=== PATIENT | female | born 1955 | race African-American/Black ===

== ENCOUNTER 2017-05-12 22:12 | Emergency (ER) | payer BC ==
[2017-05-12 22:48] LABS: APPEARANCE,URINE SLIGHTLY-CLOUDY; BILIRUBIN,URINE NEGATIVE (NEGATIVE); GLUCOSE, URINE NEGATIVE (NEGATIVE); KETONES,URINE NEGATIVE (NEGATIVE); LEUKOCYTE ESTERASE,URINE NEGATIVE (NEGATIVE); NITRITE,URINE NEGATIVE (NEGATIVE); PROTEIN,URINE NEGATIVE (NEGATIVE); URINE SPECIFIC GRAVITY 1.025; UROBILINOGEN,URINE NEGATIVE mg/dL (<2.0)
[2017-05-12] MEDS ORDERED: PANTOPRAZOLE SODIUM 40 MG VIAL IV ONE (23:28)
[2017-05-12 23:44] LABS: ABSOLUTE EOSINOPHILS # (AUTO) 0.3 10^3/uL (0.0-0.6); ABSOLUTE LYMPHOCYTES (AUTO) 2.1 10^3/uL (0.5-4.7); ABSOLUTE MONOCYTES (AUTO) 0.5 10^3/uL (0.1-1.4); ABSOLUTE NEUT (AUTO) 1.5 10^3/uL (1.7-8.2); BASOPHILS % (AUTO) 0.8 % (0-2); EOSINOPHILS % (AUTO) 6.3 % (0-6); HEMATOCRIT 36.9 % (36.0-47.0); HEMOGLOBIN 12.6 g/dL (12.0-15.5); HGB HCT DIFFERENCE 0.9; LYMPHOCYTES % (AUTO) 46.6 % (13-45); MEAN CORPUSCULAR HEMOGLOBIN 29.3 pg (27.0-33.4); MEAN CORPUSCULAR HGB CONC 34.2 g/dL (32.0-36.0); MEAN CORPUSCULAR VOLUME 86 fl (80-97); RED BLOOD COUNT 4.29 10^6/uL (3.72-5.28); RED CELL DISTRIBUTION WIDTH 13.8 % (11.5-14.0); SEGMENTED NEUTROPHILS % (AUTO) 34.3 % (42-78); WHITE BLOOD COUNT 4.5 10^3/uL (4.0-10.5)
[2017-05-13 00:03] LABS: ALANINE AMINOTRANSFERASE 34 U/L (9-52); ALKALINE PHOSPHATASE 78 U/L (38-126); ANION GAP 10 (5-19); ASPARTATE AMINO TRANSFERASE 24 U/L (14-36); BILIRUBIN,DIRECT 0.4 mg/dL (0.0-0.4); BILIRUBIN,TOTAL 1.1 mg/dL (0.2-1.3); BLOOD UREA NITROGEN 28 mg/dL (7-20); CARBON DIOXIDE 24 mmol/L (22-30); CHLORIDE 107 mmol/L (98-107); CREATININE RESULT 0.94 mg/dL (0.52-1.25); GLUCOSE 168 mg/dL (75-110); LIPASE 79.4 U/L (23-300); POTASSIUM 4.3 mmol/L (3.6-5.0); SODIUM 140.8 mmol/L (137-145); TOTAL PROTEIN 6.9 g/dL (6.3-8.2)
[2017-05-13 00:15] LABS: PROTHROMBIN TIME 13.2 SEC (11.4-15.4)
[2017-05-13 00:16] LABS: PARTIAL THROMBOPLASTIN TIME 27.5 SEC (23.5-35.8)
[2017-05-13] MEDS ORDERED: NORMAL SALINE 1000 ML 1,000 ML IV ONE ×2 (00:18)
--- NOTE | 2017-05-13 00:28 | ER Document Report ---
ED General - General Chief Complaint: Rectal Pain Stated Complaint: BLOOD IN STOOL Time Seen by Provider: 05/12/17 23:11 TRAVEL OUTSIDE OF THE [place] IN LAST 30 DAYS: No - HPI Patient complains to provider of: Epigastric abdominal pain right red blood per rectum dark stools Notes: Patient coming in for the above-stated symptoms. States started earlier tonight. Patient states yesterday started having epigastric abdominal pain patient states took Prevacid and some Mylanta today started having bright red blood and dark stools. Patient states a history of H. pylori infection diagnosed last year on a EGD patient also states colonoscopy states diagnosed with a small amount diverticulosis and hemorrhoids. Patient also states she is currently on naproxen for arthritic pain and sciatica. - Related Data Allergies/Adverse Reactions: codeine [Codeine] Allergy (Verified 05/12/17 22:14) Past Medical History - Social History Smoking Status: Never Smoker Family History: Reviewed & Not Pertinent Patient has suicidal ideation: No Patient has homicidal ideation: No - Past Medical History Cardiac Medical History: Reports: Hx Hypertension Endocrine Medical History: Denies: Hx Diabetes Mellitus Type 1, Hx Diabetes Mellitus Type 2 Renal/ Medical History: Denies: Hx Peritoneal Dialysis GI Medical History: Reports: Hx Gastroesophageal Reflux Disease Past Surgical History: Reports: Hx Cholecystectomy, Hx Hysterectomy, Hx Oral Surgery - Immunizations Hx Diphtheria, Pertussis, Tetanus Vaccination: Yes Review of Systems - Review of Systems Constitutional: No symptoms reported EENT: No symptoms reported Cardiovascular: No symptoms reported Respiratory: No symptoms reported Gastrointestinal: Abdominal pain, Black stools, Rectal bleeding Genitourinary: No symptoms reported Female Genitourinary: No symptoms reported Musculoskeletal: No symptoms reported Skin: No symptoms reported Hematologic/Lymphatic: No symptoms reported Neurological/Psychological: No symptoms reported -: Yes All other systems reviewed and negative Physical Exam - Vital signs Vitals: Temp Pulse Resp BP Pulse Ox 98.8 F 88 18 143/80 H 98 05/12/17 22:28 05/12/17 22:28 05/12/17 22:28 05/12/17 22:28 05/12/17 22:28 Interpretation: Normal - General General appearance: Appears well, Alert - HEENT Head: Normocephalic, Atraumatic Eyes: Normal Pupils: PERRL - Respiratory Respiratory status: No respiratory distress Chest status: Nontender Breath sounds: Normal Chest palpation: Normal - Cardiovascular Rhythm: Regular Heart sounds: Normal auscultation Murmur: No - Abdominal Inspection: Normal Distension: No distension Bowel sounds: Normal Tenderness: Nontender Organomegaly: No organomegaly - Rectal Stool: Heme positive, Black, Bloody Hemorrhoids: External - Back Back: Normal, Nontender - Extremities General upper extremity: Normal inspection, Nontender, Normal color, Normal ROM , Normal temperature General lower extremity: Normal inspection, Nontender, Normal color, Normal ROM , Normal temperature, Normal weight bearing. No: Ben's sign - Neurological Neuro grossly intact: Yes Cognition: Normal Orientation: AAOx4 Shakir Coma Scale Eye Opening: Spontaneous Shakir Coma Scale Verbal: Oriented Shakir Coma Scale Motor: Obeys Commands Shakir Coma Scale Total: 15 Speech: Normal Motor strength normal: LUE, RUE, LLE, RLE Sensory: Normal - Psychological Associated symptoms: Normal affect, Normal mood - Skin Skin Temperature: Warm Skin Moisture: Dry Skin Color: Normal Course - Re-evaluation Re-evalutation: 05/13/17 00:27 Hemoglobin this time is stable. Vital signs look to be stable to. Patient will have a CT scan performed to evaluate for acute diverticulitis however if this is negative due to lack of GI coverage here more likely patient will require transfer. 05/13/17 02:41 CT scan shows 2 abdominal masses. Concerning for malignancy I did review the CAT scan with the patient. No further bleeding with the patient's history of H pylori and NSAID use now with masses could be a combination upper and lower GI bleed. Discussed with Dr. Jordan of [facility] for transfer patient was be placed on a list as that [facility] at this time is pre-diversion status. I did contact [facility] as well and was notified by the transfer worker doubt that all the information was given about the patient that the hospitalist principal product manager was except once a IMCU bed came up and however this is more likely not occur until later on in the morning. Patient only agreed to transfer to [facility] or [facility]. I did offer other hospitals however patient declined this time. Patient otherwise is stable do believe she will be able to wait until a bed opens up more likely at [facility] patient will be continued be monitored will repeat H&H will continue Protonix. - Vital Signs Vital signs: Temp Pulse Resp BP Pulse Ox 98.8 F 88 15 120/78 99 05/12/17 22:28 05/12/17 22:28 05/13/17 02:01 05/13/17 02:01 05/13/17 02:01 - Laboratory Result Diagrams: 05/12/17 23:30 05/12/17 23:30 Laboratory results interpreted by me: 05/12/17 05/12/17 05/12/17 22:25 23:30 23:30 Seg Neutrophils % 34.3 L Lymphocytes % 46.6 H Eosinophils % 6.3 H Absolute Neutrophils 1.5 L BUN 28 H Glucose 168 H Urine Ascorbic Acid 40 H Discharge - Discharge Clinical Impression: GI bleed Qualifiers: GI bleed type/associated pathology: unspecified gastrointestinal hemorrhage type Qualified Code(s): K92.2 - Gastrointestinal hemorrhage, unspecified Abdominal mass Qualifiers: Abdominal location: unspecified location Qualified Code(s): R19.00 - Intra- abdominal and pelvic swelling, mass and lump, unspecified site Condition: Good Referrals: BERTO MCCLOUD MD [Primary Care Provider] - Follow up as needed
--- NOTE | 2017-05-13 01:44 | RADIOLOGY REPORT (SQ) ---
EXAM DESCRIPTION: CT ABD/PELVIS WITH IV ONLY CLINICAL HISTORY: 61 years Female, abd pain gi bleeding COMPARISON: CR, L-spine, 11/17/2015. TECHNIQUE: 100 mL Isovue-370 IV contrast. This exam was performed according to our departmental dose-optimization program which includes use of Automated Exposure Control, adjustment of the mA and/or kV according to patient size and/or use of iterative reconstruction technique. FINDINGS: 8.6 x nine x 6.0 cm macrolobulated heterogeneous solid mass of the mid and lower central abdomen, moderate upper abdominal, retroperitoneal, mesenteric, and paraceliac lymphadenopathy and globular soft tissue prominence of the sigmoid measuring up to 4.7 cm in diameter. Malignancy is of first consideration. Indeterminate 1.7 cm right renal lesion. No free fluid, no free air, no bowel obstruction. Small hiatal hernia. Cholecystectomy clips. Mild prominence of intrahepatic ducts. 7 cm supraumbilical midline ventral herniation of fat only. Colonic diverticulosis. Appendix not discerned. No evidence of appendicitis. Inferior chest, liver, spleen, adrenals, left kidney, vasculature, moderate lower thoracic diffuse idiopathic skeletal hyperostosis, and bony skeleton appear otherwise unremarkable. IMPRESSION: 1. A 9-cm macrolobulated heterogeneous solid mass of the mid and lower central abdomen, moderate upper abdominal, retroperitoneal, mesenteric, and paraceliac lymphadenopathy and globular soft tissue prominence of the sigmoid measuring up to 4.7 cm in diameter. Malignancy is of first consideration. Optical Instrument Inspector consultation advised. 2. Indeterminate 1.7 cm right renal lesion may indicate a hemorrhagic cyst; cannot exclude neoplasm. Dynamic contrast MRI or CT of the abdomen recommended.
[2017-05-13 04:49] LABS: HEMATOCRIT 32.8 % (36.0-47.0); HEMOGLOBIN 11.1 g/dL (12.0-15.5); HGB HCT DIFFERENCE 0.5; MEAN CORPUSCULAR HEMOGLOBIN 29.3 pg (27.0-33.4); MEAN CORPUSCULAR HGB CONC 33.8 g/dL (32.0-36.0); MEAN CORPUSCULAR VOLUME 87 fl (80-97); RED BLOOD COUNT 3.78 10^6/uL (3.72-5.28); RED CELL DISTRIBUTION WIDTH 14.2 % (11.5-14.0); WHITE BLOOD COUNT 3.7 10^3/uL (4.0-10.5)
[2017-05-13] MEDS ORDERED: PANTOPRAZOLE SODIUM 40 MG VIAL IV SCH (10:00)
[2017-05-13 14:06] VITALS: BP 126/84
== END 2017-05-13 16:00 | disposition short-term general hospital (02) ==
LOC: ER 22:12
DX: K92.2 Gastrointestinal hemorrhage, unspecified (principal); R19.09 Other intra-abdominal and pelvic swelling, mass and lump; R10.11 Right upper quadrant pain; M19.90 Unspecified osteoarthritis, unspecified site; M54.30 Sciatica, unspecified side; I10 Essential (primary) hypertension; Z79.1 Long term (current) use of non-steroidal anti-inflammatories (NSAID); Z87.19 Personal history of other diseases of the digestive system; Z88.5 Allergy status to narcotic agent; Z90.49 Acquired absence of other specified parts of digestive tract; Z90.710 Acquired absence of both cervix and uterus
CPT/HCPCS: 96376; 99284; 96361; 96374; 86900; 86901; 36415; 86850; 83690; 85025; 85027; 85610; 85730; 82272; 80053; 81001; 74177; S0164 ×2; J7030

== ENCOUNTER 2018-01-02 17:00 | Emergency (ER) | payer BC ==
[2018-01-02] MEDS ORDERED: FENTANYL CITRATE INJ/PF 100 MCG/2 ML AMPUL IV ONE (17:16)
[2018-01-02] MEDS ORDERED: METOCLOPRAMIDE HCL ORAL SOLN 10 MG/10 ML UDCUP PO ONE (17:16)
[2018-01-02] MEDS ORDERED: NORMAL SALINE 1000 ML 1,000 ML IV ONE (17:17)
--- NOTE | 2018-01-02 17:19 | ER Document Report ---
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 Had a chemotherapy last week, last 2-3 days having epigastric to mid abdominal pain associated with nausea no vomiting. And also had multiple loose stools. Described as brown in color. She took Imodium which has subsided to some extent. Denies any fever chills or other constitutional symptoms TRAVEL OUTSIDE OF THE [place] IN LAST 30 DAYS: No - Related Data Allergies/Adverse Reactions: codeine [Codeine] Allergy (Verified 05/12/17 22:14) Past Medical History - Past Medical History Cardiac Medical History: Reports: Hx Hypertension Endocrine Medical History: Denies: Hx Diabetes Mellitus Type 1, Hx Diabetes Mellitus Type 2 Renal/ Medical History: Denies: Hx Peritoneal Dialysis GI Medical History: Reports: Hx Gastroesophageal Reflux Disease Past Surgical History: Reports: Hx Cholecystectomy, Hx Hysterectomy, Hx Oral Surgery - Immunizations Hx Diphtheria, Pertussis, Tetanus Vaccination: Yes Physical Exam - Vital signs Vitals: Temp Pulse Resp BP Pulse Ox 99.2 F 108 H 16 128/81 H 98 01/02/18 17:07 01/02/18 17:07 01/02/18 17:07 01/02/18 17:07 01/02/18 17:07 Course - Vital Signs Vital signs: Temp Pulse Resp BP Pulse Ox 99.2 F 108 H 16 128/81 H 98 01/02/18 17:07 01/02/18 17:07 01/02/18 17:07 01/02/18 17:07 01/02/18 17:07 Doctor's Discharge - Discharge Referrals: BERTO MCCLOUD MD [Primary Care Provider] - Follow up as needed
[2018-01-02 17:54] LABS: APPEARANCE,URINE CLEAR; BILIRUBIN,URINE NEGATIVE (NEGATIVE); COLOR,URINE YELLOW; GLUCOSE, URINE NEGATIVE (NEGATIVE); KETONES,URINE NEGATIVE (NEGATIVE); LEUKOCYTE ESTERASE,URINE NEGATIVE (NEGATIVE); NITRITE,URINE NEGATIVE (NEGATIVE); PROTEIN,URINE NEGATIVE (NEGATIVE); URINE SPECIFIC GRAVITY 1.011
--- NOTE | 2018-01-02 18:38 | RADIOLOGY REPORT (SQ) ---
EXAM DESCRIPTION: ACUTE ABDOMEN SERIES COMPLETED DATE/TIME: 01/02/2018 6:01 pm REASON FOR STUDY: Abdominal pain COMPARISON: None. NUMBER OF VIEWS: Three views. TECHNIQUE: Frontal chest, supine abdomen and upright/ abdomen radiographic images acquired. LIMITATIONS: None. FINDINGS: CHEST: Cannot exclude limited retrocardiac infiltrate on the left. FREE AIR: None. No abnormal gas collections. BOWEL GAS PATTERN: Nonobstructive pattern. No dilated loops or air fluid levels. CALCIFICATIONS: No suspicious calcifications. HARDWARE: None in the abdomen. SOFT TISSUES: No gross mass or suggestion of organomegaly. BONES: No acute fracture. No worrisome bone lesions. OTHER: No other significant finding. IMPRESSION: Cannot exclude limited left lower lobe pneumonia. TECHNICAL DOCUMENTATION: JOB ID: [id number] [employer]- All Rights Reserved Reading location - IP/workstation name: [email or web address]
--- NOTE | 2018-01-02 18:59 | ER Document Report ---
ED General - General Chief Complaint: Abdominal Pain Stated Complaint: STOMACH PAIN Time Seen by Provider: 01/02/18 17:16 Notes: 62-year-old female patient to the emergency department for evaluation of diarrhea and abdominal pain. Patient has lymphoma. Had a mass lymph tissue excised in her abdomen approximately 5 months ago. Started chemotherapy. Currently on her second round of chemotherapy developed diarrhea after both rounds of chemotherapy. She denies any blood in the stool at this time. No fever, chills, sweats. Today she is concerned because there is diarrhea with pain. Has had a history of diverticulosis with rectal bleeding. She called her oncologist at [facility] and she was advised to come in for evaluation. Patient denies any severe nausea or vomiting. No other major symptoms at this time. Patient does have a blood clot in the left lower extremity and is currently on blood thinners. Denies any shortness of breath at this time. Patient has a portacatheter in the right subclavian area. Other indwelling lines. Recent PET scans show TRAVEL OUTSIDE OF THE [place] IN LAST 30 DAYS: No - Related Data Allergies/Adverse Reactions: aspirin Adverse Reaction (Verified 01/02/18 17:23) codeine [Codeine] Adverse Reaction (Verified 01/02/18 17:23) Past Medical History - General Information source: Patient - Social History Smoking Status: Unknown if Ever Smoked Cigarette use (# per day): No Frequency of alcohol use: None Drug Abuse: None Lives with: Family Family History: Reviewed & Not Pertinent Patient has suicidal ideation: No Patient has homicidal ideation: No - Past Medical History Cardiac Medical History: Reports: Hx Hypertension Endocrine Medical History: Denies: Hx Diabetes Mellitus Type 1, Hx Diabetes Mellitus Type 2 Renal/ Medical History: Denies: Hx Peritoneal Dialysis Malignancy Medical History: Reports: Other - Lymphoma GI Medical History: Reports: Hx Gastroesophageal Reflux Disease Past Surgical History: Reports: Hx Cholecystectomy, Hx Hysterectomy, Hx Oral Surgery - Immunizations Hx Diphtheria, Pertussis, Tetanus Vaccination: Yes Review of Systems - Review of Systems Constitutional: denies: Fever, Malaise, Weakness EENT: denies: Blurred vision, Double vision, Mouth pain Cardiovascular: denies: Chest pain, Palpitations, Heart racing Respiratory: denies: Cough, Hurts to breathe, Short of breath, Wheezing Gastrointestinal: Abdominal pain, Diarrhea, Nausea. denies: Vomiting Genitourinary: denies: Burning, Dysuria, Discharge Skin: denies: Change in color, Dryness, Lesions, Lumps, Rash Hematologic/Lymphatic: See HPI, Swollen glands Neurological/Psychological: denies: Confusion, Weakness, Numbness Physical Exam - Vital signs Vitals: Temp Pulse Resp BP Pulse Ox 99.2 F 108 H 16 128/81 H 98 01/02/18 17:07 01/02/18 17:07 01/02/18 17:07 01/02/18 17:07 01/02/18 17:07 Interpretation: Normal - General General appearance: Appears well, Alert - HEENT Head: Normocephalic, Atraumatic Eyes: Normal Pupils: PERRL - Respiratory Respiratory status: No respiratory distress Chest status: Nontender Breath sounds: Normal Chest palpation: Normal - Cardiovascular Rhythm: Regular Heart sounds: Normal auscultation Murmur: No Notes: Patient has a Port-A-Cath present in the right anterior chest wall. - Abdominal Inspection: Normal Distension: No distension Bowel sounds: Normal Tenderness: Tender - Mild tenderness to palpation left lower quadrant. No guarding or rebound. Organomegaly: No organomegaly - Back Back: Normal, Nontender - Extremities General upper extremity: Normal inspection, Nontender, Normal color, Normal ROM , Normal temperature General lower extremity: Normal inspection, Nontender, Normal color, Normal ROM , Normal temperature, Normal weight bearing. No: Ben's sign - Neurological Neuro grossly intact: Yes Cognition: Normal Orientation: AAOx4 Shakir Coma Scale Eye Opening: Spontaneous Shakir Coma Scale Verbal: Oriented Shakir Coma Scale Motor: Obeys Commands [place] Coma Scale Total: 15 Speech: Normal Motor strength normal: LUE, RUE, LLE, RLE Sensory: Normal - Psychological Associated symptoms: Normal affect, Normal mood - Skin Skin Temperature: Warm Skin Moisture: Dry Skin Color: Normal Course - Re-evaluation Re-evalutation: 01/02/18 20:39 This is a patient currently undergoing chemotherapy. Had chemotherapy in the last week. Currently having diarrhea. No bloody diarrhea. Left lower quadrant tenderness. CT scan has been ordered. Patient resting comfortably at this time. No other major symptoms. 01/02/18 21:13 Did consult with patient's oncologist, Dr. Vitale. If patient is feeling better she is okay with letting her go home. Patient does have some mild hypokalemia. Will give her an oral dose of some potassium at this time. At this time patient does not require any further pain medication. Feel comfortable sending her home if she would like to go home. - Vital Signs Vital signs: Temp Pulse Resp BP Pulse Ox 99.8 F 95 18 124/59 L 97 01/02/18 19:35 01/02/18 19:35 01/02/18 19:35 01/02/18 19:35 01/02/18 19:35 - Laboratory Result Diagrams: 01/02/18 17:47 01/02/18 17:47 Laboratory results interpreted by me: 01/02/18 01/02/18 01/02/18 17:25 17:47 17:47 WBC 0.8 L* RBC 3.65 L Hgb 10.3 L Hct 30.4 L RDW 18.3 H Plt Count 129 L Seg Neutrophils % 2.5 L Lymphocytes % 72.6 H Monocytes % 18.2 H Basophils % 2.4 H Absolute Neutrophils 0.0 L Potassium 3.1 L Chloride 96 L Carbon Dioxide 33 H Glucose 140 H Urine Urobilinogen 2.0 H Discharge - Discharge Clinical Impression: Chemotherapy induced diarrhea, Hypokalemia Condition: Good Disposition: HOME, SELF-CARE Instructions: Abdominal Pain ([facility]), Diarrhea, Nonspecific ([facility]) Referrals: BERTO MCCLOUD MD [Primary Care Provider] - Follow up as needed
[2018-01-02 19:26] LABS: ABSOLUTE LYMPHOCYTES (AUTO) 0.6 10^3/uL (0.5-4.7); ABSOLUTE MONOCYTES (AUTO) 0.2 10^3/uL (0.1-1.4); ALANINE AMINOTRANSFERASE 32 U/L (9-52); ALBUMIN 3.9 g/dL (3.5-5.0); ALKALINE PHOSPHATASE 85 U/L (38-126); ANION GAP 10 (5-19); ASPARTATE AMINO TRANSFERASE 24 U/L (14-36); BASOPHILS % (AUTO) 2.4 % (0-2); BILIRUBIN,DIRECT 0.3 mg/dL (0.0-0.4); BILIRUBIN,TOTAL 1.3 mg/dL (0.2-1.3); BLOOD UREA NITROGEN 11 mg/dL (7-20); CALCIUM 8.7 mg/dL (8.4-10.2); CARBON DIOXIDE 33 mmol/L (22-30); CHLORIDE 96 mmol/L (98-107); EOSINOPHILS % (AUTO) 4.3 % (0-6); GLUCOSE 140 mg/dL (75-110); HEMATOCRIT 30.4 % (36.0-47.0); HEMOGLOBIN 10.3 g/dL (12.0-15.5); LIPASE 30.3 U/L (23-300); LYMPHOCYTES % (AUTO) 72.6 % (13-45); MEAN CORPUSCULAR HEMOGLOBIN 28.2 pg (27.0-33.4); MEAN CORPUSCULAR HGB CONC 33.8 g/dL (32.0-36.0); MEAN CORPUSCULAR VOLUME 83 fl (80-97); MONOCYTES % (AUTO) 18.2 % (3-13); PLATELET COUNT 129 10^3/uL (150-450); POTASSIUM 3.1 mmol/L (3.6-5.0); RED BLOOD COUNT 3.65 10^6/uL (3.72-5.28); RED CELL DISTRIBUTION WIDTH 18.3 % (11.5-14.0); SEGMENTED NEUTROPHILS % (AUTO) 2.5 % (42-78); SODIUM 139.4 mmol/L (137-145); TOTAL CELLS COUNTED % (AUTO) 100 %; TOTAL PROTEIN 6.6 g/dL (6.3-8.2)
[2018-01-02 19:47] LABS: ANISOCYTOSIS 2+; OVALOCYTES 2+; PLATELET COMMENT DECREASED; POIKILOCYTOSIS 2+; POLYCHROMASIA SLIGHT; TEAR DROP CELLS SLIGHT; WHITE BLOOD COUNT 0.8 10^3/uL (4.0-10.5)
--- NOTE | 2018-01-02 20:38 | RADIOLOGY REPORT (SQ) ---
EXAM DESCRIPTION: CT ABD/PELVIS WITH IV ONLY COMPLETED DATE/TIME: 01/02/2018 8:13 pm REASON FOR STUDY: llq pain and diarrhea COMPARISON: 05/13/2017 TECHNIQUE: CT scan of the abdomen and pelvis performed using helical scanning technique with dynamic intravenous contrast injection. No oral contrast. Images reviewed with lung, soft tissue, and bone windows. Reconstructed coronal and sagittal MPR images reviewed. Delayed images for evaluation of the urinary system also acquired. All images stored on PACS. All CT scanners at this facility use dose modulation, iterative reconstruction, and/or weight based d osing when appropriate to reduce radiation dose to as low as reasonably achievable (ALARA). [facility]: Dose Right [facility]: CareDose [facility]: Dose Right [facility]: Teradose 4D [facility]: [employer] CONTRAST TYPE AND DOSE: contrast/concentration: Isovue 370.00 mg/ml; Total Contrast Delivered: 100.0 ml; Total Saline Delivered: 45.0 ml RENAL FUNCTION: BUN 11 creatinine 0.8 RADIATION DOSE: CT Rad equipment meets quality standard of care and radiation dose reduction techniq ues were employed. CTDIvol: 20.9 - 21.1 mGy. DLP: 2213 mGy-cm.. LIMITATIONS: None. FINDINGS: LOWER CHEST: No significant findings. No nodules or infiltrates. LIVER: Normal size. No masses. No dilated ducts. SPLEEN: Normal size. No focal lesions. PANCREAS: No masses. No significant calcifications. No adjacent inflammation or peripancreatic fluid collections. Pancreatic duct not dilated. GALLBLADDER: Surgically absent. ADRENAL GLANDS: No significant masses or asymmetry. RIGHT KIDNEY AND URETER: No solid masses. A stable small cyst arises from the lower pole. No signi ficant calcifications. No hydronephrosis or hydroureter. LEFT KIDNEY AND URETER: No solid masses. No significant calcifications. No hydronephrosis or hydr oureter. AORTA AND VESSELS: No aneurysm. No dissection. Renal arteries, SMA, celiac without stenosis. RETROPERITONEUM: No retroperitoneal adenopathy, hemorrhage or masses. BOWEL AND PERITONEAL CAVITY: Mild diverticulosis coli. No acute inflammatory changes. APPENDIX: Surgically absent. PELVIS: No mass. No free fluid. Normal bladder. ABDOMINAL WALL: Scarring is present in the anterior abdominal wall. BONES: No significant or acute findings. OTHER: No other significant finding. IMPRESSION: Mild diverticulosis coli. Small renal cyst. No acute finding in the abdomen pelvis. TECHNICAL DOCUMENTATION: JOB ID: [id number] Quality ID # [id number]: Final reports with documentation of one or more dose reduction techniques (e.g., Au tomated exposure control, adjustment of the mA and/or kV according to patient size, use of iterative reconstruction technique) 2010 [employer]- All Rights Reserved Reading location - IP/workstation name: [email or web address]
[2018-01-02] MEDS ORDERED: FAMOTIDINE 20 MG TABLET PO ONE (21:15)
[2018-01-02] MEDS ORDERED: POTASSIUM CHLORIDE 20 MEQ/15 ML UDCUP PO ONE (21:15)
[2018-01-02] MEDS ORDERED: ONDANSETRON ODT 4 MG TAB (6 TAB/ER DISP) PO PRN (21:25)
[2018-01-02] MEDS ORDERED: HYDROCODONE/ACETAMINOPHEN 5-325 MG (6 TAB/ER DISP) PO PRN (21:25)
[2018-01-02 21:53] VITALS: BP 113/74
[2018-01-03 11:38] LABS: PATH REVIEW PATHOLOGIST REVIEWED
== END 2018-01-02 21:50 | disposition home or self-care (01) ==
LOC: ER 17:00
DX: K52.1 Toxic gastroenteritis and colitis (principal); T45.1X5A Adverse effect of antineoplastic and immunosuppressive drugs, initial encounter; C85.90 Non-Hodgkin lymphoma, unspecified, unspecified site; E87.6 Hypokalemia; R11.0 Nausea; R10.9 Unspecified abdominal pain; R10.814 Left lower quadrant abdominal tenderness; I10 Essential (primary) hypertension; E11.9 Type 2 diabetes mellitus without complications; I82.402 Acute embolism and thrombosis of unspecified deep veins of left lower extremity; Z79.01 Long term (current) use of anticoagulants; Z98.890 Other specified postprocedural states; Z90.49 Acquired absence of other specified parts of digestive tract; Z90.710 Acquired absence of both cervix and uterus
CPT/HCPCS: 99284; 36415; 83690; 85025; 80053; 81001; 74022; 74177; J3010; J7030

== ENCOUNTER 2018-01-24 13:24 | Emergency (ER) | payer BC ==
[2018-01-24] MEDS ORDERED: NORMAL SALINE 1000 ML 1,000 ML IV ONE (13:49)
--- NOTE | 2018-01-24 13:49 | ER Document Report ---
ED Medical Screen (RME) - General Chief Complaint: Fever Stated Complaint: FEVER CHEMO PATIENT Time Seen by Provider: 01/24/18 13:44 TRAVEL OUTSIDE OF THE [place] IN LAST 30 DAYS: No - HPI Notes: 01/24/18 13:48 Patient received chemotherapy 01/12/2018 for non-Hodgkin's lymphoma. Fever today. Complains of some lower abdominal pain no cough noted chills no diarrhea no trouble urinating - Related Data Allergies/Adverse Reactions: aspirin Adverse Reaction (Verified 01/02/18 17:23) codeine [Codeine] Adverse Reaction (Verified 01/02/18 17:23) Past Medical History - Social History Chew tobacco use (# tins/day): No Frequency of alcohol use: None Drug Abuse: None - Past Medical History Cardiac Medical History: Reports: Hx Hypertension Endocrine Medical History: Denies: Hx Diabetes Mellitus Type 1, Hx Diabetes Mellitus Type 2 Renal/ Medical History: Denies: Hx Peritoneal Dialysis GI Medical History: Reports: Hx Gastroesophageal Reflux Disease Past Surgical History: Reports: Hx Cholecystectomy, Hx Hysterectomy, Hx Oral Surgery - Immunizations Hx Diphtheria, Pertussis, Tetanus Vaccination: Yes Review of Systems - Review of Systems Constitutional: Fever Physical Exam - Vital signs Vitals: Temp Pulse Resp BP Pulse Ox 102.1 F H 101 H 18 136/81 H 99 01/24/18 13:31 01/24/18 13:31 01/24/18 13:31 01/24/18 13:31 01/24/18 13:31 - General General appearance: Appears well In distress: None - Respiratory Respiratory status: No respiratory distress Chest status: Nontender Breath sounds: Normal Chest palpation: Normal Course - Vital Signs Vital signs: Temp Pulse Resp BP Pulse Ox 102.1 F H 101 H 18 136/81 H 99 01/24/18 13:31 01/24/18 13:31 01/24/18 13:31 01/24/18 13:31 01/24/18 13:31 Doctor's Discharge - Discharge Referrals: BERTO MCCLOUD MD [Primary Care Provider] - Follow up as needed
[2018-01-24] MEDS ORDERED: ACETAMINOPHEN 325 MG TABLET PO ONE (14:31)
--- NOTE | 2018-01-24 14:37 | ER Document Report ---
ED General - General Chief Complaint: Fever Stated Complaint: FEVER CHEMO PATIENT Time Seen by Provider: 01/24/18 13:44 Mode of Arrival: Ambulatory Information source: Patient, Relative, [facility] Records, Outside Facility Records Notes: 62-year-old female with hypertension, Hodgkin's lymphoma and non-Hodgkin's lymphoma reports with complaint of fever and abdominal pain. Patient states fever started yesterday. She states her abdominal pain also started yesterday. Abdominal pain is located in the epigastric and upper chest area. She describes it as an intermittent aching pain that is associated with nausea but no vomiting. Patient denies any cough, chest pain, shortness of breath, dysuria , hematuria, sick contacts. She has been undergoing chemotherapy with Dr. Morgan at [facility]. Her last treatment was January 12. She does have a scheduled PET scan on February 09. She also reports a decrease in her appetite. Her last bowel movements was today and she denies any black or bloody stools. TRAVEL OUTSIDE OF THE [place] IN LAST 30 DAYS: No - HPI Onset: Yesterday Onset/Duration: Gradual, Persistent Quality of pain: Achy Severity: Mild Associated symptoms: Fever, Nausea. denies: Body/muscle aches, Chest pain, Nonproductive cough, Diarrhea, Headache, Vomiting, Shortness of breath Exacerbated by: Denies Relieved by: Denies Similar symptoms previously: No Recently seen / treated by doctor: Yes - 01/12/18 - Related Data Allergies/Adverse Reactions: aspirin Adverse Reaction (Verified 01/02/18 17:23) codeine [Codeine] Adverse Reaction (Verified 01/02/18 17:23) Past Medical History - General Information source: Patient, Relative, [facility] Records - Social History Smoking Status: Never Smoker Chew tobacco use (# tins/day): No Frequency of alcohol use: None Drug Abuse: None Lives with: Family Family History: Reviewed & Not Pertinent Patient has suicidal ideation: No Patient has homicidal ideation: No - Past Medical History Cardiac Medical History: Reports: Hx Hypertension Endocrine Medical History: Denies: Hx Diabetes Mellitus Type 1, Hx Diabetes Mellitus Type 2 Renal/ Medical History: Denies: Hx Peritoneal Dialysis Malignancy Medical History: Reports: Other - Hodgkin's lymphoma GI Medical History: Reports: Hx Gastroesophageal Reflux Disease Past Surgical History: Reports: Hx Cholecystectomy, Hx Hysterectomy, Hx Oral Surgery - Immunizations Hx Diphtheria, Pertussis, Tetanus Vaccination: Yes Review of Systems - Review of Systems Notes: REVIEW OF SYSTEMS: CONSTITUTIONAL : Denies chills, or sweats. Denies recent illness. Denies weight loss, EENT: Denies visual changes, eye pain. Denies nasal or sinus congestion or discharge. Denies sore throat, oral lesions, difficulty swallowing. CARDIOVASCULAR: Denies palpitations. Denies lower extremity edema. RESPIRATORY: Denies cough, cold, or chest congestion. Denies shortness of breath, wheezing. GASTROINTESTINAL: Denies abdominal distention. Denies vomiting, or diarrhea. Denies blood in vomitus, stools, or per rectum. Denies black, tarry stools. Denies constipation. GENITOURINARY: Denies difficulty urinating, painful urination, frequency, blood in urine, or vaginal discharge. MUSCULOSKELETAL: Denies back or neck pain or stiffness. Denies joint pain or swelling. SKIN: Denies rash, lesions or sores. HEMATOLOGIC : Denies easy bruising or bleeding. LYMPHATIC: Denies swollen glands. NEUROLOGICAL: Denies confusion or altered mental status. Denies passing out or loss of consciousness. Denies dizziness or lightheadedness. Denies headache. Denies weakness or paralysis. Denies problems difficulty with ambulation, slurred speech. Denies sensory loss, numbness, or tingling. Denies seizures. PSYCHIATRIC: Denies anxiety or stress. Denies depression, suicidal ideation, or homicidal ideation. Denies visual or auditory hallucinations. Physical Exam - Vital signs Vitals: Temp Pulse Resp BP Pulse Ox 102.1 F H 101 H 18 136/81 H 99 01/24/18 13:31 01/24/18 13:31 01/24/18 13:31 01/24/18 13:31 01/24/18 13:31 Interpretation: Tachycardic, Febrile - Notes Notes: PHYSICAL EXAMINATION: GENERAL: Well-appearing, well-nourished and in no acute distress. HEAD: Atraumatic, normocephalic. EYES: Pupils equal round and reactive to light, extraocular movements intact, conjunctiva are normal. ENT: Nares patent, oropharynx clear without exudates. Moist mucous membranes. NECK: Normal range of motion, supple without lymphadenopathy LUNGS: Breath sounds clear to auscultation bilaterally and equal. No wheezes rales or rhonchi. HEART: Regular rate and rhythm without murmurs ABDOMEN: Soft, nontender, nondistended abdomen. No guarding, no rebound. No masses appreciated. Female : deferred Musculoskeletal: Normal range of motion, no pitting or edema. No cyanosis. NEUROLOGICAL: Cranial nerves grossly intact. Normal speech, normal gait. Normal sensory, motor exams PSYCH: Normal mood, normal affect. SKIN: Warm, Dry, normal turgor, no rashes or lesions noted. Course - Re-evaluation Re-evalutation: 01/24/18 15:[address] Heidi herman. 01/24/18 16:00 Second attempt to reach patient's oncologist Dr. Morgan 01/24/18 16:37 Third attempt to reach patient's oncologist 01/24/18 16:50 [facility] transfer line now contacted. 01/24/18 19:01 I did speak to Dr. Morgan who recommends admission for neutropenic fever. I did speak to the oncology fellow who recommends broad-spectrum antibiotics and repeat CAT scan. Transports occurred quicker than we could complete the CAT scan. I did recontact [facility] to let them know that patient has an indeterminate troponin. She is chest pain-free. EKG does show T-wave inversions but I have no previous EKG to compare. Patient did receive IV fluids , ceftriaxone, Zosyn, aspirin, morphine and Zofran during her ED course. Transfer center recommending us to hold transport which is here waiting due to the patient's indeterminate troponin. Nursing attempted several times to give report but were declined. After multiple phone calls we were given the okay to transfer the patient. 01/24/18 23:23 Patient was reevaluated multiple times. Patient was found to have an elevated but indeterminate troponin. Patient continuously denies chest pain throughout her ED course. 62-year-old female with hypertension, Hodgkin's lymphoma and non-Hodgkin's lymphoma reports with complaint of fever and abdominal pain. Patient states fever started yesterday. She states her abdominal pain also started yesterday. Abdominal pain is located in the epigastric and upper chest area. She describes it as an intermittent aching pain that is associated with nausea but no vomiting. Patient denies any cough, chest pain, shortness of breath, dysuria , hematuria, sick contacts. She has been undergoing chemotherapy with Dr. Morgan at [facility]. Her last treatment was January 12. She does have a scheduled PET scan on February 09. She also reports a decrease in her appetite. Her last bowel movements was today and she denies any black or bloody stools. Upon arrival patient is febrile, tachycardic. She has a benign abdominal exam. Cardiac enzymes were obtained due to the patient's complaint of epigastric abdominal pain and these were elevated but indeterminate. First troponin was 0.074, repeat troponin 0 0.081. Patient continuously denies chest pain. EKG was obtained which does show T-wave inversions in leads V3 through V6. No previous EKG in our system to compare. CBC shows leukopenia, neutropenia. Patient did receive IV fluids, Tylenol, Cipro and Zosyn, morphine, aspirin, Zofran during her ED course. 01/24/18 23:26 01/24/18 23:26 - Vital Signs Vital signs: Temp Pulse Resp BP Pulse Ox 98.6 F 101 H 20 113/71 97 01/24/18 20:15 01/24/18 13:31 01/24/18 20:18 01/24/18 20:18 01/24/18 20:18 - Laboratory Result Diagrams: 01/24/18 14:23 01/24/18 14:23 Laboratory results interpreted by me: 01/24/18 01/24/18 01/24/18 14:23 14:23 14:23 WBC 0.6 L* RBC 3.03 L Hgb 8.8 L Hct 25.9 L RDW 18.8 H Plt Count 104 L Seg Neutrophils % 1.6 L Lymphocytes % 66.7 H Monocytes % 25.2 H Absolute Neutrophils 0.0 L Absolute Lymphocytes 0.4 L PT 16.7 H Glucose 113 H Calcium 8.1 L Urine Urobilinogen 01/24/18 14:38 WBC RBC Hgb Hct RDW Plt Count Seg Neutrophils % Lymphocytes % Monocytes % Absolute Neutrophils Absolute Lymphocytes PT Glucose Calcium Urine Urobilinogen 4.0 H - Diagnostic Test Radiology reviewed: Image reviewed, Reports reviewed - EKG Interpretation by Me EKG shows normal: Sinus rhythm Rate: Normal Rhythm: NSR Voltage: Consistant with LVH When compared to previous EKG there are: Previous EKG unavailable Critical Care Note - Critical Care Note Total time excluding time spent on procedures (mins): 40 - minutes of critical care time spent in direct contact evaluating and reevaluating the patient, treating symptoms, reviewing labs and studies and speaking with family and consultants excluding any procedures Discharge - Discharge Clinical Impression: Neutropenic fever, Elevated troponin, Acute electrocardiogram changes, History of Hodgkin's lymphoma, History of non-Hodgkin's lymphoma, Elevated blood pressure reading Leukopenia Qualifiers: Leukopenia type: unspecified Qualified Code(s): D72.819 - Decreased white blood cell count, unspecified Abdominal pain Qualifiers: Abdominal location: epigastric Qualified Code(s): R10.13 - Epigastric pain Condition: Fair Disposition: [place] Forms: Elevated Blood Pressure Referrals: BERTO MCCLOUD MD [Primary Care Provider] - Follow up as needed
[2018-01-24 14:41] LABS: ABSOLUTE LYMPHOCYTES (AUTO) 0.4 10^3/uL (0.5-4.7); ABSOLUTE MONOCYTES (AUTO) 0.1 10^3/uL (0.1-1.4); EOSINOPHILS % (AUTO) 4.5 % (0-6); HEMATOCRIT 25.9 % (36.0-47.0); HEMOGLOBIN 8.8 g/dL (12.0-15.5); LYMPHOCYTES % (AUTO) 66.7 % (13-45); MEAN CORPUSCULAR HEMOGLOBIN 28.9 pg (27.0-33.4); MEAN CORPUSCULAR HGB CONC 33.8 g/dL (32.0-36.0); MEAN CORPUSCULAR VOLUME 85 fl (80-97); MONOCYTES % (AUTO) 25.2 % (3-13); PLATELET COUNT 104 10^3/uL (150-450); RED BLOOD COUNT 3.03 10^6/uL (3.72-5.28); RED CELL DISTRIBUTION WIDTH 18.8 % (11.5-14.0); SEGMENTED NEUTROPHILS % (AUTO) 1.6 % (42-78); TOTAL CELLS COUNTED % (AUTO) 100 %
[2018-01-24 14:42] LABS: VENOUS BLOOD HCO3 29.5 mmol/L (20-32); VENOUS BLOOD PCO2 48.3 mmHg (35-63); VENOUS BLOOD PH 7.4 (7.30-7.42)
[2018-01-24 14:45] LABS: INTERNATIONAL RATION (INR) 1.29; PROTHROMBIN TIME 16.7 SEC (11.4-15.4)
[2018-01-24 14:54] LABS: BLOOD UREA NITROGEN 10 mg/dL (7-20); CALCIUM 8.1 mg/dL (8.4-10.2); CHLORIDE 102 mmol/L (98-107); GLUCOSE 113 mg/dL (75-110); POTASSIUM 4.1 mmol/L (3.6-5.0)
[2018-01-24 14:55] LABS: ALANINE AMINOTRANSFERASE 25 U/L (9-52); ALBUMIN 3.5 g/dL (3.5-5.0); ALKALINE PHOSPHATASE 68 U/L (38-126); ANION GAP 10 (5-19); ASPARTATE AMINO TRANSFERASE 21 U/L (14-36); BILIRUBIN,DIRECT 0.2 mg/dL (0.0-0.4); BILIRUBIN,TOTAL 1.1 mg/dL (0.2-1.3); CARBON DIOXIDE 27 mmol/L (22-30); SODIUM 139.3 mmol/L (137-145); TOTAL PROTEIN 6.5 g/dL (6.3-8.2)
[2018-01-24 15:02] LABS: WHITE BLOOD COUNT 0.6 10^3/uL (4.0-10.5)
[2018-01-24 15:03] LABS: ANISOCYTOSIS 2+; OVALOCYTES 2+; PLATELET COMMENT DECREASED; POIKILOCYTOSIS 2+; POLYCHROMASIA 1+
--- NOTE | 2018-01-24 15:03 | RADIOLOGY REPORT (SQ) ---
EXAM DESCRIPTION: CHEST 2 VIEWS COMPLETED DATE/TIME: 01/24/2018 2:45 pm REASON FOR STUDY: fever chemo COMPARISON: 07/30/2008 EXAM PARAMETERS: NUMBER OF VIEWS: two views TECHNIQUE: Digital Frontal and Lateral radiographic views of the chest acquired. RADIATION DOSE: NA LIMITATIONS: none FINDINGS: LUNGS AND PLEURA: No opacities, masses or pneumothorax. No pleural effusion. MEDIASTINUM AND HILAR STRUCTURES: No masses or contour abnormalities. HEART AND VASCULAR STRUCTURES: Heart normal size. No evidence for failure. BONES: No acute findings. HARDWARE: Right-sided port with the tip projected over the superior vena cava. OTHER: No other significant finding. IMPRESSION: No active cardiopulmonary disease. No pulmonary pathology to explain the history of fev er. TECHNICAL DOCUMENTATION: JOB ID: [id number] [email or web address]- All Rights Reserved Reading location - IP/workstation name: [email or web address]
[2018-01-24] MEDS ORDERED: ONDANSETRON HCL INJ/PF 4 MG/2 ML SDV IV ONE (15:14)
[2018-01-24 15:26] LABS: APPEARANCE,URINE CLEAR; BILIRUBIN,URINE NEGATIVE (NEGATIVE); COLOR,URINE YELLOW; GLUCOSE, URINE NEGATIVE (NEGATIVE); KETONES,URINE NEGATIVE (NEGATIVE); LEUKOCYTE ESTERASE,URINE NEGATIVE (NEGATIVE); NITRITE,URINE NEGATIVE (NEGATIVE); PROTEIN,URINE NEGATIVE (NEGATIVE); URINE SPECIFIC GRAVITY 1.013
[2018-01-24] MEDS ORDERED: MORPHINE SULFATE 10 MG/ML INJ IV ONE ×2 (16:15→18:55)
[2018-01-24] MEDS ORDERED: PIPERACILLIN/TAZOBACTAM 3.375 GM VIAL IV ONE (17:00)
[2018-01-24] MEDS ORDERED: CEFTRIAXONE 1 GM/D5W RTU 1 GM/50 ML RTUPB IV ONE (17:02)
[2018-01-24] MEDS ORDERED: CEFTRIAXONE INJ 1000 MG VIAL ONE (18:11)
[2018-01-24] MEDS ORDERED: ASPIRIN 81 MG TABLET, CHEWABLE PO ONE ×2 (18:40→18:55)
[2018-01-24 20:24] VITALS: BP 113/71
--- NOTE | 2018-01-24 22:12 | EKG REPORT ---
SEVERITY:- ABNORMAL ECG - SINUS RHYTHM LVH WITH SECONDARY REPOLARIZATION ABNORMALITY : Confirmed by: Gail Roman 24-Jan-2018 22:11:26
--- NOTE | 2018-01-24 22:12 | EKG REPORT ---
SEVERITY:- ABNORMAL ECG - SINUS RHYTHM PROBABLE LVH WITH SECONDARY REPOL ABNRM : Confirmed by: Gail Roman 24-Jan-2018 22:11:39
== END 2018-01-24 20:35 | disposition short-term general hospital (02) ==
LOC: ER 13:24
DX: D70.9 Neutropenia, unspecified (principal); R50.81 Fever presenting with conditions classified elsewhere; R79.89 Other specified abnormal findings of blood chemistry; R94.31 Abnormal electrocardiogram [ECG] [EKG]; C81.90 Hodgkin lymphoma, unspecified, unspecified site; C85.90 Non-Hodgkin lymphoma, unspecified, unspecified site; I10 Essential (primary) hypertension; R10.13 Epigastric pain; R63.0 Anorexia; R11.0 Nausea
CPT/HCPCS: 93005; 99291; 96361; 96375; 96365; 96367; 36415; 87040; 87086; 82962; 85025; 85610; 80053; 81001; 84484; 82803; 83605; 71046; 93010; J2270; J2405; J7030; J0696; J2543

== ENCOUNTER → 2020-01-07 | Outpatient (CLI) | payer MEDICARE ==
[2020-01-07 14:26] VITALS: BP 163/86
--- NOTE | 2020-01-07 14:26 | ER RDC ASSESSMENT REPORT ---
Intake - In the Last 14 days Have you traveled outside [place]?: No Have you been in close contact with someone CONFIRMED: Yes Worked in Healthcare?: No - Symptoms Subjective Fever([place] feverish): No Chills: No Muscule Aches: No Runny Nose: No Sore Throat: No Cough (New or worsening chronic cough): No Shortness of breath: No Nausea or Vomiting: No Headache: No Abdominal Pain: No Diarrhea(3 or more loose stools in last 24 hours): No - Do you have any of the following Chronic lung disease: Asthma or emphysema or COPD: No Cystic Fibrosis: No Diabetes: Yes Diabetes Comment: prediabetic High Blood Pressure: Yes Cardiovascular Disease: No Chronic Kidney Disease: No Chronic Liver Disease: No Chronic blood disorder like Sickle Cell Disease: Yes Weak immune system due to disease or medication: Yes Neurologic condition that limits movement: No Developmental delay - Moderate to Severe: No Recent (within past 2 weeks) or current : No Morbid Obesity (>100 pounds over ideal weight): Yes - Objective Vital Signs: 5'6", 290 lb Temperature: 97.9 F Pulse Rate: 92 Respiratory Rate: 14 Blood Pressure: 163/86 O2 Sat by Pulse Oximetry: 97 Objective: Given above, testing performed: covid Disposition: Home; Selfcare General - General Chief Complaint: Other Time Seen by Provider: 01/07/20 14:15 Mode of Arrival: Ambulatory Information source: Patient - [facility] Notes: Patient presents to clinic for COVID-19 testing after coming in close contact with another COVID 19 positive individual. Patient is asymptomatic. They deny any cough, shortness of breath, fever, chills, muscle aches, rhinorrhea, sore throat, nausea or vomiting, headache, abdominal pain or diarrhea. Patient has no acute medical concerns. - Related Data Allergies/Adverse Reactions: aspirin Adverse Reaction (Verified 01/02/18 17:23) codeine [Codeine] Adverse Reaction (Verified 01/02/18 17:23) Home Medications: Metformin Past Medical History - General Information source: Patient - Social History Smoking Status: Never Smoker Family History: Reviewed & Not Pertinent - Past Medical History Cardiac Medical History: Reports: Hx Hypertension Pulmonary Medical History: Reports: None EENT Medical History: Reports: None Neurological Medical History: Reports: None Endocrine Medical History: Reports: Other. Denies: Hx Diabetes Mellitus Type 1, Hx Diabetes Mellitus Type 2 Other: Prediabetic Renal/ Medical History: Reports: None. Denies: Hx Peritoneal Dialysis Malignancy Medical History: Reports: Hx Lymphoma GI Medical History: Reports: Hx Gastroesophageal Reflux Disease Musculoskeletal Medical History: Reports None Skin Medical History: Reports None Psychiatric Medical History: Reports: None Traumatic Medical History: Reports: None Infectious Medical History: Reports: None Past Surgical History: Reports: Hx Cholecystectomy, Hx Hysterectomy, Hx Oral Surgery, Hx Vascular Surgery - DVT Physical Exam - Vital signs Interpretation: Hypertensive - General General appearance: Appears well, Alert In distress: None Notes: PHYSICAL EXAMINATION: GENERAL: Well-appearing and in no acute distress. HEAD: Atraumatic, normocephalic. EYES: sclera anicteric, conjunctiva are normal. ENT: nares patent. Moist mucous membranes. NECK: Normal range of motion, supple without lymphadenopathy. LUNGS: No increased work of breathing. Lung sounds CTAB and equal. No wheezes rales or rhonchi. HEART: Regular rate and rhythm without murmurs. ABDOMEN: Soft, nontender, normal bowel sounds, no guarding. EXTREMITIES: Normal range of motion, no pitting edema. No cyanosis. NEUROLOGICAL: A&O x 3. Normal speech. PSYCH: Normal mood, normal affect. SKIN: Warm, Dry, normal turgor, no rashes or lesions noted Diagnostic Results Laboratory Results: COVID pending Patient Education/Counseling Counseling/Education: Patient presents for COVID 19 testing after close exposure to another person who has tested positive for COVID 19. Patient is asymptomatic at this time. Patient does not have emergency worrying symptoms such as difficulty breathing, shortness of breath, chest pain, pressure, confusion or cyanosis. Patient appears suitable for discharge as vital signs are stable and patient is nontoxic in appearance. Good return precautions have been discussed with patient, patient verbalized understanding and is agreeable with discharge plan of care at this time. Guidance for worsening S/SX: As a person under investigation for Covid 19, the [facility], division of public health advises you to adhere to t he following guidance until your test results are reported to you. If your test result is positive, you will receive additional information from your provider and your local health department at that time. Remain at home until you are cleared by the health provider or public health authorities. Keep a log of visitors to your home, notify any visitors to your home of your isolation status. If you plan to move to a new address or leave the county, notify the local health department in your County. Call your doctor or seek care if you have an urgent medical need. Before seeking medical care, call ahead to get instructions from the provider before arriving at the medical office clinic or hospital. Notify them that you are being tested for the virus that causes Covid 19 so that arrangements can be made, as necessary, to prevent transmission to others in the healthcare setting. Next, notify the local health department in your county. If a medical emergency arises and you need to call 911, inform the first responders that you are being tested for the virus that causes Covid 19. Next, notify the local health department in your county. RDC Discharge - Discharge Clinical Impression: Encounter for screening laboratory testing for COVID-19 virus in asymptomatic patient Condition: Good Disposition: Home; Selfcare
== END ==
LOC: RDC 13:10
PROVIDERS: ATTEND Registered Nurse
DX: Z20.828 Contact with and (suspected) exposure to other viral communicable diseases (principal); I10 Essential (primary) hypertension; R73.03 Prediabetes; Z79.84 Long term (current) use of oral hypoglycemic drugs; K21.9 Gastro-esophageal reflux disease without esophagitis; E66.01 Morbid (severe) obesity due to excess calories; Z85.72 Personal history of non-Hodgkin lymphomas; Z88.6 Allergy status to analgesic agent
CPT/HCPCS: U0003; C9803; 87635

== ENCOUNTER 2020-02-23 00:13 | Inpatient (IN) | payer MEDICARE ==
[2020-02-23] MEDS ORDERED: ONDANSETRON 4 MG TAB.RAPDIS PO ONE (01:20)
--- NOTE | 2020-02-23 01:22 | ER Document Report ---
ED Medical Screen (RME) - General Chief Complaint: Abdominal Pain >50 Stated Complaint: ABDOMINAL,NAUSEA,VOMITING,DIARRHEA Time Seen by Provider: 02/23/20 01:14 Primary Care Provider: BERTO MCCLOUD MD [Primary Care Provider] - Follow up as needed Notes: Patient is a 64-year-old female with a history of lymphoma who presents emergency department complaint of abdominal pain. Patient states that she started to have a little bit of nausea and diarrhea on Tuesday. Patient states that she also had a little bit of abdominal pain then, but it went away. Patient states that around 1800, the pain got progressively worse. Exam: Patient vomiting in triage. I have greeted and performed a rapid initial assessment of this patient. A comprehensive ED assessment and evaluation of the patient, analysis of test results and completion of medical decision making process will be conducted by an additional ED providers. TRAVEL OUTSIDE OF THE [place] IN LAST 30 DAYS: No - Related Data Allergies/Adverse Reactions: aspirin Adverse Reaction (Verified 01/02/18 17:23) codeine [Codeine] Adverse Reaction (Verified 01/02/18 17:23) Past Medical History - Past Medical History Cardiac Medical History: Reports: Hx Hypertension Endocrine Medical History: Denies: Hx Diabetes Mellitus Type 1, Hx Diabetes Mellitus Type 2 Renal/ Medical History: Denies: Hx Peritoneal Dialysis Malignancy Medical History: Reports: Hx Lymphoma GI Medical History: Reports: Hx Gastroesophageal Reflux Disease Past Surgical History: Reports: Hx Cholecystectomy, Hx Hysterectomy, Hx Oral Surgery, Hx Vascular Surgery - DVT - Immunizations Hx Diphtheria, Pertussis, Tetanus Vaccination: Yes Doctor's Discharge - Discharge Referrals: BERTO MCCLOUD MD [Primary Care Provider] - Follow up as needed
[2020-02-23] MEDS ORDERED: MORPHINE SULFATE 10 MG/ML INJ IV ONE ×2 (01:25→05:33)
[2020-02-23 02:04] LABS: ABSOLUTE BASOPHILS # (AUTO) 0.1 10^3/uL (0.0-0.2); ABSOLUTE EOSINOPHILS # (AUTO) 0.1 10^3/uL (0.0-0.6); ABSOLUTE LYMPHOCYTES (AUTO) 3.1 10^3/uL (0.5-4.7); ABSOLUTE MONOCYTES (AUTO) 0.6 10^3/uL (0.1-1.4); ABSOLUTE NEUT (AUTO) 3.9 10^3/uL (1.7-8.2); BASOPHILS % (AUTO) 0.9 % (0-2); EOSINOPHILS % (AUTO) 1.7 % (0-6); HEMATOCRIT 40.5 % (36.0-47.0); HEMOGLOBIN 13.8 g/dL (12.0-15.5); LYMPHOCYTES % (AUTO) 39.5 % (13-45); MEAN CORPUSCULAR HEMOGLOBIN 30.1 pg (27.0-33.4); MEAN CORPUSCULAR HGB CONC 34.2 g/dL (32.0-36.0); MEAN CORPUSCULAR VOLUME 88 fl (80-97); MONOCYTES % (AUTO) 7.4 % (3-13); PLATELET COUNT 211 10^3/uL (150-450); RED CELL DISTRIBUTION WIDTH 15.2 % (11.5-14.0); SEGMENTED NEUTROPHILS % (AUTO) 50.5 % (42-78); TOTAL CELLS COUNTED % (AUTO) 100 %; WHITE BLOOD COUNT 7.8 10^3/uL (4.0-10.5)
[2020-02-23 02:19] LABS: ALBUMIN 4.4 g/dL (3.5-5.0); ALKALINE PHOSPHATASE 105 U/L (38-126); ANION GAP 10 (5-19); ASPARTATE AMINO TRANSFERASE 22 U/L (14-36); BILIRUBIN,DIRECT 0.3 mg/dL (0.0-0.4); BILIRUBIN,TOTAL 1.1 mg/dL (0.2-1.3); BLOOD UREA NITROGEN 17 mg/dL (7-20); CALCIUM 9.4 mg/dL (8.4-10.2); CARBON DIOXIDE 25 mmol/L (22-30); CHLORIDE 102 mmol/L (98-107); GLUCOSE 153 mg/dL (75-110); POTASSIUM 4.5 mmol/L (3.6-5.0); TOTAL PROTEIN 7.7 g/dL (6.3-8.2)
[2020-02-23 05:04] LABS: APPEARANCE,URINE CLEAR; BILIRUBIN,URINE NEGATIVE (NEGATIVE); COLOR,URINE YELLOW; GLUCOSE, URINE NEGATIVE (NEGATIVE); KETONES,URINE NEGATIVE (NEGATIVE); LEUKOCYTE ESTERASE,URINE NEGATIVE (NEGATIVE); NITRITE,URINE NEGATIVE (NEGATIVE); PROTEIN,URINE NEGATIVE (NEGATIVE); URINE SPECIFIC GRAVITY 1.016; UROBILINOGEN,URINE NEGATIVE mg/dL (<2.0)
--- NOTE | 2020-02-23 06:48 | RADIOLOGY REPORT (SQ) ---
CT ABDOMEN AND PELVIS WITH INTRAVENOUS CONTRAST: 02/23/2020 5:44 AM CDT HISTORY: 64-year old with abdominal pain. COMPARISON: None available TECHNIQUE: Axial contiguous images were obtained from the lung bases to the proximal femurs with intravenous intravenous contrast administered. Sagittal and coronal reconstructions were also obtained and reviewed. This exam was performed according to our departmental dose-optimization program, which includes automated exposure control, adjustment of the mA and/or KV according to the patient's size and/or use of iterative reconstruction technique. FINDINGS: No focal consolidative airspace opacities are seen. No discrete pleural effusions are seen. The cardiac silhouette is enlarged. The visualized hepatic parenchyma is unremarkable. No focal enhancing lesion is seen. Gallbladder is surgically absent. There is mild prominence of the intra and extrahepatic ducts, likely due to postcholecystectomy changes. The spleen is normal in size. The pancreas is unremarkable. The bilateral adrenal glands appear unremarkable. Both kidneys demonstrate no evidence of hydronephrosis. The urinary bladder is mildly distended, and appears grossly unremarkable. The uterus is likely surgically absent. The stomach is moderately distended. There are few mildly dilated loops of small bowel at the left upper abdomen. There is stranding seen at the intra-abdominal wall. Some of the small bowel loops have fecalization suggesting a slow transit. No pericolonic inflammatory stranding is seen. There are multiple diverticula seen within the sigmoid and descending colon, without evidence to suggest diverticulitis. There is a ventral anterior abdominal hernia containing portions of the transverse colon and small bowel. This also communicates with umbilical region. There is no evidence of pneumoperitoneum or free fluid. The aorta and IVC appear normal in size. There is a retroaortic left renal vein. No significantly enlarged lymph nodes are seen in the abdomen or pelvis. Review of the bone show no evidence of any suspicious lytic or blastic lesions. IMPRESSION: There are few mildly dilated loops of small bowel the midline abdomen with fecalization suggesting a slow transit. This likely represents a developing obstruction and may be partial or early. This may partially be due to adhesions within this area. Hepatic steatosis
[2020-02-23] MEDS ORDERED: NORMAL SALINE 1000 ML 1,000 ML IV ONE (08:09)
[2020-02-23] MEDS ORDERED: ONDANSETRON HCL INJ/PF 4 MG/2 ML SDV IV PRN (08:47)
[2020-02-23] MEDS ORDERED: KETOROLAC TROMETHAMINE INJ/PF 30 MG/1 ML SDV IV PRN (08:52)
[2020-02-23] MEDS ORDERED: PHARMACY COMMUNICATION ORDER MC NR (09:00)
--- NOTE | 2020-02-23 09:13 | PDOC H&P ---
History of Present Illness Admission Date/PCP: BERTO MCCLOUD Patient complains of: Nausea, Vomiting, abdominal pain. History of Present Illness: MARCELA CHOE is a 64 year old morbidly obese female with complaints of nausea, vomiting, abdominal pain. Her symptoms have been present for 2 days. They have been worsening. Her pain became so severe, that she presented to the emergency department for evaluation. She rates her pain as 8 out of 10. It does not radiate. It is located in her periumbilical midline. She reports that the hernia has been repaired two previous times. This was done at [facility]. Her lab work appears normal, however her CT scan shows evidence of obstruction at the level of a recurrent periumbilical incisional hernia. She denies any chest pain, shortness of breath, fevers, chills, melena, hematochezia, dizziness, blurry vision, cough, sore throat. She does report chronic diarrhea and constipation. Past Medical History Cardiac Medical History: Reports: Hypertension Endocrine Medical History: Reports: Diabetes Mellitus Type 2 Denies: Diabetes Mellitus Type 1 Malignancy Medical History: Reports: Lymphoma GI Medical History: Reports: Gastroesophageal Reflux Disease Past Surgical History Past Surgical History: Reports: Cholecystectomy, Hysterectomy, Vascular Surgery - DVT Social History Smoking Status: Never Smoker Frequency of Alcohol Use: None Hx Recreational Drug Use: No Hx Prescription Drug Abuse: No Family History Family History: Reviewed & Not Pertinent Parental Family History Reviewed: Yes Children Family History Reviewed: Yes Sibling(s) Family History Reviewed.: Yes Medication/Allergy Home Medications: Lansoprazole [Prevacid] 15 mg PO DAILY 05/13/17 Lisinopril [Zestril] 30 mg PO DAILY 05/13/17 Naproxen 500 mg PO BID 05/13/17 Triamterene/Hydrochlorothiazid [Triamterene-Hctz 50-25 mg Cap] 1 each PO DAILY 05/13/17 Allergies/Adverse Reactions: aspirin Adverse Reaction (Verified 01/02/18 17:23) codeine [Codeine] Adverse Reaction (Verified 01/02/18 17:23) Review of Systems Constitutional: ABSENT: anorexia, chills, fatigue, fever(s) Eyes: ABSENT: visual disturbances Ears: ABSENT: hearing changes Nose, Mouth, and Throat: ABSENT: sore throat Cardiovascular: ABSENT: chest pain, dyspnea on exertion Respiratory: ABSENT: cough Gastrointestinal: PRESENT: abdominal pain, bloating, heartburn, nausea, vomiting. ABSENT: hematemesis, hematochezia, melena Genitourinary: ABSENT: dysuria Musculoskeletal: ABSENT: back pain Integumentary: ABSENT: pruritus, rash Neurological: ABSENT: confusion, convulsions, dizziness Psychiatric: ABSENT: anxiety, depression Endocrine: ABSENT: cold intolerance, heat intolerance Hematologic/Lymphatic: ABSENT: easy bleeding, easy bruising Physical Exam Vital Signs: Temp Pulse Resp BP Pulse Ox 98.4 F 93 18 142/77 H 97 02/23/20 05:35 02/23/20 05:35 02/23/20 05:35 02/23/20 05:35 02/23/20 05:35 Intake & Output 02/22/20 02/23/20 02/24/20 06:59 06:59 06:59 Weight 127 kg General appearance: PRESENT: no acute distress, morbidly obese Head exam: PRESENT: atraumatic, normocephalic Eye exam: PRESENT: EOMI, PERRLA. ABSENT: scleral icterus Mouth exam: PRESENT: moist Neck exam: ABSENT: meningismus, tenderness, thyromegaly, tracheal deviation Respiratory exam: PRESENT: unlabored. ABSENT: tachypnea, wheezes Cardiovascular exam: ABSENT: tachycardia GI/Abdominal exam: PRESENT: soft, tenderness - over midline incisional hernia, other - obese Rectal exam: PRESENT: deferred Extremities exam: ABSENT: clubbing Musculoskeletal exam: ABSENT: deformity Neurological exam: PRESENT: alert, awake, oriented to person, oriented to place, oriented to time, oriented to situation, CN II-XII grossly intact Psychiatric exam: ABSENT: agitated, anxious, depressed Focused psych exam: ABSENT: delusional Skin exam: ABSENT: cyanosis, erythema, jaundice Results Laboratory Results: 02/23/20 01:50 02/23/20 01:50 02/23/20 02/23/20 02/23/20 01:50 01:50 04:42 WBC 7.8 RBC 4.60 Hgb 13.8 Hct 40.5 MCV 88 MCH 30.1 MCHC 34.2 RDW 15.2 H Plt Count 211 Seg Neutrophils % 50.5 Sodium 137.2 Potassium 4.5 Chloride 102 Carbon Dioxide 25 Anion Gap 10 BUN 17 Creatinine 1.00 Est GFR ( Amer) > 60 Glucose 153 H Lactic Acid Calcium 9.4 Total Bilirubin 1.1 AST 22 Alkaline Phosphatase 105 Total Protein 7.7 Albumin 4.4 Lipase 49.3 Urine Color YELLOW Urine Appearance CLEAR Urine pH 5.0 Ur Specific [place] 1.016 Urine Protein NEGATIVE Urine Glucose (UA) NEGATIVE Urine Ketones NEGATIVE Urine Blood SMALL H Urine Nitrite NEGATIVE Ur Leukocyte Esterase NEGATIVE Urine WBC (Auto) 2 Urine RBC (Auto) 0 02/23/20 08:30 WBC RBC Hgb Hct MCV MCH MCHC RDW Plt Count Seg Neutrophils % Sodium Potassium Chloride Carbon Dioxide Anion Gap BUN Creatinine Est GFR ( Amer) Glucose Lactic Acid 1.9 Calcium Total Bilirubin AST Alkaline Phosphatase Total Protein Albumin Lipase Urine Color Urine Appearance Urine pH Ur Specific [place] Urine Protein Urine Glucose (UA) Urine Ketones Urine Blood Urine Nitrite Ur Leukocyte Esterase Urine WBC (Auto) Urine RBC (Auto) Impressions: Abdomen/Pelvis CT 02/23/20 05:25 IMPRESSION: There are few mildly dilated loops of small bowel the midline abdomen with fecalization suggesting a slow transit. This likely represents a developing obstruction and may be partial or early. This may partially be due to adhesions within this area. Hepatic steatosis Assessment & Plan - Diagnosis (1) Small bowel obstruction Is this a current diagnosis for this admission?: Yes (2) Recurrent ventral hernia with obstruction Is this a current diagnosis for this admission?: Yes - Time Anticipated Discharge Disposition: Home, Self Care Anticipated Discharge Timeframe: unknown - Plan Summary Plan Summary: 64-year-old morbidly obese female with a multiply recurrent ventral incisional hernia. The patient has had 2 previous repairs at [facility]. Today she presents with signs, symptoms, and radiologic studies consistent with a bowel obstruction. Plan is the hernia. She has both small and large bowel contained within the hernia. I have discussed intervention with her. She will require surgical intervention to relieve this obstruction, as her hernia is incarcerated. I have discussed transfer to [facility] with her (all of her medical care is obtained there, including her other surgeries). She has declined transfer. She wishes to have surgery here in [place]. Plan for exploratory laparotomy with lysis of adhesions and relief of her bowel obstruction. I plan for closure of the abdomen, but with her morbid obesity and multiply recurrent hernia, her recurrence rate is very close to 100%. I have discussed this with the patient at length, and she is aware. After surgery, she should attempt significant weight loss in an attempt to minimize her hernia recurrence. Risk/Benefits discussed, informed consent obtained, and all questions answered.
--- NOTE | 2020-02-23 09:15 | ER Document Report ---
Entered by RACHAEL MICHAEL SCRIBE 02/23/20 0726 Acting as scribe for:RADHIKA ORTEGA MD ED GI/ - General Chief Complaint: Abdominal Pain >50 Stated Complaint: ABDOMINAL,NAUSEA,VOMITING,DIARRHEA Time Seen by Provider: 02/23/20 01:14 Primary Care Provider: BERTO MCCLOUD MD [Primary Care Provider] - Follow up as needed Information source: Patient Notes: This 64 year old female patient presents to the emergency department today with complaints of abdominal pain for the past x1 week. Patient reports history of Lymphoma and recently had surgery in June. Patient states a periumbilical hernia was found and has not had surgery. Patient states her abdominal pain is where this hernia is and also reports N/V/D. Patient states she finished an antibiotic x1 week ago, is on metformin, and started a vegan diet. Denies fever, chills, or covid exposure. Patient states she was recently tested for covid and came back as negative. TRAVEL OUTSIDE OF THE [place] IN LAST 30 DAYS: No - Related Data Allergies/Adverse Reactions: aspirin Adverse Reaction (Verified 01/02/18 17:23) codeine [Codeine] Adverse Reaction (Verified 01/02/18 17:23) Past Medical History - General Information source: Patient - Social History Smoking Status: Never Smoker Cigarette use (# per day): No Family History: Reviewed & Not Pertinent - Past Medical History Cardiac Medical History: Reports: Hx Hypertension Endocrine Medical History: Reports: Hx Diabetes Mellitus Type 2 Malignancy Medical History: Reports: Hx Lymphoma GI Medical History: Reports: Hx Gastroesophageal Reflux Disease, Other - periumbilical hernia Past Surgical History: Reports: Hx Cholecystectomy, Hx Hysterectomy, Hx Oral Surgery, Hx Vascular Surgery - DVT, Other - Lymphoma resection - Immunizations Hx Diphtheria, Pertussis, Tetanus Vaccination: Yes Review of Systems - Review of Systems Constitutional: See HPI. denies: Chills, Fever EENT: No symptoms reported Cardiovascular: No symptoms reported Respiratory: No symptoms reported Gastrointestinal: See HPI, Abdominal pain, Diarrhea, Nausea, Vomiting Genitourinary: No symptoms reported Female Genitourinary: No symptoms reported Musculoskeletal: No symptoms reported Skin: No symptoms reported Hematologic/Lymphatic: No symptoms reported Neurological/Psychological: No symptoms reported -: Yes All other systems reviewed and negative Physical Exam - Vital signs Vitals: Temp Pulse Resp BP Pulse Ox 98.6 F 87 20 158/76 H 99 02/23/20 01:56 02/23/20 01:56 02/23/20 01:56 02/23/20 01:56 02/23/20 01:56 - General General appearance: Alert, Other - Appears non-toxic - HEENT Head: Normocephalic, Atraumatic Eyes: Normal Pupils: PERRL - Respiratory Respiratory status: No respiratory distress Chest status: Nontender Breath sounds: Normal Chest palpation: Normal - Cardiovascular Rhythm: Regular Heart sounds: Normal auscultation, S1 appreciated, S2 appreciated Murmur: No - Abdominal Inspection: Morbidly Obese Distension: No distension Bowel sounds: Normal Tenderness: Nontender Notes: Healed surgical scar in the RUQ above the umbilicus and medial to center line. Skin is firm and the scar is about the size of a walnut. - Extremities General upper extremity: Normal inspection. No: Edema General lower extremity: Normal inspection. No: Edema - Neurological Neuro grossly intact: Yes Cognition: Normal Orientation: AAOx4 Shakir Coma Scale Eye Opening: Spontaneous Temperance Coma Scale Verbal: Oriented Shakir Coma Scale Motor: Obeys Commands Shakir Coma Scale Total: 15 Speech: Normal - Psychological Associated symptoms: Normal affect, Normal mood - Skin Skin Temperature: Warm Skin Moisture: Dry Skin Color: Normal Course - Re-evaluation Re-evalutation: 02/23/20 09:11 Patient continues to have periumbilical pain in the area of her hernia. - Vital Signs Vital signs: Temp Pulse Resp BP Pulse Ox 98.4 F 93 18 142/77 H 97 02/23/20 05:35 02/23/20 05:35 02/23/20 05:35 02/23/20 05:35 02/23/20 05:35 02/23/20 09:11 Case was discussed with Dr. Devine who has examined patient at bedside and plans to take patient to the operating room today. 02/23/20 09:11 Vital signs are stable. - Laboratory Result Diagrams: 02/23/20 01:50 02/23/20 01:50 Laboratory results interpreted by me: 02/23/20 02/23/20 02/23/20 01:50 01:50 04:42 RDW 15.2 H Est GFR (MDRD) Non-Af 55 L Glucose 153 H Urine Blood SMALL H 02/23/20 09:11 02/23/20 01:50 02/23/20 01:50 MCV 88 fl (80-97) 02/23/20 01:50 MCH 30.1 pg (27.0-33.4) 02/23/20 01:50 MCHC 34.2 g/dL (32.0-36.0) 02/23/20 01:50 RDW 15.2 % (11.5-14.0) H 02/23/20 01:50 Seg Neutrophils % 50.5 % (42-78) 02/23/20 01:50 Chloride 102 mmol/L (98-107) 02/23/20 01:50 Carbon Dioxide 25 mmol/L (22-30) 02/23/20 01:50 Anion Gap 10 (5-19) 02/23/20 01:50 Est GFR ( Amer) > 60 (>60) 02/23/20 01:50 Glucose 153 mg/dL (75-110) H 02/23/20 01:50 Lactic Acid 1.9 mmol/L (0.7-2.1) 02/23/20 08:30 Calcium 9.4 mg/dL (8.4-10.2) 02/23/20 01:50 Total Bilirubin 1.1 mg/dL (0.2-1.3) 02/23/20 01:50 AST 22 U/L (14-36) 02/23/20 01:50 Alkaline Phosphatase 105 U/L (38-126) 02/23/20 01:50 Total Protein 7.7 g/dL (6.3-8.2) 02/23/20 01:50 Albumin 4.4 g/dL (3.5-5.0) 02/23/20 01:50 Lipase 49.3 U/L (23-300) 02/23/20 01:50 Urine Color YELLOW 02/23/20 04:42 Urine Appearance CLEAR 02/23/20 04:42 Urine pH 5.0 (5.0-9.0) 02/23/20 04:42 Ur Specific [place] 1.016 02/23/20 04:42 Urine Protein NEGATIVE mg/dL (NEGATIVE) 02/23/20 04:42 Urine Glucose (UA) NEGATIVE mg/dL (NEGATIVE) 02/23/20 04:42 Urine Ketones NEGATIVE mg/dL (NEGATIVE) 02/23/20 04:42 Urine Blood SMALL (NEGATIVE) H 02/23/20 04:42 Urine Nitrite NEGATIVE (NEGATIVE) 02/23/20 04:42 Ur Leukocyte Esterase NEGATIVE (NEGATIVE) 02/23/20 04:42 Urine WBC (Auto) 2 /HPF 02/23/20 04:42 Urine RBC (Auto) 0 /HPF 02/23/20 04:42 - Diagnostic Test Radiology reviewed: Image reviewed, Reports reviewed Radiology results interpreted by me: 02/23/20 09:12 Abdomen/Pelvis CT 02/23/20 05:25 IMPRESSION: There are few mildly dilated loops of small bowel the midline abdomen with fecalization suggesting a slow transit. This likely represents a developing obstruction and may be partial or early. This may partially be due to adhesions within this area. Hepatic steatosis CT scan of abdomen pelvis discloses dilated loops of small bowel in fistulization of the small bowel suggesting slow transit. Also developing obstruction related to her periumbilical hernia. Discharge - Discharge Clinical Impression: Encounter for screening laboratory testing for COVID-19 virus in asymptomatic patient, Recurrent ventral hernia with obstruction Condition: Fair Disposition: ADMITTED INPATIENT Admitting Provider: [facility] Unit Admitted: Surgical Floor Referrals: BERTO MCCLOUD MD [Primary Care Provider] - Follow up as needed I personally performed the services described in the documentation, reviewed and edited the documentation which was dictated to the scribe in my presence, and it accurately records my words and actions.
[2020-02-23] MEDS: MORPHINE SULFATE 10 MG/ML INJ IV PRN (10:04)
[2020-02-23] MEDS: FAMOTIDINE INJ/PF 20 MG/2 ML SDV IV SCH ×2 (10:04→22:30)
[2020-02-23] MEDS ORDERED: DEXAMETHASONE SOD PHOSPHATE INJ 4 MG/1 ML VIAL ONE (11:03)
[2020-02-23] MEDS ORDERED: SUCCINYLCHOLINE CHLORIDE INJ 200 MG/10 ML VIAL ONE (11:03)
[2020-02-23] MEDS ORDERED: ONDANSETRON HCL INJ/PF 4 MG/2 ML SDV ONE (11:03)
[2020-02-23] MEDS ORDERED: NEOSTIGMINE METHYLSULFATE 10 MG/10 ML VIAL ONE (11:03)
[2020-02-23] MEDS ORDERED: GLYCOPYRROLATE 1 MG/5 ML VIAL ONE (11:03)
[2020-02-23] MEDS ORDERED: PHENYLEPHRINE HCL INJ/PF 10 MG/1 ML SDV ONE (11:03)
[2020-02-23] MEDS ORDERED: ROCURONIUM BROMIDE INJ 50 MG/5 ML VIAL IV ONE (11:03)
--- NOTE | 2020-02-23 11:26 | RADIOLOGY REPORT (SQ) ---
EXAM DESCRIPTION: KUB/ABDOMEN (SINGLE VIEW) IMAGES COMPLETED DATE/TIME: 02/23/2020 9:44 am REASON FOR STUDY: Check Placement of NG Tube COMPARISON: None. NUMBER OF VIEWS: Two views TECHNIQUE: Supine radiographic images of the abdomen acquired. LIMITATIONS: None. FINDINGS: BOWEL GAS PATTERN: A paucity of bowel gas limits evaluation. CALCIFICATIONS: No suspicious calcifications. SOFT TISSUES: No gross mass or suggestion of organomegaly. HARDWARE: An enteric tube is present with the tip and side port projecting over the left upper quadra nt. BONES: No acute fracture. No worrisome bone lesions. OTHER: Subtle patchy opacity is noted at the left lung base. IMPRESSION: Enteric tube with the tip and side port projecting over the left upper quadrant. Subtle patchy opacity is present at the left lung base which may represent atelectasis or infection. TECHNICAL DOCUMENTATION: JOB ID: [id number] 2010 [employer]- All Rights Reserved Reading location - IP/workstation name: [email or web address]
[2020-02-23] MEDS ORDERED: HYDROMORPHONE HCL INJ/PF 2 MG/ML AMPULE ONE (15:02)
[2020-02-23] MEDS ORDERED: PROPOFOL INJ 200 MG/20 ML VIAL IV ONE (15:02)
[2020-02-23] MEDS ORDERED: FENTANYL CITRATE INJ/PF 250 MCG/5 ML AMPULE ONE (15:02)
[2020-02-23] MEDS ORDERED: MIDAZOLAM 2 MG/2 ML INJ ONE (15:02)
[2020-02-23] MEDS ORDERED: BUPIVACAINE HCL 0.25 % INJ/PF (2.5 MG/1 ML) 30 ML VIAL ONE (15:03)
[2020-02-23] MEDS ORDERED: DEXTROSE 40% GEL 15 GM TUBE PO PRN ×2 (15:23)
[2020-02-23] MEDS ORDERED: GLUCAGON,HUMAN RECOMB 1 MG INJ IM PRN (15:23)
[2020-02-23] MEDS ORDERED: DEXTROSE 50%-WATER 25 GM/50 ML DISP.SYRIN IV PRN ×2 (15:23)
[2020-02-23] MEDS ORDERED: CEFOXITIN INJ 2 GM VIAL IV ONE (15:24)
[2020-02-23] MEDS ORDERED: CEFOXITIN 1 GM/D5W RTU 2 GM/100 ML RTUPB IV ONE (15:31)
[2020-02-23] MEDS ORDERED: CEFOXITIN SODIUM 2 GM in DEXTROSE 5%-WATER 100 ML IV PRN (15:34)
--- NOTE | 2020-02-23 17:05 | EKG REPORT ---
SEVERITY:- ABNORMAL ECG - SINUS RHYTHM LVH WITH SECONDARY REPOLARIZATION ABNORMALITY : Confirmed by: Gail Roman 23-Feb-2020 17:05:11
--- NOTE | 2020-02-23 19:03 | Operative Report ---
Nonrecallable Operative Report DATE OF SURGERY: 02/23/20 PREOPERATIVE DIAGNOSIS: 1. Recurrent ventral hernia. 2. Small bowel obstruction POSTOPERATIVE DIAGNOSIS: Same as above OPERATION: 1. Exploratory laparotomy. 2. Extensive lysis of adhesions. 3. Repair of recurrent ventral hernia. 4. Implantation of Vicryl mesh to aid in hernia repair. SURGEON: GERALD MONTEZ ANESTHESIA: GA TISSUE REMOVED OR ALTERED: Hernia sac COMPLICATIONS: None apparent ESTIMATED BLOOD LOSS: 30 cc PROCEDURE: Drains/implants: 15 Frisian round CHAPIS drain in the subcutaneous tissues. Procedure in detail: After informed consent was obtained, the patient was taken to the operating room and laid in the supine position. The area of the abdomen was prepped and draped in a normal sterile fashion. A 15 blade scalpel was used to open a previous midline incision, within the bounds of the previous scar. Dissection was carried through the subcutaneous tissues carefully, using sharp and blunt dissection. The hernia sac was encountered, and carefully entered. This was done sharply. The colon and small bowel were found within multiple English cheese hernia defects. The defects were carefully opened, to until 1 large defect remained. Next, attention to lysis adhesions was undertaken. There were multiple adhesions of colon to small bowel, small bowel to small bowel, and small bowel to anterior abdominal wall. These were taken down sharply. Lysis of adhesions took approximately 1 hour's time. Once the lysis of adhesions was completed, the hernia sac was dissected free of the subcutaneous fat. It was removed from the patient and discarded. A Vicryl mesh was then brought onto the field. This was laid into the abdominal cavity to buttress the fascial closure. The Vicryl mesh was sutured to the anterior abdominal wall circumferentially using interrupted #2 Vicryl sutures. Once the Vicryl mesh was secured into place, the midline fascia was reapproximated using #2 Vicryl in [id number] fashion. A 15 Frisian round Eduardo drain was placed into the subcutaneous tissues (where the hernia sac had resided). It was brought out through a separate stab incision. The drain was sutured to the skin using 2-0 nylon suture. Next, the subcutaneous tissues were closed using 3-0 Vicryl suture in simple interrupted fashion. The overlying skin was closed with skin lashell. A dressing was placed, and the procedure was concluded. All sponge, instrument, and needle counts were correct x2. Issue: Stable.
[2020-02-23] MEDS: INSULIN LISPRO 100 UNIT/ML 3 ML VIAL SUBCUT SCH ×2 (20:41→22:36)
[2020-02-23] MEDS: ACETAMINOPHEN 1,000 MG/100 ML RTUPB IV SCH (22:30)
[2020-02-23] MEDS: KETOROLAC TROMETHAMINE INJ/PF 30 MG/1 ML SDV IV SCH (22:30)
[2020-02-24] MEDS: NORMAL SALINE 1000 ML 1,000 ML IV PRN ×2 (02:59→14:40)
[2020-02-24] MEDS: MORPHINE SULFATE 10 MG/ML INJ IV PRN ×4 (03:02→23:38)
[2020-02-24 04:26] LABS: ABSOLUTE MONOCYTES (AUTO) 0.8 10^3/uL (0.1-1.4); ABSOLUTE NEUT (AUTO) 5.4 10^3/uL (1.7-8.2); BASOPHILS % (AUTO) 0.2 % (0-2); EOSINOPHILS % (AUTO) 0.1 % (0-6); HEMATOCRIT 38.3 % (36.0-47.0); HEMOGLOBIN 12.8 g/dL (12.0-15.5); LYMPHOCYTES % (AUTO) 24.5 % (13-45); MEAN CORPUSCULAR HEMOGLOBIN 29.9 pg (27.0-33.4); MEAN CORPUSCULAR HGB CONC 33.5 g/dL (32.0-36.0); MEAN CORPUSCULAR VOLUME 89 fl (80-97); MONOCYTES % (AUTO) 9.8 % (3-13); PLATELET COUNT 199 10^3/uL (150-450); RED CELL DISTRIBUTION WIDTH 15.2 % (11.5-14.0); SEGMENTED NEUTROPHILS % (AUTO) 65.4 % (42-78); TOTAL CELLS COUNTED % (AUTO) 100 %; WHITE BLOOD COUNT 8.2 10^3/uL (4.0-10.5)
[2020-02-24 04:43] LABS: ANION GAP 10 (5-19); BLOOD UREA NITROGEN 18 mg/dL (7-20); CALCIUM 7.8 mg/dL (8.4-10.2); CARBON DIOXIDE 21 mmol/L (22-30); CHLORIDE 104 mmol/L (98-107); GLUCOSE 151 mg/dL (75-110); POTASSIUM 4.9 mmol/L (3.6-5.0)
[2020-02-24] MEDS: ACETAMINOPHEN 1,000 MG/100 ML RTUPB IV SCH ×3 (05:10→21:51)
[2020-02-24] MEDS: KETOROLAC TROMETHAMINE INJ/PF 30 MG/1 ML SDV IV SCH ×3 (05:14→21:51)
[2020-02-24] MEDS: INSULIN LISPRO 100 UNIT/ML 3 ML VIAL SUBCUT SCH ×4 (07:33→22:00)
[2020-02-24] MEDS: FAMOTIDINE INJ/PF 20 MG/2 ML SDV IV SCH ×2 (09:35→21:51)
[2020-02-24] MEDS: ENOXAPARIN SODIUM INJ 40 MG/0.4 ML DISP.SYRIN SUBCUT SCH (09:35)
--- NOTE | 2020-02-24 12:33 | PDOC PROGRESS REPORT ---
Subjective Progress Note for:: 02/24/20 Reason For Visit: BOWEL OBSTRUCTION, INCISIONAL HERNIA Physical Exam Vital Signs: Temp Pulse Resp BP Pulse Ox 100.0 F 103 H 17 128/68 H 97 02/24/20 12:00 02/24/20 12:00 02/24/20 12:00 02/24/20 12:00 02/24/20 12:00 Intake & Output 02/23/20 02/24/20 02/25/20 06:59 06:59 06:59 Intake Total 2075 Output Total 840 Balance 1235 Weight 119.4 kg Results Laboratory Results: 02/24/20 04:15 02/24/20 04:15 02/24/20 02/24/20 04:15 04:15 WBC 8.2 RBC 4.30 Hgb 12.8 Hct 38.3 MCV 89 MCH 29.9 MCHC 33.5 RDW 15.2 H Plt Count 199 Seg Neutrophils % 65.4 Sodium 135.0 L Potassium 4.9 Chloride 104 Carbon Dioxide 21 L Anion Gap 10 BUN 18 Creatinine 1.06 Est GFR ( Amer) > 60 Glucose 151 H Calcium 7.8 L Impressions: Abdomen/Pelvis CT 02/23/20 05:25 IMPRESSION: There are few mildly dilated loops of small bowel the midline abdomen with fecalization suggesting a slow transit. This likely represents a developing obstruction and may be partial or early. This may partially be due to adhesions within this area. Hepatic steatosis KUB X-Ray 02/23/20 08:53 IMPRESSION: Enteric tube with the tip and side port projecting over the left upper quadrant. Subtle patchy opacity is present at the left lung base which may represent atelectasis or infection. Assessment & Plan - Diagnosis (1) Small bowel obstruction Is this a current diagnosis for this admission?: Yes (2) Recurrent ventral hernia with obstruction Is this a current diagnosis for this admission?: Yes - Time Anticipated Discharge Disposition: Home, Self Care Anticipated Discharge Timeframe: unknown - Plan Summary Plan Summary: 64-year-old morbidly obese female with a multiply recurrent ventral incisional hernia. The patient presented with a bowel obstruction. She is s/p ex-lap with DESHAWN and repair of her ventral hernia. She denies any flatus at present. I have encouraged her to get out of bed and ambulate. Aggressive pulmonary toilet. OK for ice chips and popsicles. D/c beard once able to ambulate.
[2020-02-25] MEDS: NORMAL SALINE 1000 ML 1,000 ML IV PRN ×2 (02:54→13:39)
[2020-02-25] MEDS: ACETAMINOPHEN 1,000 MG/100 ML RTUPB IV SCH ×3 (05:29→21:53)
[2020-02-25] MEDS: KETOROLAC TROMETHAMINE INJ/PF 30 MG/1 ML SDV IV SCH ×3 (05:36→21:58)
[2020-02-25 06:03] LABS: ABSOLUTE EOSINOPHILS # (AUTO) 0.1 10^3/uL (0.0-0.6); ABSOLUTE LYMPHOCYTES (AUTO) 2.3 10^3/uL (0.5-4.7); ABSOLUTE MONOCYTES (AUTO) 0.9 10^3/uL (0.1-1.4); ABSOLUTE NEUT (AUTO) 5.4 10^3/uL (1.7-8.2); BASOPHILS % (AUTO) 0.2 % (0-2); EOSINOPHILS % (AUTO) 1.2 % (0-6); HEMATOCRIT 37.3 % (36.0-47.0); HEMOGLOBIN 12.6 g/dL (12.0-15.5); LYMPHOCYTES % (AUTO) 26.3 % (13-45); MEAN CORPUSCULAR HEMOGLOBIN 30.4 pg (27.0-33.4); MEAN CORPUSCULAR HGB CONC 33.8 g/dL (32.0-36.0); MEAN CORPUSCULAR VOLUME 90 fl (80-97); MONOCYTES % (AUTO) 10.3 % (3-13); PLATELET COUNT 169 10^3/uL (150-450); RED BLOOD COUNT 4.14 10^6/uL (3.72-5.28); RED CELL DISTRIBUTION WIDTH 15.1 % (11.5-14.0); TOTAL CELLS COUNTED % (AUTO) 100 %; WHITE BLOOD COUNT 8.6 10^3/uL (4.0-10.5)
[2020-02-25 06:21] LABS: ANION GAP 10 (5-19); BLOOD UREA NITROGEN 21 mg/dL (7-20); CALCIUM 7.7 mg/dL (8.4-10.2); CARBON DIOXIDE 25 mmol/L (22-30); CHLORIDE 104 mmol/L (98-107); GLUCOSE 122 mg/dL (75-110); POTASSIUM 4.5 mmol/L (3.6-5.0)
[2020-02-25] MEDS: INSULIN LISPRO 100 UNIT/ML 3 ML VIAL SUBCUT SCH ×4 (08:49→21:47)
[2020-02-25] MEDS: ENOXAPARIN SODIUM INJ 40 MG/0.4 ML DISP.SYRIN SUBCUT SCH (10:20)
[2020-02-25] MEDS: FAMOTIDINE INJ/PF 20 MG/2 ML SDV IV SCH ×2 (10:20→21:58)
[2020-02-25] MEDS: MORPHINE SULFATE 10 MG/ML INJ IV PRN ×2 (12:44→18:58)
--- NOTE | 2020-02-25 14:31 | PDOC PROGRESS REPORT ---
Subjective Progress Note for:: 02/25/20 Reason For Visit: BOWEL OBSTRUCTION, INCISIONAL HERNIA Patient sitting in chair; Lang catheter out, awaiting void; nasogastric with minimal drainage Physical Exam Vital Signs: Temp Pulse Resp BP Pulse Ox 98.6 F 102 H 17 116/70 95 02/25/20 12:00 02/25/20 12:00 02/25/20 12:00 02/25/20 12:00 02/25/20 12:00 Intake & Output 02/24/20 02/25/20 02/26/20 06:59 06:59 06:59 Intake Total 2075 2300 1000 Output Total 840 885 Balance 1235 1415 1000 Weight 119.4 kg 119.4 kg General appearance: PRESENT: no acute distress GI/Abdominal exam: PRESENT: other - Abdominal dressing removed; serosanguineous drainage in pelvic drain; wound closed with lashell. Appropriately tender. Results Laboratory Results: 02/25/20 04:49 02/25/20 04:49 02/25/20 02/25/20 04:49 04:49 WBC 8.6 RBC 4.14 Hgb 12.6 Hct 37.3 MCV 90 MCH 30.4 MCHC 33.8 RDW 15.1 H Plt Count 169 Seg Neutrophils % 62.0 Sodium 139.3 Potassium 4.5 Chloride 104 Carbon Dioxide 25 Anion Gap 10 BUN 21 H Creatinine 1.20 Est GFR ( Amer) 54 L Glucose 122 H Calcium 7.7 L Impressions: Abdomen/Pelvis CT 02/23/20 05:25 IMPRESSION: There are few mildly dilated loops of small bowel the midline abdomen with fecalization suggesting a slow transit. This likely represents a developing obstruction and may be partial or early. This may partially be due to adhesions within this area. Hepatic steatosis KUB X-Ray 02/23/20 08:53 IMPRESSION: Enteric tube with the tip and side port projecting over the left upper quadrant. Subtle patchy opacity is present at the left lung base which may represent atelectasis or infection. Assessment & Plan - Diagnosis (1) Recurrent ventral hernia with obstruction Is this a current diagnosis for this admission?: Yes Plan: Impression: Doing reasonably well postop day 2 following exploratory laparotomy, lysis of adhesions, Vicryl mesh repair with drain Plan: 1. We will clamp NG tube, increase ambulation; increase pulmonary toilet 2. Leave abdominal wall dressing open to air; leave drain in. - Time Time Spent: 30 to 50 Minutes Critical Time spent with patient: Less than 15 minutes Medications reviewed and adjusted accordingly: Yes Anticipated Discharge Disposition: Home, Self Care Anticipated Discharge Timeframe: within 72 hours
--- NOTE | 2020-02-25 17:42 | CDI QUERY ---
<HOLLY LEMUS - Last Filed: 02/25/20 17:39> CDI Query CDI Review: Documentation in the Medical Record indicates: Per Surgical H&P: Plan for exploratory laparotomy with lysis of adhesions and relief of her bowel obstruction. I plan for closure of the abdomen, but with her morbid obesity and multiply recurrent hernia, her recurrence rate is very close to 100%. I have discussed this with the patient at length, and she is aware. After surgery, she should attempt significant weight loss in an attempt to minimize her hernia recurrence Height: 5 ft 6 in Weight: 119.4 kg (262.68 lbs) Calculated BMI: 42.4 kg/m2 Based on your medical judgement, can you further clarify in the Progress Notes the diagnosis associated with these findings. Please include in your notes the patients BMI. This supports the Obesity diagnoses: Morbid Obesity / BMI 42.4 kg/m2 Overweight / BMI 42.4 kg/m2 Obesity / BMI 42.4 kg/m2 Other condition (please specify) None of the above / Not applicable Please note: Obesity is defined as: Class 1: BMI of 30 to < 35 Class 2: BMI of 35 to < 40 Class 3: BMI of > 40 (this is also defined as Morbid Obesity) Overweight: BMI 25 to < 30 Normal weight: BMI 18.5 to < 25 Thank you for your consideration. GISSEL Moran RN Clinical Finished Metal Repairer Physician Advisor <GERALD MONTEZ - Last Filed: 03/01/20 10:06> CDI Query CDI Review: BMI is listed on the chart as 45.
--- NOTE | 2020-02-25 17:53 | CDI QUERY ---
<HOLLY LEMUS - Last Filed: 02/25/20 17:52> CDI Query CDI Review: We are seeking further clarification of documentation to reflect the severity of illness of your patient. Diagnoses: 1. Recurrent ventral hernia. 2. Small bowel obstruction Based on your medical judgement, can you further clarify in the Progress Notes if the obstruction is: Complete Incomplete Partial Unable to determine Other Thank you for your consideration. GISSEL Moran RN Clinical Supervisor [employer] Physician Advisor <GERALD MONTEZ - Last Filed: 03/01/20 10:04> CDI Query CDI Review: Complete bowels obstruction Agree with Query: Yes - complete bowel obstruction
[2020-02-26] MEDS: MORPHINE SULFATE 10 MG/ML INJ IV PRN ×2 (01:58→18:40)
[2020-02-26] MEDS: KETOROLAC TROMETHAMINE INJ/PF 30 MG/1 ML SDV IV SCH ×3 (05:07→21:06)
[2020-02-26] MEDS: ACETAMINOPHEN 1,000 MG/100 ML RTUPB IV SCH ×2 (05:08→14:06)
[2020-02-26] MEDS: INSULIN LISPRO 100 UNIT/ML 3 ML VIAL SUBCUT SCH ×4 (07:44→22:09)
[2020-02-26 08:31] LABS: ABSOLUTE EOSINOPHILS # (AUTO) 0.2 10^3/uL (0.0-0.6); ABSOLUTE LYMPHOCYTES (AUTO) 2.5 10^3/uL (0.5-4.7); ABSOLUTE MONOCYTES (AUTO) 0.8 10^3/uL (0.1-1.4); ABSOLUTE NEUT (AUTO) 4.6 10^3/uL (1.7-8.2); BASOPHILS % (AUTO) 0.2 % (0-2); EOSINOPHILS % (AUTO) 2.9 % (0-6); HEMATOCRIT 36.8 % (36.0-47.0); HEMOGLOBIN 12.5 g/dL (12.0-15.5); LYMPHOCYTES % (AUTO) 31.1 % (13-45); MEAN CORPUSCULAR HEMOGLOBIN 30.5 pg (27.0-33.4); MEAN CORPUSCULAR HGB CONC 33.9 g/dL (32.0-36.0); MEAN CORPUSCULAR VOLUME 90 fl (80-97); MONOCYTES % (AUTO) 10.1 % (3-13); PLATELET COUNT 173 10^3/uL (150-450); RED BLOOD COUNT 4.09 10^6/uL (3.72-5.28); RED CELL DISTRIBUTION WIDTH 15.4 % (11.5-14.0); SEGMENTED NEUTROPHILS % (AUTO) 55.7 % (42-78); TOTAL CELLS COUNTED % (AUTO) 100 %; WHITE BLOOD COUNT 8.2 10^3/uL (4.0-10.5)
[2020-02-26 08:50] LABS: ANION GAP 9 (5-19); BLOOD UREA NITROGEN 24 mg/dL (7-20); CALCIUM 7.9 mg/dL (8.4-10.2); CARBON DIOXIDE 21 mmol/L (22-30); CHLORIDE 109 mmol/L (98-107); GLUCOSE 119 mg/dL (75-110); POTASSIUM 4.2 mmol/L (3.6-5.0)
[2020-02-26] MEDS: FAMOTIDINE INJ/PF 20 MG/2 ML SDV IV SCH ×2 (09:26→21:06)
[2020-02-26] MEDS: ENOXAPARIN SODIUM INJ 40 MG/0.4 ML DISP.SYRIN SUBCUT SCH (09:27)
--- NOTE | 2020-02-26 09:51 | PDOC PROGRESS REPORT ---
Subjective Progress Note for:: 02/26/20 Subjective:: Feels okay. No nausea. Does not feel bloated. However has not passed gas nor had a bowel movement. Her NG clamp has been clamped since yesterday with no ill effect. Reason For Visit: BOWEL OBSTRUCTION, INCISIONAL HERNIA Physical Exam Vital Signs: Temp Pulse Resp BP Pulse Ox 98.2 F 119 H 18 102/61 91 L 02/25/20 23:45 02/25/20 23:45 02/25/20 23:45 02/25/20 23:45 02/26/20 05:57 Intake & Output 02/25/20 02/26/20 02/27/20 06:59 06:59 06:59 Intake Total 2300 1300 Output Total 885 Balance 1415 1300 Weight 119.4 kg 124.4 kg General appearance: PRESENT: no acute distress, cooperative, other - Appears very comfortable. Respiratory exam: PRESENT: clear to auscultation silvia Cardiovascular exam: PRESENT: tachycardia - 105 GI/Abdominal exam: PRESENT: other - Soft, nondistended, diminished bowel sounds, mild diffuse abdominal tenderness without peritoneal signs. No erythema. Drain output is serosanguineous. Neurological exam: PRESENT: alert, awake Psychiatric exam: PRESENT: appropriate affect Results Laboratory Results: 02/26/20 08:09 02/26/20 08:09 02/26/20 02/26/20 08:09 08:09 WBC 8.2 RBC 4.09 Hgb 12.5 Hct 36.8 MCV 90 MCH 30.5 MCHC 33.9 RDW 15.4 H Plt Count 173 Seg Neutrophils % 55.7 Sodium 138.6 Potassium 4.2 Chloride 109 H Carbon Dioxide 21 L Anion Gap 9 BUN 24 H Creatinine 1.14 Est GFR ( Amer) 58 L Glucose 119 H Calcium 7.9 L Impressions: Abdomen/Pelvis CT 02/23/20 05:25 IMPRESSION: There are few mildly dilated loops of small bowel the midline abdomen with fecalization suggesting a slow transit. This likely represents a developing obstruction and may be partial or early. This may partially be due to adhesions within this area. Hepatic steatosis KUB X-Ray 02/23/20 08:53 IMPRESSION: Enteric tube with the tip and side port projecting over the left upper quadrant. Subtle patchy opacity is present at the left lung base which may represent atelectasis or infection. Assessment & Plan - Diagnosis (1) Recurrent ventral hernia with obstruction Is this a current diagnosis for this admission?: Yes Plan: Status post lysis of adhesions and a ventral hernia repair with Vicryl mesh. Patient looks a little bit dry. She is tachycardic with mildly elevated creatinine. Her NG output once it was placed to suction this morning was minimal despite flushing. Therefore NG tube was pulled today. However will await flatus or bowel movement prior to starting a diet. Will give her fluid bolus and increase her maintenance IV fluids today. Will recheck labs tomorrow. - Time Critical Time spent with patient: Less than 15 minutes Anticipated Discharge Disposition: Home, Self Care Anticipated Discharge Timeframe: within 72 hours
[2020-02-26] MEDS ORDERED: NORMAL SALINE 1000 ML 1,000 ML IV PRN (10:47)
[2020-02-26] MEDS: NORMAL SALINE 1000 ML 1,000 ML IV PRN ×2 (14:59→21:06)
[2020-02-26] MEDS ORDERED: PHENOL/SODIUM PHENOLATE 100 SPRAY/177 ML BOTTLE PO PRN (20:47)
[2020-02-26] MEDS ORDERED: ACETAMINOPHEN 325 MG TABLET PO ONE (21:00)
--- NOTE | 2020-02-26 21:50 | PDOC PROGRESS REPORT ---
Subjective Progress Note for:: 02/26/20 Subjective:: Had a low-grade fever earlier this evening but feels much better now. Resting comfortably. Denies any dysuria. Denies any calf pain. Denies any shortness of breath. Abdominal pain is stable. No emesis. Reason For Visit: BOWEL OBSTRUCTION, INCISIONAL HERNIA Physical Exam Vital Signs: Temp Pulse Resp BP Pulse Ox 97.9 F 103 H 20 122/77 95 02/26/20 15:25 02/26/20 15:25 02/26/20 15:25 02/26/20 15:25 02/26/20 15:25 Intake & Output 02/25/20 02/26/20 02/27/20 06:59 06:59 06:59 Intake Total 2300 1300 2855 Output Total 885 365 Balance 1415 1300 2490 Weight 119.4 kg 124.4 kg General appearance: PRESENT: no acute distress, cooperative Respiratory exam: PRESENT: clear to auscultation silvia - Diminished breath sounds at the bases. Cardiovascular exam: PRESENT: RRR GI/Abdominal exam: PRESENT: other - Soft, nondistended, appropriate mild diffuse abdominal tenderness without peritoneal signs. Wound is clean dry and intact with lashell. Drain output is serosanguineous. Extremities exam: PRESENT: other - No leg swelling or tenderness Results Laboratory Results: 02/26/20 08:09 02/26/20 08:09 02/26/20 02/26/20 08:09 08:09 WBC 8.2 RBC 4.09 Hgb 12.5 Hct 36.8 MCV 90 MCH 30.5 MCHC 33.9 RDW 15.4 H Plt Count 173 Seg Neutrophils % 55.7 Sodium 138.6 Potassium 4.2 Chloride 109 H Carbon Dioxide 21 L Anion Gap 9 BUN 24 H Creatinine 1.14 Est GFR ( Amer) 58 L Glucose 119 H Calcium 7.9 L Impressions: Abdomen/Pelvis CT 02/23/20 05:25 IMPRESSION: There are few mildly dilated loops of small bowel the midline abdomen with fecalization suggesting a slow transit. This likely represents a developing obstruction and may be partial or early. This may partially be due to adhesions within this area. Hepatic steatosis KUB X-Ray 02/23/20 08:53 IMPRESSION: Enteric tube with the tip and side port projecting over the left upper quadrant. Subtle patchy opacity is present at the left lung base which may represent atelectasis or infection. Assessment & Plan - Diagnosis (1) Recurrent ventral hernia with obstruction Is this a current diagnosis for this admission?: Yes Plan: Looks okay. Encourage pulmonary toilet. - Time Critical Time spent with patient: Less than 15 minutes Anticipated Discharge Disposition: Home, Self Care Anticipated Discharge Timeframe: 1 week
[2020-02-26] MEDS ORDERED: MELATONIN 5 MG TABLET PO PRN (22:00)
[2020-02-27] MEDS: MORPHINE SULFATE 10 MG/ML INJ IV PRN ×2 (03:28→23:57)
[2020-02-27] MEDS: NORMAL SALINE 1000 ML 1,000 ML IV PRN ×3 (03:28→22:37)
[2020-02-27] MEDS: KETOROLAC TROMETHAMINE INJ/PF 30 MG/1 ML SDV IV SCH ×3 (05:03→22:33)
[2020-02-27 07:19] LABS: ANION GAP 9 (5-19); BLOOD UREA NITROGEN 23 mg/dL (7-20); CARBON DIOXIDE 19 mmol/L (22-30); CHLORIDE 113 mmol/L (98-107); GLUCOSE 112 mg/dL (75-110); POTASSIUM 4.2 mmol/L (3.6-5.0)
--- NOTE | 2020-02-27 09:14 | PDOC PROGRESS REPORT ---
Subjective Progress Note for:: 02/27/20 Subjective:: feels ok no flatus yet Reason For Visit: BOWEL OBSTRUCTION, INCISIONAL HERNIA Physical Exam Vital Signs: Temp Pulse Resp BP Pulse Ox 100.4 F 95 18 126/56 H 95 02/27/20 03:35 02/27/20 03:35 02/27/20 03:35 02/27/20 03:35 02/27/20 03:35 Intake & Output 02/26/20 02/27/20 02/28/20 06:59 06:59 06:59 Intake Total 1300 4075 Output Total 745 Balance 1300 3330 Weight 124.4 kg 126.4 kg General appearance: PRESENT: no acute distress, morbidly obese Head exam: PRESENT: normocephalic Eye exam: PRESENT: EOMI Ear exam: PRESENT: normal external ear exam Mouth exam: PRESENT: neck supple Teeth exam: PRESENT: poor dentation Neck exam: PRESENT: full ROM Respiratory exam: PRESENT: clear to auscultation silvia Cardiovascular exam: PRESENT: RRR Pulses: PRESENT: normal radial pulses, normal femoral pulses Breast: PRESENT: Normal GI/Abdominal exam: PRESENT: soft, other - midline wound clean dry kris serous drainage. Rectal exam: PRESENT: deferred Extremities exam: PRESENT: full ROM Musculoskeletal exam: PRESENT: full ROM Neurological exam: PRESENT: alert, awake, oriented to person, oriented to place Psychiatric exam: PRESENT: appropriate affect Skin exam: PRESENT: dry Results Laboratory Results: 02/26/20 08:09 02/27/20 06:04 02/27/20 06:04 Sodium 141.2 Potassium 4.2 Chloride 113 H Carbon Dioxide 19 L Anion Gap 9 BUN 23 H Creatinine 0.95 Est GFR ( Amer) > 60 Glucose 112 H Calcium 8.0 L Impressions: Abdomen/Pelvis CT 02/23/20 05:25 IMPRESSION: There are few mildly dilated loops of small bowel the midline abdomen with fecalization suggesting a slow transit. This likely represents a developing obstruction and may be partial or early. This may partially be due to adhesions within this area. Hepatic steatosis KUB X-Ray 02/23/20 08:53 IMPRESSION: Enteric tube with the tip and side port projecting over the left upper quadrant. Subtle patchy opacity is present at the left lung base which may represent atelectasis or infection. Assessment & Plan - Time Anticipated Discharge Disposition: Home, Self Care Anticipated Discharge Timeframe: unk - Plan Summary Plan Summary: s/p exlap and lyis of adhesions for sbo doing ok still no flatus, although ng removed yesterday and pt jamison sips of clears will cont current course await return of bowel function.
[2020-02-27] MEDS: INSULIN LISPRO 100 UNIT/ML 3 ML VIAL SUBCUT SCH ×4 (09:47→22:08)
[2020-02-27] MEDS: FAMOTIDINE INJ/PF 20 MG/2 ML SDV IV SCH ×2 (09:54→22:33)
[2020-02-27] MEDS: ENOXAPARIN SODIUM INJ 40 MG/0.4 ML DISP.SYRIN SUBCUT SCH (09:57)
[2020-02-28] MEDS: KETOROLAC TROMETHAMINE INJ/PF 30 MG/1 ML SDV IV SCH ×2 (05:09→14:21)
[2020-02-28] MEDS: NORMAL SALINE 1000 ML 1,000 ML IV PRN (05:12)
[2020-02-28] MEDS: INSULIN LISPRO 100 UNIT/ML 3 ML VIAL SUBCUT SCH ×4 (08:12→23:18)
[2020-02-28] MEDS: FAMOTIDINE INJ/PF 20 MG/2 ML SDV IV SCH ×2 (10:34→21:39)
[2020-02-28] MEDS: ENOXAPARIN SODIUM INJ 40 MG/0.4 ML DISP.SYRIN SUBCUT SCH (10:34)
--- NOTE | 2020-02-28 11:02 | PDOC PROGRESS REPORT ---
Subjective Progress Note for:: 02/28/20 Subjective:: Feels well. Passing gas. Hungry. Reason For Visit: BOWEL OBSTRUCTION, INCISIONAL HERNIA Physical Exam Vital Signs: Temp Pulse Resp BP Pulse Ox 98.0 F 69 18 125/76 100 02/28/20 07:55 02/28/20 07:55 02/28/20 07:55 02/28/20 07:55 02/28/20 07:55 Intake & Output 02/27/20 02/28/20 02/29/20 06:59 06:59 06:59 Intake Total 4075 2987 Output Total 745 257 Balance 3330 2730 Weight 126.4 kg 126.8 kg General appearance: PRESENT: no acute distress, cooperative Respiratory exam: PRESENT: clear to auscultation silvia Cardiovascular exam: PRESENT: RRR GI/Abdominal exam: PRESENT: other - Soft, nondistended, minimal tenderness. Wound clean dry and intact. No erythema. Drain output is serosanguineous. Active bowel sounds. Results Laboratory Results: 02/26/20 08:09 02/27/20 06:04 Impressions: Abdomen/Pelvis CT 02/23/20 05:25 IMPRESSION: There are few mildly dilated loops of small bowel the midline abdomen with fecalization suggesting a slow transit. This likely represents a developing obstruction and may be partial or early. This may partially be due to adhesions within this area. Hepatic steatosis KUB X-Ray 02/23/20 08:53 IMPRESSION: Enteric tube with the tip and side port projecting over the left upper quadrant. Subtle patchy opacity is present at the left lung base which may represent atelectasis or infection. Assessment & Plan - Diagnosis (1) Recurrent ventral hernia with obstruction Is this a current diagnosis for this admission?: Yes Plan: Status post ventral hernia repair with Vicryl mesh and lysis of adhesion. Patient looks very good. Will start a liquid diet today. - Time Anticipated Discharge Disposition: Home, Self Care Anticipated Discharge Timeframe: within 36 hours
[2020-02-28] MEDS: OXYCODONE-ACETAMINOPHEN 5-325 MG TABLET PO PRN (21:39)
[2020-02-29] MEDS: OXYCODONE-ACETAMINOPHEN 5-325 MG TABLET PO PRN ×3 (04:22→20:45)
[2020-02-29] MEDS: INSULIN LISPRO 100 UNIT/ML 3 ML VIAL SUBCUT SCH ×4 (07:39→21:50)
[2020-02-29] MEDS: ENOXAPARIN SODIUM INJ 40 MG/0.4 ML DISP.SYRIN SUBCUT SCH (09:52)
[2020-02-29] MEDS: FAMOTIDINE INJ/PF 20 MG/2 ML SDV IV SCH (09:53)
[2020-02-29] MEDS ORDERED: NAPROXEN SODIUM 220 MG PO PRN (16:15)
[2020-02-29] MEDS ORDERED: CYCLOBENZAPRINE HCL 10 MG TABLET PO PRN (16:15)
[2020-02-29] MEDS ORDERED: NAPROXEN 250 MG TABLET PO PRN (16:26)
[2020-02-29] MEDS: METFORMIN HCL 850 MG TABLET PO SCH (17:17)
--- NOTE | 2020-02-29 20:19 | PDOC PROGRESS REPORT ---
Subjective Progress Note for:: 02/29/20 Reason For Visit: BOWEL OBSTRUCTION, INCISIONAL HERNIA Physical Exam Vital Signs: Temp Pulse Resp BP Pulse Ox 98.3 F 72 18 158/86 H 99 02/29/20 15:59 02/29/20 15:59 02/29/20 15:59 02/29/20 15:59 02/29/20 15:59 Intake & Output 02/28/20 02/29/20 03/01/20 06:59 06:59 06:59 Intake Total 2987 1320 Output Total 257 220 Balance 2730 1100 Weight 126.8 kg 128.3 kg 128.3 kg Results Laboratory Results: 02/26/20 08:09 02/27/20 06:04 Impressions: Abdomen/Pelvis CT 02/23/20 05:25 IMPRESSION: There are few mildly dilated loops of small bowel the midline abdomen with fecalization suggesting a slow transit. This likely represents a developing obstruction and may be partial or early. This may partially be due to adhesions within this area. Hepatic steatosis KUB X-Ray 02/23/20 08:53 IMPRESSION: Enteric tube with the tip and side port projecting over the left upper quadrant. Subtle patchy opacity is present at the left lung base which may represent atelectasis or infection. Assessment & Plan - Diagnosis (1) Small bowel obstruction Is this a current diagnosis for this admission?: Yes (2) Recurrent ventral hernia with obstruction Is this a current diagnosis for this admission?: Yes - Time Anticipated Discharge Disposition: Home, Self Care Anticipated Discharge Timeframe: within 24 hours - Plan Summary Plan Summary: 64-year-old female status post exploratory laparotomy and lysis of adhesions for a bowel obstruction (related to a [place] cheese ventral hernia). The patient is doing well today. She is tolerating a liquid diet. She is passing flatus. I will advance her to regular food. I have encouraged her to ambulate in the hallways, which she has been doing. Her pulmonary toilet is good. She finds adequate relief with oral pain medications. Likely home tomorrow.
--- NOTE | 2020-03-01 06:42 | PDOC DISCHARGE SUMMARY ---
General - Admit/Disc Date/PCP Admission Date/Primary Care Provider: 02/23/20 09:22 BERTO MCCLOUD Discharge Date: 03/01/20 - Discharge Diagnosis Final Diagnosis: Small bowel obstruction, recurrent ventral hernia. - Assessment Summary: 64-year-old obese female admitted to the hospital with a small bowel obstruction related to her incarcerated, recurrent ventral hernia. The patient underwent immediate surgery. Afterward, she was taken to the floor in stable condition. She progressed well on the floor. She began having bowel function. Her diet was advanced, and she tolerated it well. By 03/01/2020, she was ambulating, tolerating a diet, her pain was controlled with oral pain medications, and it was felt that she had reached maximal hospital benefit. At this time she is medically fit for discharge. - Additional Information Resuscitation Status: Full Code Discharge Diet: As Tolerated Discharge Activity: Balance Activity w/Rest, No Lifting Over 10 Pounds, No Lifting/Push/Pulling Referrals: BERTO MCCLOUD MD [Primary Care Provider] - Follow up as needed Prescriptions: Hydrocodone/Acetaminophen [[place] 10-325 mg Tablet] 1 tab PO Q6HP PRN #20 tablet PRN Reason: For Pain Home Medications: Cyclobenzaprine HCl [Flexeril 10 mg Tablet] 5 mg PO TIDP PRN 02/24/20 Doxazosin Mesylate [Cardura 1 mg Tablet] 1 mg PO DAILY 02/24/20 Irbesartan/Hydrochlorothiazide [Irbesartan-Hctz 300-12.5 mg Tb] 1 each PO DAILY 02/24/20 Metformin HCl [Glucophage 850 mg Tablet] 850 mg PO BID 02/24/20 Naproxen Sodium [Aleve] 220 mg PO DAILYP PRN 02/24/20 Pantoprazole Sodium [Protonix] 40 mg PO DAILY 02/24/20 Hydrocodone/Acetaminophen [[place] 10-325 mg Tablet] 1 tab PO Q6HP PRN #20 tablet 03/01/20 Additional Information: Discharge home. Diet as tolerated. Activity: Nonstrenuous, no lifting greater than 10 pounds. Okay to shower. No tub baths or swimming pools x2 weeks. Follow-up with [facility] in 7-10 days. [place] 10/325 mg p.o. every 6 hours PRN for pain. Resume all home medications as previously prescribed. History of Present Illiness History of Present Illness: MARCELA CHOE is a 64 year old morbidly obese female with complaints of nausea, vomiting, abdominal pain. Her symptoms have been present for 2 days. They have been worsening. Her pain became so severe, that she presented to the emergency department for evaluation. She rates her pain as 8 out of 10. It does not radiate. It is located in her periumbilical midline. She reports that the hernia has been repaired two previous times. This was done at [facility]. Her lab work appears normal, however her CT scan shows evidence of obstruction at the level of a recurrent periumbilical incisional hernia. She denies any chest pain, shortness of breath, fevers, chills, melena, hematochezia, dizziness, blurry vision, cough, sore throat. She does report chronic diarrhea and constipation. Physical Exam Vital Signs: Temp Pulse Resp BP Pulse Ox 98.9 F 75 16 152/70 H 97 02/29/20 23:47 02/29/20 23:47 02/29/20 23:47 02/29/20 23:47 02/29/20 23:47 Intake & Output 02/28/20 02/29/20 03/01/20 06:59 06:59 06:59 Intake Total 2987 1320 360 Output Total 257 220 420 Balance 2730 1100 -60 Weight 126.8 kg 128.3 kg 126.5 kg Results Laboratory Results: WBC 8.2 10^3/uL (4.0-10.5) 02/26/20 08:09 RBC 4.09 10^6/uL (3.72-5.28) 02/26/20 08:09 Hgb 12.5 g/dL (12.0-15.5) 02/26/20 08:09 Hct 36.8 % (36.0-47.0) 02/26/20 08:09 MCV 90 fl (80-97) 02/26/20 08:09 MCH 30.5 pg (27.0-33.4) 02/26/20 08:09 MCHC 33.9 g/dL (32.0-36.0) 02/26/20 08:09 RDW 15.4 % (11.5-14.0) H 02/26/20 08:09 Plt Count 173 10^3/uL (150-450) 02/26/20 08:09 Lymph % (Auto) 31.1 % (13-45) 02/26/20 08:09 [place] % (Auto) 10.1 % (3-13) 02/26/20 08:09 Eos % (Auto) 2.9 % (0-6) 02/26/20 08:09 Baso % (Auto) 0.2 % (0-2) 02/26/20 08:09 Absolute Neuts (auto) 4.6 10^3/uL (1.7-8.2) 02/26/20 08:09 Absolute Lymphs (auto) 2.5 10^3/uL (0.5-4.7) 02/26/20 08:09 Absolute Monos (auto) 0.8 10^3/uL (0.1-1.4) 02/26/20 08:09 Absolute Eos (auto) 0.2 10^3/uL (0.0-0.6) 02/26/20 08:09 Absolute Basos (auto) 0.0 10^3/uL (0.0-0.2) 02/26/20 08:09 Seg Neutrophils % 55.7 % (42-78) 02/26/20 08:09 Sodium 141.2 mmol/L (137-145) 02/27/20 06:04 Potassium 4.2 mmol/L (3.6-5.0) 02/27/20 06:04 Chloride 113 mmol/L (98-107) H 02/27/20 06:04 Carbon Dioxide 19 mmol/L (22-30) L 02/27/20 06:04 Anion Gap 9 (5-19) 02/27/20 06:04 BUN 23 mg/dL (7-20) H 02/27/20 06:04 Creatinine 0.95 mg/dL (0.52-1.25) 02/27/20 06:04 Est GFR ( Amer) > 60 (>60) 02/27/20 06:04 Est GFR (MDRD) Non-Af 59 (>60) L 02/27/20 06:04 Glucose 112 mg/dL (75-110) H 02/27/20 06:04 POC Glucose 104 mg/dL (70-110) 02/29/20 20:35 Lactic Acid 1.9 mmol/L (0.7-2.1) 02/23/20 08:30 Calcium 8.0 mg/dL (8.4-10.2) L 02/27/20 06:04 Total Bilirubin 1.1 mg/dL (0.2-1.3) 02/23/20 01:50 Direct Bilirubin 0.3 mg/dL (0.0-0.4) 02/23/20 01:50 Neonat Total Bilirubin Not Reportable 02/23/20 01:50 Neonat Direct Bilirubin Not Reportable 02/23/20 01:50 Neonat Indirect Bili Not Reportable 02/23/20 01:50 AST 22 U/L (14-36) 02/23/20 01:50 ALT 16 U/L (<35) 02/23/20 01:50 Alkaline Phosphatase 105 U/L (38-126) 02/23/20 01:50 Total Protein 7.7 g/dL (6.3-8.2) 02/23/20 01:50 Albumin 4.4 g/dL (3.5-5.0) 02/23/20 01:50 Lipase 49.3 U/L (23-300) 02/23/20 01:50 Urine Color YELLOW 02/23/20 04:42 Urine Appearance CLEAR 02/23/20 04:42 Urine pH 5.0 (5.0-9.0) 02/23/20 04:42 Ur Specific [place] 1.016 02/23/20 04:42 Urine Protein NEGATIVE mg/dL (NEGATIVE) 02/23/20 04:42 Urine Glucose (UA) NEGATIVE mg/dL (NEGATIVE) 02/23/20 04:42 Urine Ketones NEGATIVE mg/dL (NEGATIVE) 02/23/20 04:42 Urine Blood SMALL (NEGATIVE) H 02/23/20 04:42 Urine Nitrite NEGATIVE (NEGATIVE) 02/23/20 04:42 Urine Bilirubin NEGATIVE (NEGATIVE) 02/23/20 04:42 Urine Urobilinogen NEGATIVE mg/dL (<2.0) 02/23/20 04:42 Ur Leukocyte Esterase NEGATIVE (NEGATIVE) 02/23/20 04:42 Urine WBC (Auto) 2 /HPF 02/23/20 04:42 Urine RBC (Auto) 0 /HPF 02/23/20 04:42 Urine Bacteria (Auto) TRACE /HPF 02/23/20 04:42 Squamous Epi Cells Auto 3 /HPF 02/23/20 04:42 Urine Mucus (Auto) RARE /LPF 02/23/20 04:42 Urine Ascorbic Acid NEGATIVE (NEGATIVE) 02/23/20 04:42 SARS-CoV-2 (PCR) NEGATIVE (NEGATIVE) 02/23/20 09:15 Impressions: Abdomen/Pelvis CT 02/23/20 05:25 IMPRESSION: There are few mildly dilated loops of small bowel the midline abdomen with fecalization suggesting a slow transit. This likely represents a developing obstruction and may be partial or early. This may partially be due to adhesions within this area. Hepatic steatosis KUB X-Ray 02/23/20 08:53 IMPRESSION: Enteric tube with the tip and side port projecting over the left upper quadrant. Subtle patchy opacity is present at the left lung base which may represent atelectasis or infection.
[2020-03-01] MEDS: INSULIN LISPRO 100 UNIT/ML 3 ML VIAL SUBCUT SCH (07:27)
[2020-03-01 08:19] VITALS: BP 139/65
[2020-03-01] MEDS: ENOXAPARIN SODIUM INJ 40 MG/0.4 ML DISP.SYRIN SUBCUT SCH (09:23)
[2020-03-01] MEDS: METFORMIN HCL 850 MG TABLET PO SCH (09:23)
[2020-03-01] MEDS ORDERED: DOXAZOSIN MESYLATE 1 MG TABLET PO SCH (10:00)
[2020-03-01] MEDS ORDERED: HYDROCHLOROTHIAZIDE 12.5 MG TABLET PO SCH (10:00)
[2020-03-01] MEDS ORDERED: (PENDING PHARMACY ID) (Irbesartan/Hydrochlorothiazide [Irbesartan-Hctz 300-12.5 Mg Tb] 1 E PO SCH (10:00)
[2020-03-01] MEDS ORDERED: PANTOPRAZOLE SODIUM 40 MG TABLET.DR PO SCH (10:00)
[2020-03-01] MEDS ORDERED: LOSARTAN POTASSIUM 50 MG TABLET PO SCH (10:00)
== END 2020-03-01 10:14 | disposition home or self-care (01) | DRG 337 ==
LOC: ER 00:13 → EH 09:22 → 4N 18:47
PROVIDERS: ATTEND Surgery
PROC: 0DN80ZZ Release Small Intestine, Open Approach (ICD-10-PCS; 2020-02-23)
PROC: 0WUF0JZ Supplement Abdominal Wall with Synthetic Substitute, Open Approach (ICD-10-PCS; principal; 2020-02-23 12:30)
DX: K43.0 Incisional hernia with obstruction, without gangrene (principal); K66.0 Peritoneal adhesions (postprocedural) (postinfection); I10 Essential (primary) hypertension; E11.9 Type 2 diabetes mellitus without complications; K21.9 Gastro-esophageal reflux disease without esophagitis; E66.01 Morbid (severe) obesity due to excess calories; Z85.72 Personal history of non-Hodgkin lymphomas; Z90.49 Acquired absence of other specified parts of digestive tract; Z90.710 Acquired absence of both cervix and uterus; Z86.718 Personal history of other venous thrombosis and embolism; Z88.6 Allergy status to analgesic agent; Z88.5 Allergy status to narcotic agent; Z79.84 Long term (current) use of oral hypoglycemic drugs; Z20.828 Contact with and (suspected) exposure to other viral communicable diseases
CPT/HCPCS: 36415; 74018; 74177; 790; 80048; 80053; 81001; 82962; 83605; 83690; 85025; 87635; 93005; 93010; 94799; 96361; 96374; 96376; 99140; 99285; C1758; C1781; C9803; J0131; J0330; J0694; J1100; J1170; J1650; J1885; J2250; J2270; J2370; J2405; J2704; J2710; J3010; J3490; J7030; S0028; S0119

== ENCOUNTER 2020-03-06 09:55 | Observation (INO) | payer MEDICARE ==
--- NOTE | 2020-03-06 10:34 | ER Document Report ---
ED Medical Screen (RME) - General Chief Complaint: Near Syncope Stated Complaint: SYNCOPE,DIZZINESS,HIGH BLOOD PRESSURE Time Seen by Provider: 03/06/20 10:27 Primary Care Provider: BERTO MCCLOUD MD [Primary Care Provider] - Follow up as needed Mode of Arrival: Wheelchair Information source: Patient Notes: 64-year-old female presents to ED for syncopal episode this morning. She states she thinks is the blood pressure. She states she was released Tuesday after she had a surgery for bowel traction and hernia repair. She does have a history of hysterectomy gallbladder removal lymphoma with chemo diabetes high blood pressure. Patient is alert oriented respirations regular nonlabored speaking in full sentences. I have greeted and performed a rapid initial assessment of this patient. A comprehensive ED assessment and evaluation of the patient, analysis of test results and completion of medical decision making process will be conducted by an additional ED providers. TRAVEL OUTSIDE OF THE [place] IN LAST 30 DAYS: No - Related Data Allergies/Adverse Reactions: aspirin Adverse Reaction (Verified 01/02/18 17:23) codeine [Codeine] Adverse Reaction (Verified 01/02/18 17:23) Past Medical History - Social History Chew tobacco use (# tins/day): No Frequency of alcohol use: None Drug Abuse: None - Past Medical History Cardiac Medical History: Reports: Hx Hypertension Endocrine Medical History: Reports: Hx Diabetes Mellitus Type 2. Denies: Hx Diabetes Mellitus Type 1 Renal/ Medical History: Denies: Hx Peritoneal Dialysis Malignancy Medical History: Reports: Hx Lymphoma GI Medical History: Reports: Hx Gastroesophageal Reflux Disease Psychiatric Medical History: Denies: Hx Depression Past Surgical History: Reports: Hx Cholecystectomy, Hx Hysterectomy, Hx Oral Surgery, Hx Vascular Surgery - DVT, Other - Lymphoma resection - Immunizations Hx Diphtheria, Pertussis, Tetanus Vaccination: Yes Physical Exam - Vital signs Vitals: Temp Pulse Resp BP Pulse Ox 98.3 F 73 20 154/88 H 97 03/06/20 10:03/06/20 10:03/06/20 10:03/06/20 10:03/06/20 10:00 Course - Vital Signs Vital signs: Temp Pulse Resp BP Pulse Ox 98.3 F 73 20 154/88 H 97 03/06/20 10:03/06/20 10:00 03/06/20 10:00 03/06/20 10:00 03/06/20 10:00 Doctor's Discharge - Discharge Referrals: BERTO MCCLOUD MD [Primary Care Provider] - Follow up as needed
[2020-03-06 11:25] LABS: APPEARANCE,URINE CLEAR; BILIRUBIN,URINE NEGATIVE (NEGATIVE); COLOR,URINE YELLOW; GLUCOSE, URINE NEGATIVE (NEGATIVE); KETONES,URINE 20 mg/dL (NEGATIVE); LEUKOCYTE ESTERASE,URINE NEGATIVE (NEGATIVE); NITRITE,URINE NEGATIVE (NEGATIVE); PROTEIN,URINE NEGATIVE (NEGATIVE); URINE SPECIFIC GRAVITY 1.014
[2020-03-06 12:09] LABS: ABSOLUTE EOSINOPHILS # (AUTO) 0.2 10^3/uL (0.0-0.6); ABSOLUTE LYMPHOCYTES (AUTO) 1.6 10^3/uL (0.5-4.7); ABSOLUTE MONOCYTES (AUTO) 0.4 10^3/uL (0.1-1.4); ABSOLUTE NEUT (AUTO) 3.4 10^3/uL (1.7-8.2); BASOPHILS % (AUTO) 0.2 % (0-2); EOSINOPHILS % (AUTO) 3.2 % (0-6); HEMATOCRIT 33.1 % (36.0-47.0); HEMOGLOBIN 11.4 g/dL (12.0-15.5); LYMPHOCYTES % (AUTO) 29.2 % (13-45); MEAN CORPUSCULAR HEMOGLOBIN 30.6 pg (27.0-33.4); MEAN CORPUSCULAR HGB CONC 34.3 g/dL (32.0-36.0); MEAN CORPUSCULAR VOLUME 89 fl (80-97); MONOCYTES % (AUTO) 7.3 % (3-13); PLATELET COUNT 260 10^3/uL (150-450); RED BLOOD COUNT 3.72 10^6/uL (3.72-5.28); RED CELL DISTRIBUTION WIDTH 15.5 % (11.5-14.0); SEGMENTED NEUTROPHILS % (AUTO) 60.1 % (42-78); TOTAL CELLS COUNTED % (AUTO) 100 %; WHITE BLOOD COUNT 5.6 10^3/uL (4.0-10.5)
[2020-03-06 12:22] LABS: ALBUMIN 3.6 g/dL (3.5-5.0); ALKALINE PHOSPHATASE 188 U/L (38-126); ANION GAP 7 (5-19); ASPARTATE AMINO TRANSFERASE 92 U/L (14-36); BILIRUBIN,DIRECT 0.8 mg/dL (0.0-0.4); BILIRUBIN,TOTAL 1.4 mg/dL (0.2-1.3); BLOOD UREA NITROGEN 13 mg/dL (7-20); CALCIUM 8.1 mg/dL (8.4-10.2); CARBON DIOXIDE 28 mmol/L (22-30); CHLORIDE 103 mmol/L (98-107); CREATINE KINASE 87 U/L (30-135); GLUCOSE 132 mg/dL (75-110); POTASSIUM 4.8 mmol/L (3.6-5.0)
[2020-03-06 12:33] LABS: CREATINE KINASE MB 0.83 ng/mL (<4.55)
[2020-03-06 12:39] LABS: TROPONIN I < 0.012 ng/mL
[2020-03-06] MEDS ORDERED: NORMAL SALINE 1000 ML 1,000 ML IV ONE (13:53)
[2020-03-06 14:43] LABS: INTERNATIONAL RATION (INR) 1.06; PARTIAL THROMBOPLASTIN TIME 26.9 SEC (23.5-35.8)
--- NOTE | 2020-03-06 14:49 | ER Document Report ---
ED General - General Chief Complaint: Near Syncope Stated Complaint: SYNCOPE,DIZZINESS,HIGH BLOOD PRESSURE Time Seen by Provider: 03/06/20 10:27 Primary Care Provider: BERTO MCCLOUD MD [Primary Care Provider] - Follow up as needed Mode of Arrival: Wheelchair TRAVEL OUTSIDE OF THE [place] IN LAST 30 DAYS: No - HPI Notes: Chief complaint: Presyncope History of present illness: 64-year-old female presents for syncopal episode earlier today and some mild generalized weakness and palpitations. Patient was discharged from the hospital 3 days ago after undergone a repair of a recurrent large abdominal wall hernia resulting in bowel obstruction. She indicates her abdominal wound is healing well she denies any fever or chills. Denies vomiting. She denies chest pain. Denies shortness of breath. Pertinent past history: Patient has past history of treatment for lymphoma at [facility]. She also has a past history of DVT. She is not currently on any anticoagulation. Patient is followed regularly by Dr. Mccloud. Attending surgeon for her recent procedure was Dr. Amaury Devine. Medication currently being taken for pain: Hydrocodone/Acetaminophen [Riparius 10-325 mg Tablet] 1 tab PO Q6HP PRN #20 tablet PRN Reason: For Pain Regular Home Medications: Cyclobenzaprine HCl [Flexeril 10 mg Tablet] 5 mg PO TIDP PRN 02/24/20 Doxazosin Mesylate [Cardura 1 mg Tablet] 1 mg PO DAILY 02/24/20 Irbesartan/Hydrochlorothiazide [Irbesartan-Hctz 300-12.5 mg Tb] 1 each PO DAILY 02/24/20 Metformin HCl [Glucophage 850 mg Tablet] 850 mg PO BID 02/24/20 Naproxen Sodium [Aleve] 220 mg PO DAILYP PRN 02/24/20 Pantoprazole Sodium [Protonix] 40 mg PO DAILY 02/24/20 - Related Data Allergies/Adverse Reactions: aspirin Adverse Reaction (Verified 03/06/20 12:05) codeine [Codeine] Adverse Reaction (Verified 03/06/20 12:04) Past Medical History - General Information source: Patient - Social History Smoking Status: Never Smoker Chew tobacco use (# tins/day): No Frequency of alcohol use: None Drug Abuse: None Family History: Reviewed & Not Pertinent Patient has homicidal ideation: No - Past Medical History Cardiac Medical History: Reports: Hx Hypertension Endocrine Medical History: Reports: Hx Diabetes Mellitus Type 2. Denies: Hx Diabetes Mellitus Type 1 Renal/ Medical History: Denies: Hx Peritoneal Dialysis Malignancy Medical History: Reports: Hx Lymphoma GI Medical History: Reports: Hx Gastroesophageal Reflux Disease Psychiatric Medical History: Denies: Hx Depression Past Surgical History: Reports: Hx Abdominal Surgery, Hx Cholecystectomy, Hx Hysterectomy, Hx Oral Surgery, Hx Vascular Surgery - DVT, Other - Lymphoma resection - Immunizations Hx Diphtheria, Pertussis, Tetanus Vaccination: Yes Review of Systems - Review of Systems Notes: Constitutional: Negative for fever. HENT: Negative for sore throat. Eyes: Negative for visual changes. Cardiovascular: Negative for chest pain. Respiratory: Negative for shortness of breath. Gastrointestinal: Negative for scratch vomiting or diarrhea. Genitourinary: Negative for dysuria. Musculoskeletal: Negative for back pain. Negative for lower extremity pain or swelling. Skin: Negative for rash. Neurological: Negative for headaches, focal weakness or numbness. 10 point ROS negative except as marked above and in HPI. Physical Exam - Vital signs Vitals: Temp Pulse Resp BP Pulse Ox 98.3 F 73 20 154/88 H 97 03/06/20 10:00 03/06/20 10:00 03/06/20 10:00 03/06/20 10:00 03/06/20 10:00 - Notes Notes: GENERAL: Moderately obese female approximately stated age appearing in no acute distress. SKIN: Good turgor no rashes. HEAD: Normocephalic atraumatic. EYES: PERRLA. EOMI. Conjunctivae and sclerae clear. EARS: CANALS AND TMS CLEAR. NOSE: CLEAR. MOUTH: Moist mucosa. Good dentition. No stridor or edema. No drooling. NECK: Supple. No masses or thyromegaly. No adenopathy. Carotids 2+ without bruits. No JVD. BACK: Symmetrical without tenderness. CHEST: Respirations unlabored. Breath sounds clear and symmetrical. HEART: Regular rhythm. No murmur gallop or rub. ABDOMEN: Large midline surgical wound with lashell intact. There is no redness or drainage. Soft without masses, organomegaly or rebound. Bowel sounds normally active. No bruits. GENITALIA: Deferred. EXTREMITIES: No edema. No calf tenderness. Cap refill less than 1.5 seconds. Dorsalis pedis and posterior tibial pulses 3+ and symmetrical. NEUROLOGICAL: GCS 15. Alert and oriented x3. Fluent speech. Cranial nerves II through XII intact. Sensorimotor and cerebellar normal. Normal tone. PSYCHIATRIC: Appropriate affect. Course - Re-evaluation Re-evalutation: 03/06/20 14:54 Patient has an unexplained presyncopal episode occurring approximately 10 days after major surgery and general anesthesia. She is noted to have a new right bundle branch block. At this time she is hemodynamically stable. Her d-dimer is elevated and we note that she has a past history of DVT and she is not currently anticoagulated. CTA of the chest is pending at this time. 03/06/20 16:29 Per radiologist CTA is positive for bilateral subsegmental lower lobe PEs. Oxygenation on room air remains normal and patient is hemodynamically stable. Patient is receiving Lovenox 1 mg/kg subcu. Discussed with her PMD Dr. Mccloud who will admit to [facility]. - Vital Signs Vital signs: Temp Pulse Resp BP Pulse Ox 98.3 F 63 19 136/85 H 95 03/06/20 10:00 03/06/20 12:11 03/06/20 13:01 03/06/20 13:01 03/06/20 13:01 - Laboratory Result Diagrams: 03/06/20 11:35 03/06/20 11:35 Laboratory results interpreted by me: 03/06/20 03/06/20 03/06/20 10:56 11:35 11:35 Hgb 11.4 L Hct 33.1 L RDW 15.5 H D-Dimer Glucose 132 H POC Glucose Calcium 8.1 L Total Bilirubin 1.4 H Direct Bilirubin 0.8 H AST 92 H ALT 39 H Alkaline Phosphatase 188 H Urine Ketones 20 H Urine Urobilinogen 4.0 H 03/06/20 03/06/20 12:00 14:04 Hgb Hct RDW D-Dimer 3.47 H Glucose POC Glucose 136 H Calcium Total Bilirubin Direct Bilirubin AST ALT Alkaline Phosphatase Urine Ketones Urine Urobilinogen - Diagnostic Test Radiology reviewed: Reports reviewed - Per radiologist: Bilateral subsegmental lower lobe PE. - EKG Interpretation by Me Additional EKG results interpreted by me: 03/06/20 14:51 Twelve-lead EKG reviewed by me contemporaneously: 1050 hrs. Indication for study: Presyncope Rhythm: Normal sinus with right bundle branch block Rate: 63 Intervals: Prolonged QRS interval 132 ms QRS axis: -32 degrees changes: Comparison with prior tracing: Interpretation: Comparison with prior EKG from 02/23/2020 shows interval development of a right bundle branch block Discharge - Discharge Clinical Impression: Acute pulmonary embolus Qualifiers: Pulmonary embolism type: other Acute cor pulmonale presence: without acute cor pulmonale Qualified Code(s): I26.99 - Other pulmonary embolism without acute cor pulmonale Condition: Good Disposition: ADMITTED OBSERVATION Admitting Provider: Fuad Unit Admitted: [facility] Referrals: BERTO MCCLOUD MD [Primary Care Provider] - Follow up as needed
--- NOTE | 2020-03-06 15:12 | RADIOLOGY REPORT (SQ) ---
EXAM DESCRIPTION: CHEST SINGLE VIEW IMAGES COMPLETED DATE/TIME: 03/06/2020 3:00 pm REASON FOR STUDY: presyncope COMPARISON: 01/24/2018 EXAM PARAMETERS: NUMBER OF VIEWS: One view. TECHNIQUE: Single frontal radiographic view of the chest acquired. RADIATION DOSE: NA LIMITATIONS: None. FINDINGS: LUNGS AND PLEURA: No opacities, masses or pneumothorax. No pleural effusion. MEDIASTINUM AND HILAR STRUCTURES: No masses. Contour normal. HEART AND VASCULAR STRUCTURES: Heart normal in size. Normal vasculature. BONES: No acute findings. HARDWARE: None in the chest. OTHER: No other significant finding. IMPRESSION: NO ACUTE RADIOGRAPHIC FINDING IN THE CHEST. TECHNICAL DOCUMENTATION: JOB ID: [id number] 2010 [employer]- All Rights Reserved Reading location - IP/workstation name: [email or web address]
--- NOTE | 2020-03-06 16:09 | RADIOLOGY REPORT (SQ) ---
EXAM DESCRIPTION: CTA CHEST IMAGES COMPLETED DATE/TIME: 03/06/2020 3:47 pm REASON FOR STUDY: presyncope, positive d-dimer COMPARISON: 03/06/2020 TECHNIQUE: CT scan of the chest performed using helical scanning technique with dynamic intravenous contrast injection. Images reviewed with lung, soft tissue and bone windows. Reconstructed coronal and sagittal MPR images reviewed. Additional 3 dimensional post-processing performed to develop Maximal Intensity Projection images (WI P). All images stored on PACS. All CT scanners at this facility use dose modulation, iterative reconstruction, and/or weight based d osing when appropriate to reduce radiation dose to as low as reasonably achievable (ALARA). [facility]: Dose Right [facility]: CareDose [facility]: Dose Right [facility]: Teradose 4D [facility]: [employer] CONTRAST TYPE AND DOSE: contrast/concentration: Isovue 350.00 mmol/ml; Total Contrast Delivered: 75. 0 ml; Total Saline Delivered: 40.0 ml Contrast bolus optimized for the pulmonary arteries. Not diagnostic for the aorta. RENAL FUNCTION: BUN 13; creatinine 0.73 RADIATION DOSE: CT Rad equipment meets quality standard of care and radiation dose reduction techniq ues were employed. CTDIvol: 9.9 - 40.2 mGy. DLP: 1389 mGy-cm. . LIMITATIONS: None. FINDINGS: LUNGS AND PLEURA: No masses, infiltrates, or pneumothorax. No pleural effusions or pleura l calcifications. AORTA AND GREAT VESSELS: No aneurysm. Contrast bolus not optimized for the aorta. HEART: No pericardial effusion. No significant coronary artery calcifications. PULMONARY ARTERIES: Acute thrombi are seen within the bilateral lower lobe segmental branches. No ev idence of right heart strain. HILAR AND MEDIASTINAL STRUCTURES: No identified masses or abnormal nodes. HARDWARE: None in the chest. UPPER ABDOMEN: Limited exam. Small hiatal hernia. Cholecystectomy clips. Likely nonobstructive nep hrolithiasis. THYROID AND OTHER SOFT TISSUES: No masses. No adenopathy. BONES: No acute or significant finding. 3D MIPS: Confirm above findings. OTHER: No other significant finding. IMPRESSION: Acute thrombi are seen within the bilateral lower lobe segmental branches. No right hea rt strain. COMMENT: Quality ID # [id number]: Final reports with documentation of one or more dose reduction techniques (e.g., Automated exposure control, adjustment of the mA and/or kV according to patient size, use of iterative reconstruction technique) TECHNICAL DOCUMENTATION: JOB ID: [id number] 2010 [employer]- All Rights Reserved Reading location - IP/workstation name: [email or web address]
[2020-03-06] MEDS ORDERED: ENOXAPARIN SODIUM INJ 150 MG/1 ML DISP.SYRIN SUBCUT ONE (16:26)
[2020-03-06] MEDS ORDERED: GLUCAGON,HUMAN RECOMB 1 MG INJ IM PRN (18:03)
[2020-03-06] MEDS ORDERED: NORMAL SALINE 1000 ML 1,000 ML IV PRN (18:03)
[2020-03-06] MEDS ORDERED: DEXTROSE 40% GEL 15 GM TUBE PO PRN ×2 (18:03)
[2020-03-06] MEDS ORDERED: DEXTROSE 50%-WATER 25 GM/50 ML DISP.SYRIN IV PRN ×2 (18:03)
--- NOTE | 2020-03-06 18:07 | EKG REPORT ---
SEVERITY:- ABNORMAL ECG - SINUS RHYTHM RBBB AND LAFB LVH WITH SECONDARY REPOLARIZATION ABNORMALITY T INVERSION ANTERIOR PRECORDIAL LEADS, CONSIDER ISCHEMIA, NEW SINCE 02/23/20 : Confirmed by: Cristiano Hutchinson MD 06-Mar-2020 18:06:56
[2020-03-06] MEDS ORDERED: CYCLOBENZAPRINE HCL 10 MG TABLET PO PRN (18:08)
--- NOTE | 2020-03-06 18:47 | PDOC H&P ---
History of Present Illness Admission Date/PCP: 03/06/20 16:38 BERTO ROGERS Patient complains of: Dizziness, shortness of breath History of Present Illness: MARCELA CHOE is a 64 year old female patient known to my practice who presented to the ED with sudden onset shortness of breath and dizzy feeling early this morning. She denied any associated palpitation, nausea, or vomiting. She denied any headache but reported feeling fussy in the head as if it was going to blow up but no loss of consciousness. She denied any seizure activity or passing out. She was recently discharged from this facility on 03/01/2020 following emergent repair of ventral hernia with small bowel obstruction. Patient admitted to less active engagement since discharge but she has been trying to move around better and making her own meals. She denied any recent long distance travel since discharge. There is history of left leg DVT 2018. Her morbidities include Lymphoma. Her initial ED evaluation revealed elevated D-dimmer with normal coagulation profile and CTA chest/abdomen revealed bilateral lower lobe acute pulmonary embolism. Her electrocardiogram suggested RBBB and LAFB with anterior precordial leads T wave inversion concerning for ischemia. She was advised hospitalization to observation bed for further evaluation and management. Past Medical History Cardiac Medical History: Reports: Hypertension Endocrine Medical History: Reports: Diabetes Mellitus Type 2 Denies: Diabetes Mellitus Type 1 Malignancy Medical History: Reports: Lymphoma GI Medical History: Reports: Gastroesophageal Reflux Disease Psychiatric Medical History: Denies: Depression Past Surgical History Past Surgical History: Reports: Cholecystectomy, Hysterectomy, Vascular Surgery - DVT, Other - Lymphoma resection Social History Smoking Status: Never Smoker Electronic Cigarette use?: No Frequency of Alcohol Use: None Hx Recreational Drug Use: No Hx Prescription Drug Abuse: No - Advance Directive Resuscitation Status: Full Code Family History Family History: Reviewed & Not Pertinent Parental Family History Reviewed: Yes Children Family History Reviewed: Yes Sibling(s) Family History Reviewed.: Yes Medication/Allergy Home Medications: Cyclobenzaprine HCl [Flexeril 10 mg Tablet] 5 mg PO TIDP PRN 02/24/20 Doxazosin Mesylate [Cardura 1 mg Tablet] 1 mg PO DAILY 02/24/20 Irbesartan/Hydrochlorothiazide [Irbesartan-Hctz 300-12.5 mg Tb] 1 tab PO DAILY 02/24/20 Metformin HCl [Glucophage 850 mg Tablet] 850 mg PO BID 02/24/20 Naproxen Sodium [Aleve] 220 mg PO DAILYP PRN 02/24/20 Pantoprazole Sodium [Protonix] 40 mg PO DAILY 02/24/20 Hydrocodone/Acetaminophen [Arena 10-325 mg Tablet] 1 tab PO Q6HP PRN #20 tablet 03/01/20 Allergies/Adverse Reactions: aspirin Adverse Reaction (Verified 03/06/20 12:05) codeine [Codeine] Adverse Reaction (Verified 03/06/20 12:04) Review of Systems Constitutional: PRESENT: fatigue, weakness. ABSENT: chills, fever(s), headache(s) Eyes: ABSENT: visual disturbances Ears: ABSENT: hearing changes Cardiovascular: ABSENT: chest pain, dyspnea on exertion, edema, orthropnea, palpitations Respiratory: PRESENT: dyspnea. ABSENT: cough, hemoptysis Gastrointestinal: ABSENT: abdominal pain, constipation, diarrhea, hematemesis, hematochezia, nausea, vomiting Genitourinary: ABSENT: dysuria, hematuria Musculoskeletal: ABSENT: joint swelling Integumentary: ABSENT: rash, wounds Neurological: PRESENT: dizziness. ABSENT: abnormal gait, abnormal speech, confusion, focal weakness, syncope Psychiatric: ABSENT: anxiety, depression, homidical ideation, suicidal ideation Endocrine: ABSENT: cold intolerance, heat intolerance, menstrual abnormalities, polydipsia, polyuria Hematologic/Lymphatic: ABSENT: easy bleeding, easy bruising, lymphadenopathy Allergic/Immunologic: ABSENT: seasonal rhinorrhea Physical Exam Vital Signs: Temp Pulse Resp BP Pulse Ox 98.4 F 63 16 142/70 H 95 03/06/20 17:21 03/06/20 12:11 03/06/20 17:00 03/06/20 16:35 03/06/20 17:00 Intake & Output 03/05/20 03/06/20 03/07/20 06:59 06:59 06:59 Weight 134 kg General appearance: PRESENT: no acute distress, morbidly obese Head exam: PRESENT: atraumatic, normocephalic Eye exam: PRESENT: conjunctiva pink, EOMI, PERRLA. ABSENT: scleral icterus Ear exam: PRESENT: normal external ear exam Mouth exam: PRESENT: moist, tongue midline Neck exam: PRESENT: full ROM. ABSENT: carotid bruit, JVD, lymphadenopathy, thyromegaly Respiratory exam: PRESENT: chest wall tenderness, decreased breath sounds - at lung bases Cardiovascular exam: PRESENT: RRR, +S1, +S2. ABSENT: diastolic murmur, rubs, systolic murmur Pulses: PRESENT: normal dorsalis pedis pul, +2 pedal pulses bilateral Vascular exam: PRESENT: normal capillary refill. ABSENT: pallor GI/Abdominal exam: PRESENT: normal bowel sounds, soft, tenderness - around recent siurgical wound site with in situ lashell. ABSENT: distended, guarding, mass, organolmegaly, rebound Rectal exam: PRESENT: deferred Extremities exam: PRESENT: pedal edema - bilateral right >> left Neurological exam: PRESENT: alert, awake, oriented to person, oriented to place, oriented to time, oriented to situation, CN II-XII grossly intact. ABSENT: motor sensory deficit Psychiatric exam: PRESENT: appropriate affect, normal mood. ABSENT: homicidal ideation, suicidal ideation Skin exam: PRESENT: dry, intact, warm. ABSENT: cyanosis, rash Results Laboratory Results: 03/06/20 11:35 03/06/20 11:35 03/06/20 03/06/20 03/06/20 10:56 11:35 11:35 WBC 5.6 RBC 3.72 Hgb 11.4 L Hct 33.1 L MCV 89 MCH 30.6 MCHC 34.3 RDW 15.5 H Plt Count 260 Seg Neutrophils % 60.1 Sodium 137.8 Potassium 4.8 Chloride 103 Carbon Dioxide 28 Anion Gap 7 BUN 13 Creatinine 0.73 Est GFR ( Amer) > 60 Glucose 132 H Calcium 8.1 L Total Bilirubin 1.4 H AST 92 H Alkaline Phosphatase 188 H Total Protein 7.0 Albumin 3.6 Urine Color YELLOW Urine Appearance CLEAR Urine pH 5.0 Ur Specific Wheeler 1.014 Urine Protein NEGATIVE Urine Glucose (UA) NEGATIVE Urine Ketones 20 H Urine Blood NEGATIVE Urine Nitrite NEGATIVE Ur Leukocyte Esterase NEGATIVE Urine WBC (Auto) 2 Urine RBC (Auto) 1 03/06/20 03/06/20 11:35 11:35 Creatine Kinase 87 CK-MB (CK-2) 0.83 Troponin I < 0.012 Impressions: Chest X-Ray 03/06/20 14:38 IMPRESSION: NO ACUTE RADIOGRAPHIC FINDING IN THE CHEST. Chest/Abdomen CTA 03/06/20 15:07 IMPRESSION: Acute thrombi are seen within the bilateral lower lobe segmental branches. No right heart strain. Assessment & Plan - Diagnosis (1) Acute pulmonary embolus Qualifiers: Pulmonary embolism type: other Acute cor pulmonale presence: without acute cor pulmonale Qualified Code(s): I26.99 - Other pulmonary embolism without acute cor pulmonale Is this a current diagnosis for this admission?: Yes Plan: See admitting attending physician orders for details about care plan. (2) History of DVT of lower extremity Is this a current diagnosis for this admission?: Yes Plan: See admitting attending physician orders for details about care plan. (3) History of lymphoma Is this a current diagnosis for this admission?: Yes Plan: See admitting attending physician orders for details about care plan. (4) Type 2 diabetes mellitus with morbid obesity Is this a current diagnosis for this admission?: Yes Plan: See admitting attending physician orders for details about care plan. (5) Essential (primary) hypertension Is this a current diagnosis for this admission?: Yes Plan: See admitting attending physician orders for details about care plan. (6) GERD (gastroesophageal reflux disease) Qualifiers: Esophagitis presence: esophagitis presence not specified Qualified Code(s): K21.9 - Gastro-esophageal reflux disease without esophagitis Is this a current diagnosis for this admission?: Yes Plan: See admitting attending physician orders for details about care plan. (7) Morbid obesity with BMI of 45.0-49.9, adult Is this a current diagnosis for this admission?: Yes Plan: See admitting attending physician orders for details about care plan. - Time Time Spent: 50 to 70 Minutes Medications reviewed and adjusted accordingly: Yes Anticipated Discharge Disposition: Home, Self Care Anticipated Discharge Timeframe: within 48 hours - Inpatient Certification Based on my medical assessment, after consideration of the patient's comorbidities, presenting symptoms, or acuity I expect that the services needed warrant INPATIENT care.: Yes I certify that my determination is in accordance with my understanding of Medicare's requirements for reasonable and necessary INPATIENT services [42 CFR 412.3e].: Yes Medical Necessity: Significant Comorbidiites Make Outpatient Treatment Too Risky, Need Close Monitoring Due to Risk of Patient Decompensation, Need For IV Fluids, Need For Continuous Telemetry Monitoring, Risk of Complication if Not Cared For in Hospital, Risk of Diagnosis Which Will Require Inpatient Eval/Care/Monitoring Post Hospital Care: D/C Medical Case Worker Documentation - Plan Summary Plan Summary: See admitting attending physician orders for details about care plan.
[2020-03-06] MEDS: INSULIN LISPRO 100 UNIT/ML 3 ML VIAL SUBCUT SCH (22:15)
[2020-03-06] MEDS: ENOXAPARIN SODIUM INJ 150 MG/1 ML DISP.SYRIN SUBCUT SCH (22:31)
[2020-03-07] MEDS: HYDROCODONE/ACETAMINOPHEN 10-325 MG TABLET PO PRN ×3 (00:53→23:41)
[2020-03-07] MEDS: PANTOPRAZOLE SODIUM 40 MG TABLET.DR PO SCH (05:22)
[2020-03-07 06:43] LABS: ABSOLUTE BASOPHILS # (AUTO) 0.1 10^3/uL (0.0-0.2); ABSOLUTE EOSINOPHILS # (AUTO) 0.3 10^3/uL (0.0-0.6); ABSOLUTE LYMPHOCYTES (AUTO) 2.6 10^3/uL (0.5-4.7); ABSOLUTE MONOCYTES (AUTO) 0.5 10^3/uL (0.1-1.4); ABSOLUTE NEUT (AUTO) 2.9 10^3/uL (1.7-8.2); BASOPHILS % (AUTO) 1.4 % (0-2); HEMATOCRIT 31.7 % (36.0-47.0); HEMOGLOBIN 10.9 g/dL (12.0-15.5); LYMPHOCYTES % (AUTO) 40.9 % (13-45); MEAN CORPUSCULAR HEMOGLOBIN 30.6 pg (27.0-33.4); MEAN CORPUSCULAR HGB CONC 34.5 g/dL (32.0-36.0); MEAN CORPUSCULAR VOLUME 89 fl (80-97); MONOCYTES % (AUTO) 7.6 % (3-13); PLATELET COUNT 242 10^3/uL (150-450); RED BLOOD COUNT 3.58 10^6/uL (3.72-5.28); RED CELL DISTRIBUTION WIDTH 15.7 % (11.5-14.0); SEGMENTED NEUTROPHILS % (AUTO) 46.1 % (42-78); TOTAL CELLS COUNTED % (AUTO) 100 %; WHITE BLOOD COUNT 6.3 10^3/uL (4.0-10.5)
[2020-03-07 07:05] LABS: ALBUMIN 3.2 g/dL (3.5-5.0); ALKALINE PHOSPHATASE 163 U/L (38-126); ANION GAP 9 (5-19); ASPARTATE AMINO TRANSFERASE 34 U/L (14-36); BILIRUBIN,DIRECT 0.4 mg/dL (0.0-0.4); BILIRUBIN,TOTAL 0.7 mg/dL (0.2-1.3); BLOOD UREA NITROGEN 13 mg/dL (7-20); CALCIUM 8.2 mg/dL (8.4-10.2); CARBON DIOXIDE 24 mmol/L (22-30); CHLORIDE 106 mmol/L (98-107); CHOLESTEROL 147.12 mg/dL (0-200); GLUCOSE 104 mg/dL (75-110); TOTAL PROTEIN 6.1 g/dL (6.3-8.2); TRIGLYCERIDES 88 mg/dL (<150)
[2020-03-07 07:16] LABS: DIRECT LDL 112 mg/dL (<100)
[2020-03-07 07:27] LABS: POTASSIUM 3.7 mmol/L (3.6-5.0)
[2020-03-07] MEDS ORDERED: INFLUENZA QUAD (6MOS+) 2020-21 VAC 0.5 ML SYR IM ONE (08:00)
--- NOTE | 2020-03-07 09:06 | RADIOLOGY REPORT (SQ) ---
EXAM DESCRIPTION: VENOUS BILATERAL LOWER IMAGES COMPLETED DATE/TIME: 03/06/2020 9:07 pm REASON FOR STUDY: Acute Bilateral PE, hx left DVT I26.99 OTHER PULMONARY EMBOLISM WITHOUT ACUTE COR PULMONALE E11.65 TYPE 2 DIABETES MELLITUS WITH HYPERGLYCEMIA I10 ESSENTIAL (PRIMARY) HYPERTENSION COMPARISON: 10/31/2012 TECHNIQUE: Dynamic and static muniz scale and color images acquired of both lower extremity venous sy stems. Selected spectral images acquired with additional compression and augmentation maneuvers. Imag es stored on PACS. LIMITATIONS: Limited exam due to body habitus and swelling. FINDINGS: RIGHT LEG COMMON FEMORAL AND FEMORAL: Normal phasicity, compression and augmentation. No visualized echogenic m aterial on muniz scale. No defects on color images. POPLITEAL: Normal compression and augmentation. No visualized echogenic material on muniz scale. No de fects on color images. CALF VESSELS: Normal compression and augmentation. No visualized echogenic material on muniz scale. No defects on color image. GSV AND SSV: Normal compression. No visualized echogenic material on muniz scale. No defects on color images. ANY DEEP VENOUS INSUFFICIENCY: Not evaluated. ANY EVIDENCE OF POPLITEAL CYST: No. OTHER: No other significant finding. LEFT LEG COMMON FEMORAL AND FEMORAL: Normal phasicity, compression and augmentation. Minimal nonocclusive amber ear luminal defect noted within the femoral vein. No defects on color images. POPLITEAL: Normal compression and augmentation. No visualized echogenic material on muniz scale. No de fects on color images. CALF VESSELS: Normal compression and augmentation. No visualized echogenic material on muniz scale. No defects on color images. GSV AND SSV: Normal compression. No visualized echogenic material on muniz scale. No defects on color images. ANY DEEP VENOUS INSUFFICIENCY: Not evaluated. ANY EVIDENCE POPLITEAL CYST: No. OTHER: No other significant finding. IMPRESSION: 1. Minimal linear echogenic material within the left femoral vein on grayscale, possibly sequelae from prior DVT or trace residual clot. No other significant lower extremity DVT as visuali zed. 2. No evidence of DVT or SVT within the right lower extremity. TECHNICAL DOCUMENTATION: JOB ID: [id number] 2010 [employer]- All Rights Reserved Reading location - IP/workstation name: [email or web address]
[2020-03-07] MEDS: INSULIN LISPRO 100 UNIT/ML 3 ML VIAL SUBCUT SCH ×4 (09:51→21:27)
[2020-03-07] MEDS: DOXAZOSIN MESYLATE 1 MG TABLET PO SCH (09:54)
[2020-03-07] MEDS: LOSARTAN POTASSIUM 50 MG TABLET PO SCH (09:54)
[2020-03-07] MEDS: HYDROCHLOROTHIAZIDE 12.5 MG TABLET PO SCH (09:54)
[2020-03-07] MEDS: ENOXAPARIN SODIUM INJ 150 MG/1 ML DISP.SYRIN SUBCUT SCH (09:55)
[2020-03-07] MEDS ORDERED: (PENDING PHARMACY ID) (Irbesartan/Hydrochlorothiazide [Irbesartan-Hctz 300-12.5 Mg Tb] 1 T PO SCH (10:00)
[2020-03-07] MEDS ORDERED: METFORMIN HCL 850 MG TABLET PO SCH (10:00)
--- NOTE | 2020-03-07 15:00 | PDOC PROGRESS REPORT ---
Subjective Progress Note for:: 03/07/20 Subjective:: Patient reported episode of blood in her stool with bowel movement on tissue paper. There is history of hemorrhoid. She denied ant dizziness or chest pain. No nausea or vomiting. Still some discomfort at site of recent surgery. No fever or chills. Reason For Visit: ACUTE BILATERAL PULMONARY EMBOLISM;HX LEFT LEG DVT Physical Exam Vital Signs: Temp Pulse Resp BP Pulse Ox 98.6 F 74 15 123/58 L 99 03/07/20 10:00 03/07/20 07:51 03/07/20 07:51 03/07/20 07:51 03/07/20 07:51 Intake & Output 03/06/20 03/07/20 03/08/20 06:59 06:59 06:59 Intake Total 1500 Balance 1500 Weight 134.3 kg General appearance: PRESENT: no acute distress, morbidly obese Head exam: PRESENT: atraumatic, normocephalic Eye exam: PRESENT: conjunctiva pink, EOMI, PERRLA. ABSENT: scleral icterus Ear exam: PRESENT: normal external ear exam Mouth exam: PRESENT: moist, tongue midline Neck exam: PRESENT: full ROM. ABSENT: carotid bruit, JVD, lymphadenopathy, thyromegaly Respiratory exam: PRESENT: clear to auscultation silvia Cardiovascular exam: PRESENT: RRR, +S1, +S2. ABSENT: diastolic murmur, rubs, systolic murmur Vascular exam: PRESENT: normal capillary refill. ABSENT: pallor GI/Abdominal exam: PRESENT: normal bowel sounds, soft, tenderness - more related to palpation around her surgical site.. ABSENT: distended, guarding, mass, organolmegaly, rebound Rectal exam: PRESENT: deferred Extremities exam: ABSENT: pedal edema Neurological exam: PRESENT: alert, awake, oriented to person, oriented to place, oriented to time, oriented to situation, CN II-XII grossly intact. ABSENT: motor sensory deficit Psychiatric exam: PRESENT: appropriate affect, normal mood. ABSENT: homicidal ideation, suicidal ideation Skin exam: PRESENT: dry, intact, warm. ABSENT: cyanosis, rash Results Laboratory Results: 03/07/20 05:48 03/07/20 05:48 03/07/20 03/07/20 05:48 05:48 WBC 6.3 RBC 3.58 L Hgb 10.9 L Hct 31.7 L MCV 89 MCH 30.6 MCHC 34.5 RDW 15.7 H Plt Count 242 Seg Neutrophils % 46.1 Sodium 139.4 Potassium 3.7 D Chloride 106 Carbon Dioxide 24 Anion Gap 9 BUN 13 Creatinine 0.78 Est GFR ( Amer) > 60 Glucose 104 Calcium 8.2 L Total Bilirubin 0.7 AST 34 Alkaline Phosphatase 163 H Total Protein 6.1 L Albumin 3.2 L Triglycerides 88 Cholesterol 147.12 LDL Cholesterol Direct 112 H VLDL Cholesterol 18.0 HDL Cholesterol 24 L 03/06/20 03/06/20 03/06/20 11:35 11:35 14:04 Creatine Kinase 87 CK-MB (CK-2) 0.83 Troponin I < 0.012 < 0.012 Impressions: Venous Doppler Study 03/06/20 00:00 IMPRESSION: 1. Minimal linear echogenic material within the left femoral vein on grayscale, possibly sequelae from prior DVT or trace residual clot. No other significant lower extremity DVT as visualized. 2. No evidence of DVT or SVT within the right lower extremity. Chest X-Ray 03/06/20 14:38 IMPRESSION: NO ACUTE RADIOGRAPHIC FINDING IN THE CHEST. Chest/Abdomen CTA 03/06/20 15:07 IMPRESSION: Acute thrombi are seen within the bilateral lower lobe segmental branches. No right heart strain. Assessment & Plan - Diagnosis (1) Acute pulmonary embolus Qualifiers: Pulmonary embolism type: other Acute cor pulmonale presence: without acute cor pulmonale Qualified Code(s): I26.99 - Other pulmonary embolism without acute cor pulmonale Is this a current diagnosis for this admission?: Yes Plan: D/C Lovenox. Start on Eliquis 5 mg po bid. (2) History of DVT of lower extremity Is this a current diagnosis for this admission?: Yes (3) History of lymphoma Is this a current diagnosis for this admission?: Yes (4) Type 2 diabetes mellitus with morbid obesity Is this a current diagnosis for this admission?: Yes (5) Essential (primary) hypertension Is this a current diagnosis for this admission?: Yes (6) GERD (gastroesophageal reflux disease) Qualifiers: Esophagitis presence: esophagitis presence not specified Qualified Code(s): K21.9 - Gastro-esophageal reflux disease without esophagitis Is this a current diagnosis for this admission?: Yes (7) Morbid obesity with BMI of 45.0-49.9, adult Is this a current diagnosis for this admission?: Yes (8) Bleeding hemorrhoid Is this a current diagnosis for this admission?: Yes Plan: Patient was instructed to monitor for any significant bleeding. Start on Colace 100 mg po qhs. Obtain CBC in am. - Time Time Spent with patient: 25-34 minutes Level of Care: IMCU Anticipated discharge: Home Anticipated DC Timeframe: within 24 hours - Inpatient Certification Based on my medical assessment, after consideration of the patient's comorbidities, presenting symptoms, or acuity I expect that the services needed warrant INPATIENT care.: Yes I certify that my determination is in accordance with my understanding of Medicare's requirements for reasonable and necessary INPATIENT services [42 CFR 412.3e].: Yes Medical Necessity: Significant Comorbidiites Make Outpatient Treatment Too Risky, Need Close Monitoring Due to Risk of Patient Decompensation, Need For IV Fluids, Need For Continuous Telemetry Monitoring, Risk of Complication if Not Cared For in Hospital, Risk of Diagnosis Which Will Require Inpatient Eval/Care/Monitoring Post Hospital Care: D/C [facility] Documentation - Plan Summary Plan Summary: See attending physician orders for details about care plan.
[2020-03-07] MEDS: APIXABAN 5 MG TABLET PO SCH (17:37)
[2020-03-07] MEDS ORDERED: DOCUSATE SODIUM 100 MG CAPSULE PO SCH (22:00)
[2020-03-08] MEDS: PANTOPRAZOLE SODIUM 40 MG TABLET.DR PO SCH (05:19)
[2020-03-08] MEDS: INSULIN LISPRO 100 UNIT/ML 3 ML VIAL SUBCUT SCH ×2 (09:00→12:15)
[2020-03-08] MEDS: APIXABAN 5 MG TABLET PO SCH (09:02)
[2020-03-08] MEDS: DOXAZOSIN MESYLATE 1 MG TABLET PO SCH (09:02)
[2020-03-08] MEDS: HYDROCHLOROTHIAZIDE 12.5 MG TABLET PO SCH (09:02)
[2020-03-08] MEDS: LOSARTAN POTASSIUM 50 MG TABLET PO SCH (09:03)
[2020-03-08 09:28] VITALS: BP 143/76
--- NOTE | 2020-03-08 10:19 | PDOC DISCHARGE SUMMARY ---
Impression - Admit/DC Date/PCP Admission Date/Primary Care Provider: 03/06/20 16:38 BERTO MCCLOUD Discharge Date: 03/08/20 - Discharge Diagnosis (1) Acute pulmonary embolus Is this a current diagnosis for this admission?: Yes (2) History of DVT of lower extremity Is this a current diagnosis for this admission?: Yes (3) History of lymphoma Is this a current diagnosis for this admission?: Yes (4) Type 2 diabetes mellitus with morbid obesity Is this a current diagnosis for this admission?: Yes (5) Essential (primary) hypertension Is this a current diagnosis for this admission?: Yes (6) GERD (gastroesophageal reflux disease) Is this a current diagnosis for this admission?: Yes (7) Morbid obesity with BMI of 45.0-49.9, adult Is this a current diagnosis for this admission?: Yes (8) Bleeding hemorrhoid Is this a current diagnosis for this admission?: Yes - Assessment Summary: Patient presented with sudden onset shortness of breath, recent hospitalization, history of lymphoma and elevated D-dimmer. She was admitted to observation bed as a case of bilateral lower lobe segmental pulmonary embolism. She was managed with subcutaneous Lovenox and eventually transition to oral Eliquis. There was incidental episode of rectal bleed with bowel movement without recurrence. She will continue on all her preadmission medications except Naproxen. She will be discharged on Colace and Eliquis as additional discharge medication. She will follow up in the office as instructed upon discharge. - Additional Information Resuscitation Status: Full Code Discharge Diet: Cardiac, Diabetic Discharge Activity: Activity As Tolerated Referrals: BERTO MCCLOUD MD [Primary Care Provider] - 03/18/20 9:00 am Prescriptions: Docusate Sodium [Colace 100 mg Capsule] 100 mg PO QHS #30 capsule Apixaban [Eliquis 5 mg Tablet] 5 mg PO BID #60 tablet Home Medications: Cyclobenzaprine HCl [Flexeril 10 mg Tablet] 5 mg PO TIDP PRN 02/24/20 Doxazosin Mesylate [Cardura 1 mg Tablet] 1 mg PO DAILY 02/24/20 Irbesartan/Hydrochlorothiazide [Irbesartan-Hctz 300-12.5 mg Tb] 1 tab PO DAILY 02/24/20 Metformin HCl [Glucophage 850 mg Tablet] 850 mg PO BID 02/24/20 Pantoprazole Sodium [Protonix] 40 mg PO DAILY 02/24/20 Hydrocodone/Acetaminophen [[place] 10-325 mg Tablet] 1 tab PO Q6HP PRN #20 tablet 03/01/20 Apixaban [Eliquis 5 mg Tablet] 5 mg PO BID #60 tablet 03/08/20 Docusate Sodium [Colace 100 mg Capsule] 100 mg PO QHS #30 capsule 03/08/20 History of Present Illiness History of Present Illness: MARCELA CHOE is a 64 year old female patient known to my practice who presented to the ED with sudden onset shortness of breath and dizzy feeling early this morning. She denied any associated palpitation, nausea, or vomiting. She denied any headache but reported feeling fussy in the head as if it was going to blow up but no loss of consciousness. She denied any seizure activity or passing out. She was recently discharged from this facility on 03/01/2020 following emergent repair of ventral hernia with small bowel obstruction. Patient admitted to less active engagement since discharge but she has been trying to move around better and making her own meals. She denied any recent long distance travel since discharge. There is history of left leg DVT 2017. Her morbidities include Lymphoma. Her initial ED evaluation revealed elevated D-dimmer with normal coagulation profile and CTA chest/abdomen revealed bilateral lower lobe acute pulmonary embolism. Her electrocardiogram suggested RBBB and LAFB with anterior precordial leads T wave inversion concerning for ischemia. She was advised hospitalization to observation bed for further evaluation and management. Hospital Course Hospital Course: Patient presented with sudden onset shortness of breath, recent hospitalization, history of lymphoma and elevated D-dimmer. She was admitted to observation bed as a case of bilateral lower lobe segmental pulmonary embolism. She was managed with subcutaneous Lovenox and eventually transition to oral Eliquis. There was incidental episode of rectal bleed with bowel movement without recurrence. She will continue on all her preadmission medications except Naproxen. She will be discharged on Colace and Eliquis as additional discharge medication. She will follow up in the office as instructed upon discharge. Physical Exam Vital Signs: Temp Pulse Resp BP Pulse Ox 98.8 F 71 16 143/76 H 97 03/08/20 09:54 03/08/20 07:46 03/08/20 07:46 03/08/20 07:46 03/08/20 07:46 Intake & Output 03/07/20 03/08/20 03/09/20 06:59 06:59 06:59 Intake Total 1500 1459 Balance 1500 1459 Weight 134.3 kg General appearance: PRESENT: no acute distress, morbidly obese Head exam: PRESENT: atraumatic, normocephalic Eye exam: PRESENT: conjunctiva pink. ABSENT: pallor, scleral icterus Ear exam: PRESENT: normal external ear exam Mouth exam: PRESENT: moist, tongue midline Neck exam: PRESENT: full ROM. ABSENT: carotid bruit, JVD, lymphadenopathy, thyromegaly Respiratory exam: PRESENT: clear to auscultation silvia Cardiovascular exam: PRESENT: RRR, +S1, +S2. ABSENT: diastolic murmur, rubs, systolic murmur GI/Abdominal exam: PRESENT: normal bowel sounds, soft, tenderness - more related to palpation around her surgical site.. ABSENT: distended, guarding, mass, organomegaly, rebound Extremities exam: ABSENT: pedal edema Neurological exam: PRESENT: alert, awake, oriented to person, oriented to place, oriented to time, oriented to situation, CN II-XII grossly intact. ABSENT: motor sensory deficit Psychiatric exam: PRESENT: appropriate affect, normal mood. ABSENT: homicidal ideation, suicidal ideation Skin exam: PRESENT: dry, intact, warm. ABSENT: cyanosis, rash Results Laboratory Results: WBC 6.3 10^3/uL (4.0-10.5) 03/07/20 05:48 RBC 3.58 10^6/uL (3.72-5.28) L 03/07/20 05:48 Hgb 10.9 g/dL (12.0-15.5) L 03/07/20 05:48 Hct 31.7 % (36.0-47.0) L 03/07/20 05:48 MCV 89 fl (80-97) 03/07/20 05:48 MCH 30.6 pg (27.0-33.4) 03/07/20 05:48 MCHC 34.5 g/dL (32.0-36.0) 03/07/20 05:48 RDW 15.7 % (11.5-14.0) H 03/07/20 05:48 Plt Count 242 10^3/uL (150-450) 03/07/20 05:48 Lymph % (Auto) 40.9 % (13-45) 03/07/20 05:48 [place] % (Auto) 7.6 % (3-13) 03/07/20 05:48 Eos % (Auto) 4.0 % (0-6) 03/07/20 05:48 Baso % (Auto) 1.4 % (0-2) 03/07/20 05:48 Absolute Neuts (auto) 2.9 10^3/uL (1.7-8.2) 03/07/20 05:48 Absolute Lymphs (auto) 2.6 10^3/uL (0.5-4.7) 03/07/20 05:48 Absolute Monos (auto) 0.5 10^3/uL (0.1-1.4) 03/07/20 05:48 Absolute Eos (auto) 0.3 10^3/uL (0.0-0.6) 03/07/20 05:48 Absolute Basos (auto) 0.1 10^3/uL (0.0-0.2) 03/07/20 05:48 Seg Neutrophils % 46.1 % (42-78) 03/07/20 05:48 PT 14.0 SEC (11.4-15.4) 03/06/20 14:04 INR 1.06 03/06/20 14:04 APTT 26.9 SEC (23.5-35.8) 03/06/20 14:04 D-Dimer 3.47 ug/mL (0.00-0.50) H 03/06/20 14:04 Sodium 139.4 mmol/L (137-145) 03/07/20 05:48 Potassium 3.7 mmol/L (3.6-5.0) D 03/07/20 05:48 Chloride 106 mmol/L (98-107) 03/07/20 05:48 Carbon Dioxide 24 mmol/L (22-30) 03/07/20 05:48 Anion Gap 9 (5-19) 03/07/20 05:48 BUN 13 mg/dL (7-20) 03/07/20 05:48 Creatinine 0.78 mg/dL (0.52-1.25) 03/07/20 05:48 Est GFR ( Amer) > 60 (>60) 03/07/20 05:48 Est GFR (MDRD) Non-Af > 60 (>60) 03/07/20 05:48 Glucose 104 mg/dL (75-110) 03/07/20 05:48 POC Glucose 114 mg/dL (70-110) H 03/08/20 07:45 Hemoglobin A1c % 5.9 % (4.7-6.0) 03/07/20 05:48 Calcium 8.2 mg/dL (8.4-10.2) L 03/07/20 05:48 Total Bilirubin 0.7 mg/dL (0.2-1.3) 03/07/20 05:48 Direct Bilirubin 0.4 mg/dL (0.0-0.4) 03/07/20 05:48 Neonat Total Bilirubin Not Reportable 03/07/20 05:48 Neonat Direct Bilirubin Not Reportable 03/07/20 05:48 Neonat Indirect Bili Not Reportable 03/07/20 05:48 AST 34 U/L (14-36) 03/07/20 05:48 ALT 28 U/L (<35) 03/07/20 05:48 Alkaline Phosphatase 163 U/L (38-126) H 03/07/20 05:48 Creatine Kinase 87 U/L (30-135) 03/06/20 11:35 CK-MB (CK-2) 0.83 ng/mL (<4.55) 03/06/20 11:35 Troponin I < 0.012 ng/mL 03/06/20 14:04 Total Protein 6.1 g/dL (6.3-8.2) L 03/07/20 05:48 Albumin 3.2 g/dL (3.5-5.0) L 03/07/20 05:48 Triglycerides 88 mg/dL (<150) 03/07/20 05:48 Cholesterol 147.12 mg/dL (0-200) 03/07/20 05:48 LDL Cholesterol Direct 112 mg/dL (<100) H 03/07/20 05:48 VLDL Cholesterol 18.0 mg/dL (10-31) 03/07/20 05:48 HDL Cholesterol 24 mg/dL (>40) L 03/07/20 05:48 Urine Color YELLOW 03/06/20 10:56 Urine Appearance CLEAR 03/06/20 10:56 Urine pH 5.0 (5.0-9.0) 03/06/20 10:56 Ur Specific [place] 1.014 03/06/20 10:56 Urine Protein NEGATIVE mg/dL (NEGATIVE) 03/06/20 10:56 Urine Glucose (UA) NEGATIVE mg/dL (NEGATIVE) 03/06/20 10:56 Urine Ketones 20 mg/dL (NEGATIVE) H 03/06/20 10:56 Urine Blood NEGATIVE (NEGATIVE) 03/06/20 10:56 Urine Nitrite NEGATIVE (NEGATIVE) 03/06/20 10:56 Urine Bilirubin NEGATIVE (NEGATIVE) 03/06/20 10:56 Urine Urobilinogen 4.0 mg/dL (<2.0) H 03/06/20 10:56 Ur Leukocyte Esterase NEGATIVE (NEGATIVE) 03/06/20 10:56 Urine WBC (Auto) 2 /HPF 03/06/20 10:56 Urine RBC (Auto) 1 /HPF 03/06/20 10:56 Urine Bacteria (Auto) TRACE /HPF 03/06/20 10:56 Squamous Epi Cells Auto 5 /HPF 03/06/20 10:56 Urine Mucus (Auto) RARE /LPF 03/06/20 10:56 Urine Ascorbic Acid NEGATIVE (NEGATIVE) 03/06/20 10:56 03/06/20 03/06/20 11:35 14:04 CK-MB (CK-2) 0.83 Troponin I < 0.012 < 0.012 Impressions: Venous Doppler Study 03/06/20 00:00 IMPRESSION: 1. Minimal linear echogenic material within the left femoral vein on grayscale, possibly sequelae from prior DVT or trace residual clot. No other significant lower extremity DVT as visualized. 2. No evidence of DVT or SVT within the right lower extremity. Chest X-Ray 03/06/20 14:38 IMPRESSION: NO ACUTE RADIOGRAPHIC FINDING IN THE CHEST. Chest/Abdomen CTA 03/06/20 15:07 IMPRESSION: Acute thrombi are seen within the bilateral lower lobe segmental branches. No right heart strain. Plan Health Concerns: Acute bilateral pulmonary embolism in obese patient with predisposing morbidities that placed her at high risk for readmission. Plan of Treatment: Close community follow up and emphasis on medication compliance and dietary restrictions to improve health outcomes. Goals: Reduce readmission risk and improve health outcomes. Time Spent: Greater than 30 Minutes - Discussion about post acute care folow up plan, medication compliance, and dietary restriction. Stroke Is this a Stroke Patient?: No Acute Heart Failure Is this a Heart Failure Patient?: No
== END 2020-03-08 12:50 | disposition home or self-care (01) ==
LOC: ER 09:55 → EH 16:38 → 3S 17:45
PROVIDERS: ADMIT Internal Medicine Geriatric Medicine; ATTEND Internal Medicine Geriatric Medicine
DX: I26.93 Single subsegmental thrombotic pulmonary embolism without acute cor pulmonale (principal); I10 Essential (primary) hypertension; E11.8 Type 2 diabetes mellitus with unspecified complications; E66.01 Morbid (severe) obesity due to excess calories; K21.9 Gastro-esophageal reflux disease without esophagitis; K64.9 Unspecified hemorrhoids; I45.10 Unspecified right bundle-branch block; Z85.72 Personal history of non-Hodgkin lymphomas; Z86.718 Personal history of other venous thrombosis and embolism; Z68.42 Body mass index [BMI] 45.0-49.9, adult; Z23 Encounter for immunization; Z79.899 Other long term (current) drug therapy; Z79.84 Long term (current) use of oral hypoglycemic drugs; Z98.890 Other specified postprocedural states; Z90.49 Acquired absence of other specified parts of digestive tract; Z92.21 Personal history of antineoplastic chemotherapy
CPT/HCPCS: 93005; 99285; 96360; 96361; 36415 ×2; 82553; 82962 ×3; 82550; 85025 ×2; 85610; 85730; 80053 ×2; 81001; 84484; 83036; 85379; 80061; 93970; 71045; 71275; 90686; 93010; G0378 ×3; G0008; J1650 ×2; A9270 ×12; J7030; 90471; J3490

== ENCOUNTER 2020-03-23 16:43 | Emergency (ER) | payer MEDICARE ==
--- NOTE | 2020-03-23 17:10 | ER Document Report ---
ED Medical Screen (RME) - General Chief Complaint: Weakness Stated Complaint: WEAKNESS,DIZZINESS Time Seen by Provider: 03/23/20 17:00 Primary Care Provider: BERTO MCCLOUD MD [Primary Care Provider] - Follow up as needed Notes: Patient is 64-year-old female presents emergency department with a chief complaint of dizziness. Patient states that she was in the hospital March 17. Patient was recently admitted to the hospital. She was started on Colace and ended up having some diarrhea with a small amount of bleeding from her hemorrhoids. States that her dizziness is a "floaty feeling." Patient has history of a DVT. Denies any shortness of breath or difficulty breathing. She is currently on Eliquis. Exam: Normal strength in upper extremities. I have greeted and performed a rapid initial assessment of this patient. A comprehensive ED assessment and evaluation of the patient, analysis of test results and completion of medical decision making process will be conducted by an additional ED providers. TRAVEL OUTSIDE OF THE [place] IN LAST 30 DAYS: No - Related Data Allergies/Adverse Reactions: aspirin Adverse Reaction (Verified 03/23/20 16:57) codeine [Codeine] Adverse Reaction (Verified 03/23/20 16:57) Past Medical History - Past Medical History Cardiac Medical History: Reports: Hx Hypertension Endocrine Medical History: Reports: Hx Diabetes Mellitus Type 2. Denies: Hx Diabetes Mellitus Type 1 Renal/ Medical History: Denies: Hx Peritoneal Dialysis Malignancy Medical History: Reports: Hx Lymphoma GI Medical History: Reports: Hx Gastroesophageal Reflux Disease Psychiatric Medical History: Denies: Hx Depression Past Surgical History: Reports: Hx Abdominal Surgery, Hx Cholecystectomy, Hx Hysterectomy, Hx Oral Surgery, Hx Vascular Surgery - DVT, Other - Lymphoma resection - Immunizations Hx Diphtheria, Pertussis, Tetanus Vaccination: Yes Physical Exam - Vital signs Vitals: Temp Pulse Resp BP Pulse Ox 98.3 F 91 16 130/71 H 98 03/23/20 16:50 03/23/20 16:50 03/23/20 16:50 03/23/20 16:50 03/23/20 16:50 Course - Vital Signs Vital signs: Temp Pulse Resp BP Pulse Ox 98.3 F 91 16 130/71 H 98 03/23/20 16:50 03/23/20 16:50 03/23/20 16:50 03/23/20 16:50 03/23/20 16:50 Doctor's Discharge - Discharge Referrals: BERTO MCCLOUD MD [Primary Care Provider] - Follow up as needed
[2020-03-23 17:57] LABS: ABSOLUTE BASOPHILS # (AUTO) 0.1 10^3/uL (0.0-0.2); ABSOLUTE EOSINOPHILS # (AUTO) 0.2 10^3/uL (0.0-0.6); ABSOLUTE LYMPHOCYTES (AUTO) 3.4 10^3/uL (0.5-4.7); ABSOLUTE MONOCYTES (AUTO) 0.7 10^3/uL (0.1-1.4); ABSOLUTE NEUT (AUTO) 3.4 10^3/uL (1.7-8.2); EOSINOPHILS % (AUTO) 3.2 % (0-6); HEMATOCRIT 37.9 % (36.0-47.0); HEMOGLOBIN 12.9 g/dL (12.0-15.5); LYMPHOCYTES % (AUTO) 43.4 % (13-45); MEAN CORPUSCULAR HEMOGLOBIN 30.2 pg (27.0-33.4); MEAN CORPUSCULAR HGB CONC 33.9 g/dL (32.0-36.0); MEAN CORPUSCULAR VOLUME 89 fl (80-97); MONOCYTES % (AUTO) 9.5 % (3-13); PLATELET COUNT 296 10^3/uL (150-450); RED BLOOD COUNT 4.25 10^6/uL (3.72-5.28); RED CELL DISTRIBUTION WIDTH 15.5 % (11.5-14.0); SEGMENTED NEUTROPHILS % (AUTO) 42.9 % (42-78); TOTAL CELLS COUNTED % (AUTO) 100 %; WHITE BLOOD COUNT 7.8 10^3/uL (4.0-10.5)
[2020-03-23 18:46] LABS: APPEARANCE,URINE CLEAR; BILIRUBIN,URINE NEGATIVE (NEGATIVE); COLOR,URINE YELLOW; GLUCOSE, URINE NEGATIVE (NEGATIVE); KETONES,URINE NEGATIVE (NEGATIVE); LEUKOCYTE ESTERASE,URINE NEGATIVE (NEGATIVE); NITRITE,URINE NEGATIVE (NEGATIVE); PROTEIN,URINE NEGATIVE (NEGATIVE); URINE SPECIFIC GRAVITY 1.014; UROBILINOGEN,URINE NEGATIVE mg/dL (<2.0)
[2020-03-23 19:01] LABS: ALBUMIN 4.4 g/dL (3.5-5.0); ALKALINE PHOSPHATASE 107 U/L (38-126); ANION GAP 13 (5-19); ASPARTATE AMINO TRANSFERASE 23 U/L (14-36); BILIRUBIN,DIRECT 0.4 mg/dL (0.0-0.4); BILIRUBIN,TOTAL 1.3 mg/dL (0.2-1.3); BLOOD UREA NITROGEN 25 mg/dL (7-20); CALCIUM 9.6 mg/dL (8.4-10.2); CARBON DIOXIDE 23 mmol/L (22-30); CHLORIDE 102 mmol/L (98-107); GLUCOSE 112 mg/dL (75-110); POTASSIUM 4.4 mmol/L (3.6-5.0)
--- NOTE | 2020-03-23 19:16 | ER Document Report ---
ED General - General Chief Complaint: Dizziness Stated Complaint: WEAKNESS,DIZZINESS Time Seen by Provider: 03/23/20 17:00 Primary Care Provider: BERTO MCCLOUD MD [Primary Care Provider] - Follow up as needed TRAVEL OUTSIDE OF THE [place] IN LAST 30 DAYS: No - HPI Notes: 64-year-old female presents with dizziness. Patient states she is has had dizziness, further described as feeling lightheaded for the past week. She states that when she goes from a sitting to standing position, she will feel lightheaded and as if she is floating. She states she will occasionally feel a flushed sensation as well. She denies a room spinning sensation. Patient states that she was recently started on Colace, this caused her to have multiple watery bowel movements per day. She states that last Tuesday she discontinued use of Colace and her symptoms improved. She again took a dose of Colace on and seems that her symptoms have returned. Takes Metformin which gives her diarrhea as well. Also reports she has had 2 episodes where her blood pressure has been 90/70, therefore she did not take her blood pressure medication. Patient has had 2 recent hospital admissions. In February she had a bowel obstruction, and at the beginning March she was diagnosed with bilater al subsegmental PEs and was started on Eliquis. She denies any rectal bleeding. She denies chest pain or shortness of breath. - Related Data Allergies/Adverse Reactions: aspirin Adverse Reaction (Verified 03/23/20 16:57) codeine [Codeine] Adverse Reaction (Verified 03/23/20 16:57) Past Medical History - General Information source: Patient - Social History Smoking Status: Never Smoker Chew tobacco use (# tins/day): No Drug Abuse: None Family History: Reviewed & Not Pertinent Patient has homicidal ideation: No - Past Medical History Cardiac Medical History: Reports: Hx Hypertension Endocrine Medical History: Reports: Hx Diabetes Mellitus Type 2. Denies: Hx Diabetes Mellitus Type 1 Renal/ Medical History: Denies: Hx Peritoneal Dialysis Malignancy Medical History: Reports: Hx Lymphoma GI Medical History: Reports: Hx Gastroesophageal Reflux Disease Psychiatric Medical History: Denies: Hx Depression Past Surgical History: Reports: Hx Abdominal Surgery, Hx Cholecystectomy, Hx Hysterectomy, Hx Oral Surgery, Hx Vascular Surgery - DVT, Other - Lymphoma resection - Immunizations Hx Diphtheria, Pertussis, Tetanus Vaccination: Yes Review of Systems - Review of Systems Constitutional: denies: Fever EENT: No symptoms reported Cardiovascular: denies: Chest pain Respiratory: denies: Short of breath Gastrointestinal: denies: Abdominal pain Genitourinary: No symptoms reported Female Genitourinary: No symptoms reported Musculoskeletal: No symptoms reported Skin: No symptoms reported Hematologic/Lymphatic: No symptoms reported Neurological/Psychological: Weakness - Generalized Physical Exam - Vital signs Vitals: Temp Pulse Resp BP Pulse Ox 98.3 F 91 16 130/71 H 98 03/23/20 16:50 03/23/20 16:50 03/23/20 16:50 03/23/20 16:50 03/23/20 16:50 - General General appearance: Appears well, Alert In distress: None - HEENT Head: Normocephalic, Atraumatic Extraocular movements intact: Yes Pupils: PERRL - Respiratory Breath sounds: Normal - Cardiovascular Rhythm: Regular Heart sounds: Normal auscultation Normal capillary refill: Yes - Abdominal Tenderness: Nontender - Extremities General upper extremity: Normal ROM General lower extremity: Normal ROM. 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 Has had 2 major recent hospitalizations in the past month. Her lightheadedness sounds postural in nature. Suspect some volume loss from multiple bowel movements. Per med list review, she is also on hydrochlorothiazide, this could be attributing as well. Will give 1 L of fluids. She has no focal neuro deficit, voices no cardiopulmonary complaints, hemodynamically stable currently. Possible an element of physical deconditioning given her 2 recent admissions. Triage labs have resulted. No leukocytosis or left shift. No acute anemia. Electrolytes okay. Creatinine within normal limits. No elevation of LFTs. Urine does not suggest UTI. 03/23/20 20:49 Patient states that she is feeling better after receiving fluids. I rediscussed labs with her. Encouraged her to please call PCP in the morning to discuss potential medication adjustments. Return precautions given, patient stable at time of discharge. - Vital Signs Vital signs: Temp Pulse Resp BP Pulse Ox 98.1 F 80 18 132/82 H 96 03/23/20 21:30 03/23/20 21:30 03/23/20 21:30 03/23/20 21:30 03/23/20 21:30 - Laboratory Result Diagrams: 03/23/20 17:36 03/23/20 18:10 Laboratory results interpreted by me: 03/23/20 03/23/20 03/23/20 17:36 18:10 18:10 RDW 15.5 H BUN 25 H Est GFR ( Amer) 55 L Est GFR (MDRD) Non-Af 45 L Glucose 112 H Urine Blood SMALL H Discharge - Discharge Clinical Impression: Lightheaded Disposition: HOME, SELF-CARE Additional Instructions: Please be sure to drink plenty of fluids. Please call your PCP in the morning to discuss possible medication changes. Return to the emergency department for any concerning worsening symptoms. Referrals: BERTO MCCLOUD MD [Primary Care Provider] - Follow up as needed
[2020-03-23] MEDS ORDERED: RINGERS SOLUTION,LACTATED 1,000 ML IV ONE (19:31)
[2020-03-23 21:31] VITALS: BP 132/82
== END 2020-03-23 21:47 | disposition home or self-care (01) ==
LOC: ER 16:43
DX: R42 Dizziness and giddiness (principal); R53.1 Weakness; I10 Essential (primary) hypertension; E11.9 Type 2 diabetes mellitus without complications; Z88.6 Allergy status to analgesic agent; Z90.710 Acquired absence of both cervix and uterus
CPT/HCPCS: 99284; 96360; 36415; 82962; 85025; 80053; 81001; J7120

== ENCOUNTER 2020-03-25 04:46 | Emergency (ER) | payer MEDICARE ==
[2020-03-25 08:17] LABS: ABSOLUTE BASOPHILS # (AUTO) 0.1 10^3/uL (0.0-0.2); ABSOLUTE EOSINOPHILS # (AUTO) 0.2 10^3/uL (0.0-0.6); ABSOLUTE MONOCYTES (AUTO) 0.6 10^3/uL (0.1-1.4); ABSOLUTE NEUT (AUTO) 2.9 10^3/uL (1.7-8.2); EOSINOPHILS % (AUTO) 2.9 % (0-6); HEMATOCRIT 40.2 % (36.0-47.0); HEMOGLOBIN 13.6 g/dL (12.0-15.5); LYMPHOCYTES % (AUTO) 44.5 % (13-45); MEAN CORPUSCULAR HEMOGLOBIN 30.2 pg (27.0-33.4); MEAN CORPUSCULAR HGB CONC 33.8 g/dL (32.0-36.0); MEAN CORPUSCULAR VOLUME 89 fl (80-97); MONOCYTES % (AUTO) 8.9 % (3-13); PLATELET COUNT 218 10^3/uL (150-450); RED BLOOD COUNT 4.51 10^6/uL (3.72-5.28); RED CELL DISTRIBUTION WIDTH 15.4 % (11.5-14.0); SEGMENTED NEUTROPHILS % (AUTO) 42.7 % (42-78); TOTAL CELLS COUNTED % (AUTO) 100 %; WHITE BLOOD COUNT 6.8 10^3/uL (4.0-10.5)
[2020-03-25 08:38] LABS: ALBUMIN 4.5 g/dL (3.5-5.0); ALKALINE PHOSPHATASE 104 U/L (38-126); ANION GAP 12 (5-19); ASPARTATE AMINO TRANSFERASE 24 U/L (14-36); BILIRUBIN,DIRECT 0.3 mg/dL (0.0-0.4); BILIRUBIN,TOTAL 1.2 mg/dL (0.2-1.3); BLOOD UREA NITROGEN 21 mg/dL (7-20); CALCIUM 9.8 mg/dL (8.4-10.2); CARBON DIOXIDE 25 mmol/L (22-30); CHLORIDE 104 mmol/L (98-107); CREATINE KINASE 80 U/L (30-135); GLUCOSE 131 mg/dL (75-110); POTASSIUM 4.3 mmol/L (3.6-5.0); TOTAL PROTEIN 8.1 g/dL (6.3-8.2)
[2020-03-25 08:49] LABS: CREATINE KINASE MB 0.63 ng/mL (<4.55)
[2020-03-25 08:50] LABS: APPEARANCE,URINE SLIGHTLY-CLOUDY; BILIRUBIN,URINE NEGATIVE (NEGATIVE); COLOR,URINE YELLOW; GLUCOSE, URINE NEGATIVE (NEGATIVE); KETONES,URINE NEGATIVE (NEGATIVE); LEUKOCYTE ESTERASE,URINE NEGATIVE (NEGATIVE); NITRITE,URINE NEGATIVE (NEGATIVE); PROTEIN,URINE NEGATIVE (NEGATIVE); URINE SPECIFIC GRAVITY 1.013; UROBILINOGEN,URINE NEGATIVE mg/dL (<2.0)
[2020-03-25 08:54] LABS: TROPONIN I < 0.012 ng/mL
--- NOTE | 2020-03-25 10:31 | RADIOLOGY REPORT (SQ) ---
EXAM DESCRIPTION: CT HEAD WITHOUT IMAGES COMPLETED DATE/TIME: 03/25/2020 10:10 am REASON FOR STUDY: dizzy COMPARISON: None. TECHNIQUE: Axial images acquired through the brain without intravenous contrast. Images reviewed wi th bone, brain and subdural windows. Additional sagittal and coronal reconstructions were generated. Images stored on PACS. All CT scanners at this facility use dose modulation, iterative reconstruction, and/or weight based d osing when appropriate to reduce radiation dose to as low as reasonably achievable (ALARA). [facility]: Dose Right [facility]: CareDose [facility]: Dose Right [facility]: Teradose 4D [facility]: [employer] RADIATION DOSE: CT Rad equipment meets quality standard of care and radiation dose reduction techniq ues were employed. CTDIvol: 53.2 mGy. DLP: 1017 mGy-cm. mGy. LIMITATIONS: None. FINDINGS: VENTRICLES: Normal size and contour. CEREBRUM: No masses. No hemorrhage. No midline shift. No evidence for acute infarction. Normal gra y/white matter differentiation. No areas of low density in the white matter. CEREBELLUM: No masses. No hemorrhage. No alteration of density. No evidence for acute infarction. EXTRAAXIAL SPACES: No fluid collections. No masses. ORBITS AND GLOBE: No intra- or extraconal masses. Normal contour of globe without masses. CALVARIUM: No fracture. PARANASAL SINUSES: No fluid or mucosal thickening. SOFT TISSUES: No mass or hematoma. OTHER: No other significant finding. IMPRESSION: NORMAL BRAIN CT WITHOUT CONTRAST. EVIDENCE OF ACUTE STROKE: NO. COMMENT: Quality ID # [id number]: Final reports with documentation of one or more dose reduction techniques (e.g., Automated exposure control, adjustment of the mA and/or kV according to patient size, use of iterative reconstruction technique) TECHNICAL DOCUMENTATION: JOB ID: [id number] 2010 [employer]- All Rights Reserved Reading location - IP/workstation name: [email or web address]
[2020-03-25] MEDS ORDERED: LORAZEPAM INJ 2 MG/1 ML VIAL IV ONE (12:19)
--- NOTE | 2020-03-25 14:21 | RADIOLOGY REPORT (SQ) ---
EXAM DESCRIPTION: MRI HEAD WITHOUT IMAGES COMPLETED DATE/TIME: 03/25/2020 1:33 pm REASON FOR STUDY: dizzy COMPARISON: None. TECHNIQUE: Multiplanar imaging includes non-contrasted T1, T2, FLAIR, and diffusion with ADC map seq uences. Images stored on PACS. LIMITATIONS: None. FINDINGS: ANATOMY: No anomalies. Normal vascular flow voids. Pituitary fossa normal. CSF SPACES: Normal in size and contour. No hemorrhage. CEREBRUM: Sulci and gyri normal in size and contour. Normal white matter signal on FLAIR imaging. No evidence of hemorrhage, mass, or extraaxial fluid collection. POSTERIOR FOSSA: No signal alteration. No hemorrhage. No edema, masses or mass effect. Internal zach tory canals, cerebello-pontine angles, mastoids normal. DIFFUSION IMAGING: Negative for acute or sub-acute infarction. ORBITS: No masses. Globes normal. PARANASAL SINUSES: No fluid levels. Mucosa normal. OTHER: No other significant finding. IMPRESSION: NORMAL MRI OF THE BRAIN WITHOUT INTRAVENOUS GADOLINIUM CONTRAST. EVIDENCE OF ACUTE STROKE: NO. TECHNICAL DOCUMENTATION: JOB ID: [id number] 2010 [employer]- All Rights Reserved Reading location - IP/workstation name: [email or web address]
--- NOTE | 2020-03-25 15:57 | ER Document Report ---
ED Dizziness/Weakness - General Chief Complaint: Dizziness Stated Complaint: DIZZINESS Time Seen by Provider: 03/25/20 09:14 Primary Care Provider: BERTO MCCLOUD MD [Primary Care Provider] - Follow up as needed Mode of Arrival: Ambulatory Information source: Patient TRAVEL OUTSIDE OF THE [place] IN LAST 30 DAYS: No - HPI Notes: Patient comes in complaining of dizziness. She has had this dizziness for roughly 5 to 6 days. She was seen here several days ago and was instructed to stop some of her medications as the felt this may be causing the dizziness. She states she has stopped those medicines but still is having trouble with dizziness. She states occasionally she feels like the room is moving but not currently. She states she currently just feels more lightheaded and has some humming in her ears bilaterally. She no longer has a sensation of vertigo. She denies any pain. No nausea or vomiting. The symptoms seem to get worse with movement and better with rest. They are mild to moderate in intensity. They are intermittent. - Related Data Allergies/Adverse Reactions: aspirin Adverse Reaction (Verified 03/25/20 08:38) codeine [Codeine] Adverse Reaction (Verified 03/25/20 08:38) Home Medications: elequis, bp med, chol med Past Medical History - General Information source: Patient - Social History Smoking Status: Never Smoker Frequency of alcohol use: None Drug Abuse: None Family History: Reviewed & Not Pertinent - Past Medical History Cardiac Medical History: Reports: Hx Hypertension Endocrine Medical History: Reports: Hx Diabetes Mellitus Type 2. Denies: Hx Diabetes Mellitus Type 1 Renal/ Medical History: Denies: Hx Peritoneal Dialysis Malignancy Medical History: Reports: Hx Lymphoma GI Medical History: Reports: Hx Gastroesophageal Reflux Disease Psychiatric Medical History: Denies: Hx Depression Past Surgical History: Reports: Hx Abdominal Surgery, Hx Cholecystectomy, Hx Hysterectomy, Hx Oral Surgery, Hx Vascular Surgery - DVT, Other - Lymphoma resection - Immunizations Hx Diphtheria, Pertussis, Tetanus Vaccination: Yes Review of Systems - Review of Systems Constitutional: denies: Chills, Fever Cardiovascular: denies: Chest pain, Palpitations Respiratory: denies: Cough, Short of breath -: Yes All other systems reviewed and negative Physical Exam - Vital signs Vitals: Temp Pulse Resp BP Pulse Ox 98.3 F 83 14 124/76 98 03/25/20 05:14 03/25/20 05:14 03/25/20 05:14 03/25/20 05:14 03/25/20 05:14 Interpretation: Normal - General General appearance: Appears well, Alert - HEENT Head: Normocephalic, Atraumatic Eyes: Normal Pupils: PERRL - Respiratory Respiratory status: No respiratory distress Chest status: Nontender Breath sounds: Normal Chest palpation: Normal - Cardiovascular Rhythm: Regular Heart sounds: Normal auscultation Murmur: No - Abdominal Inspection: Normal Distension: No distension Bowel sounds: Normal Tenderness: Nontender Organomegaly: No organomegaly - Back Back: Normal, Nontender - Extremities General upper extremity: Normal inspection, Nontender, Normal color, Normal ROM, Normal temperature General lower extremity: Normal inspection, Nontender, Normal color, Normal ROM, Normal temperature, Normal weight bearing. No: Ben's sign - Neurological Neuro grossly intact: Yes Cognition: Normal Orientation: AAOx4 Shakir Coma Scale Eye Opening: Spontaneous Shakir Coma Scale Verbal: Oriented Shakir Coma Scale Motor: Obeys Commands [place] Coma Scale Total: 15 Speech: Normal Cranial nerves: Normal Cerebellar coordination: Normal Motor strength normal: LUE, RUE, LLE, RLE Additional motor exam normals: Equal production welder. No: Pronator drift Sensory: Normal - Psychological Associated symptoms: Normal affect, Normal mood - Skin Skin Temperature: Warm Skin Moisture: Dry Skin Color: Normal Course - Re-evaluation Re-evalutation: 03/25/20 15:58 Patient complains of vertigo and dizziness. By the time she arrived here she states the vertigo is better but she still feels lightheaded and dizzy. A cause of the dizziness at this time remains elusive. Imaging by head CT and MRI are both unremarkable. She does not appear to have any type of arrhythmia. Her neurological exam is unremarkable. I feel the best course at this time is to treat the patient has a benign positional vertigo and refer the patient to neurology. - Vital Signs Vital signs: Temp Pulse Resp BP Pulse Ox 98.3 F 75 23 H 137/83 H 99 03/25/20 05:14 03/25/20 08:53 03/25/20 11:04 03/25/20 08:57 03/25/20 10:03 - Laboratory Result Diagrams: 03/25/20 07:59 03/25/20 07:59 Laboratory results interpreted by me: 03/25/20 03/25/20 03/25/20 07:59 07:59 07:59 RDW 15.4 H BUN 21 H Est GFR (MDRD) Non-Af 57 L Glucose 131 H Urine Blood SMALL H - Diagnostic Test Radiology reviewed: Image reviewed, Reports reviewed Discharge - Discharge Clinical Impression: Dizziness Condition: Stable Disposition: HOME, SELF-CARE Instructions: Dizziness ([facility]) Additional Instructions: Call neurology as soon as possible to arrange follow up Prescriptions: Meclizine HCl 25 mg PO Q6 PRN 9 Days #15 tablet PRN Reason: Dizziness Forms: Return to Work Referrals: EDWIN SOLARES MD [COMMUNITY BASED STAFF] - Follow up in 3-5 days
[2020-03-25 16:17] VITALS: BP 163/99
--- NOTE | 2020-03-27 17:53 | EKG REPORT ---
SEVERITY:- ABNORMAL ECG - SINUS RHYTHM LVH WITH SECONDARY REPOLARIZATION ABNORMALITY : Confirmed by: Tyler Allen MD 27-Mar-2020 17:52:32
== END 2020-03-25 16:17 | disposition home or self-care (01) ==
LOC: ER 04:46
DX: R42 Dizziness and giddiness (principal); I10 Essential (primary) hypertension; E11.9 Type 2 diabetes mellitus without complications; Z88.6 Allergy status to analgesic agent; Z79.01 Long term (current) use of anticoagulants; Z90.49 Acquired absence of other specified parts of digestive tract; Z90.710 Acquired absence of both cervix and uterus
CPT/HCPCS: 99285; 96374; 36415; 82553; 82550; 85025; 80053; 81001; 84484; 70551; 70450; J2060; 93005; 93010

== ENCOUNTER 2020-06-08 07:21 | Emergency (ER) | payer MEDICARE, MEDICAID ==
--- NOTE | 2020-06-08 08:45 | ER Document Report ---
ED General - General Chief Complaint: Blood Pressure Problem Stated Complaint: HIGH BLOOD PRESSURE Time Seen by Provider: 06/08/20 08:34 Primary Care Provider: BERTO MCCLOUD MD [Primary Care Provider] - Follow up in 1 week Notes: Patient is a 64-year-old female who comes emergency department for chief concerns about her blood pressure being elevated. She also reports sensation of dizziness which is chronic, she states briefly this morning she felt like her vision was blurred. She denies headache, passing out, nausea, vomiting, chest pain, palpitations, shortness of breath, fever, focal numbness or weakness. She states that she has tried taking meclizine which is prescribed for her for her chronic vertigo and dizziness but it seems not to help at all. She states her blood pressure being elevated is the main reason she came in this morning. She is due for her irbesartan 300 mg at 9 AM. She also has a history of pulmonary embolism and is on Xarelto. She has diet-controlled diabetes. She denies head injury. TRAVEL OUTSIDE OF THE [place] IN LAST 30 DAYS: No - Related Data Allergies/Adverse Reactions: aspirin Adverse Reaction (Verified 06/08/20 08:13) codeine [Codeine] Adverse Reaction (Verified 06/08/20 08:13) Home Medications: xarelto. irbesartan. meclizine Past Medical History - General Information source: Patient - Social History Smoking Status: Never Smoker Chew tobacco use (# tins/day): No Frequency of alcohol use: None Drug Abuse: None Lives with: Family Family History: Reviewed & Not Pertinent - Past Medical History Cardiac Medical History: Reports: Hx Hypertension Endocrine Medical History: Reports: Hx Diabetes Mellitus Type 2. Denies: Hx Diabetes Mellitus Type 1 Renal/ Medical History: Denies: Hx Peritoneal Dialysis Malignancy Medical History: Reports: Hx Lymphoma GI Medical History: Reports: Hx Gastroesophageal Reflux Disease Psychiatric Medical History: Denies: Hx Depression Past Surgical History: Reports: Hx Abdominal Surgery, Hx Cholecystectomy, Hx Hysterectomy, Hx Oral Surgery, Hx Vascular Surgery - DVT, Other - Lymphoma resection - Immunizations Hx Diphtheria, Pertussis, Tetanus Vaccination: Yes Review of Systems - Review of Systems Constitutional: No symptoms reported EENT: No symptoms reported Cardiovascular: No symptoms reported Respiratory: No symptoms reported Gastrointestinal: No symptoms reported Genitourinary: No symptoms reported Female Genitourinary: No symptoms reported Musculoskeletal: No symptoms reported Skin: No symptoms reported Hematologic/Lymphatic: No symptoms reported Neurological/Psychological: See HPI Physical Exam - Vital signs Vitals: Temp Pulse Resp BP Pulse Ox 98.3 F 87 16 181/99 H 98 06/08/20 07:38 06/08/20 07:38 06/08/20 07:38 06/08/20 07:38 06/08/20 07:38 - Notes Notes: GENERAL: Alert, interacts well. No acute distress. HEAD: Normocephalic, atraumatic. EYES: Pupils equal, round, and reactive to light. Extraocular movements intact. ENT: Oral mucosa moist, tongue midline. Oropharynx unremarkable. Airway patent. Nares patent, sinuses non-tender, ear canals unremarkable, TM's intact. NECK: Full range of motion. Supple. Trachea midline. No lymphadenopathy. LUNGS: Clear to auscultation bilaterally, no wheezes, rales, or rhonchi. No respiratory distress. Non-tender chest wall. HEART: Regular rate and rhythm. No murmur ABDOMEN: Soft, non-tender. Non-distended. EXTREMITIES: Moves all 4 extremities spontaneously. No edema, normal radial and dorsalis pedis pulses bilaterally. No cyanosis. BACK: no cervical, thoracic, lumbar midline tenderness. No saddle anesthesia, normal distal neurovascular exam. Moves all extremities in full range of motion. NEUROLOGICAL: Alert and oriented x3. Normal speech. Cranial nerves II through XII grossly intact. Strength 5/5 in all extremities. PSYCH: Normal affect, normal mood. SKIN: Warm, dry, normal turgor. No rashes or lesions noted. Course - Re-evaluation Re-evalutation: Patient is alert and well-appearing on my exam. She does not have current visual changes, she does not currently have a headache, although she is currently complaining of some lightheadedness. To some degree this is chronic. Her blood pressure is elevated at 180 systolic. She is on a blood thinner. CAT scan was performed and unremarkable. Neurological exam unremarkable. On repeat patient without complaints other than the ongoing lightheadedness. She states her meclizine does not work. She states that she had terrible lightheadedness when she was started on Eliquis, she was switched to Xarelto for this reason, she states she has not discussed this with her animal trainer/oncologist since that time. She is asking for an alternative to meclizine for the symptoms of vertigo. After discussion she was provided with a small amount of Ativan to take at home for this. We discussed precautions in regards to this. She was to follow-up closely. Her laboratory work-up is unremarkable. I do not suspect acute intracranial abnormality or cardiac abnormality based on her evaluation, lack of chest pain, and the work-up. Discussed follow-up and return precautions. Patient states understanding and agreement. Stable and well-appearing at time of discharge. - Vital Signs Vital signs: Temp Pulse Resp BP Pulse Ox 98.3 F 87 20 150/82 H 98 06/08/20 07:38 06/08/20 07:38 06/08/20 09:39 06/08/20 10:49 06/08/20 09:39 - Laboratory Results Result Diagrams: 06/08/20 08:53 06/08/20 08:53 Laboratory Results Interpreted: 06/08/20 06/08/20 08:53 08:53 RDW 16.8 H Glucose 123 H Critical Laboratory Results Reviewed: No Critical Results - Radiology Results Critical Radiology Results Reviewed: No Critical Results - EKG Interpretation by Me Additional EKG results interpreted by me: EKG shows sinus rhythm at a rate of 81, left axis deviation, borderline T waves anteriorly. No ST segment changes in consecutive leads. No significant change from prior. Discharge - Discharge Clinical Impression: Elevated blood pressure reading, Dizziness Condition: Stable Disposition: HOME, SELF-CARE Instructions: Benzodiazepines ([facility]) Additional Instructions: Your blood pressure was elevated today, however your evaluation does not show any concerning abnormality. Keep a journal of your blood pressure, record 2-3 blood pressures daily for a week and discuss your blood pressure management with your primary care provider. Because of your ongoing dizziness, specifically worse with his Xarelto, d iscussed your anticoagulation medication with your animal trainer/oncologist. You can use your meclizine if needed, you have also been given Ativan to use if needed for dizziness symptoms. Use as directed. Return if you worsen including severe headache, vomiting, chest pain, difficulty breathing, or any other concerning or worsening symptoms. Prescriptions: Lorazepam [Ativan 0.5 mg Tablet] 0.5 mg PO Q4 PRN #12 tab PRN Reason: Referrals: BERTO MCCLOUD MD [Primary Care Provider] - Follow up in 1 week
--- NOTE | 2020-06-08 09:14 | RADIOLOGY REPORT (SQ) ---
EXAM DESCRIPTION: CT HEAD WITHOUT IMAGES COMPLETED DATE/TIME: 06/08/2020 9:03 am REASON FOR STUDY: dizzy, vision blurred, hypertensive, on eliquis COMPARISON: 03/25/2020 TECHNIQUE: Axial images acquired through the brain without intravenous contrast. Images reviewed wi th bone, brain and subdural windows. Additional sagittal and coronal reconstructions were generated. Images stored on PACS. All CT scanners at this facility use dose modulation, iterative reconstruction, and/or weight based d osing when appropriate to reduce radiation dose to as low as reasonably achievable (ALARA). [facility]: Dose Right [facility]: CareDose [facility]: Dose Right [facility]: Teradose 4D [facility]: [employer] RADIATION DOSE: CT Rad equipment meets quality standard of care and radiation dose reduction techniq ues were employed. CTDIvol: 49.0 mGy. DLP: 985 mGy-cm. mGy. LIMITATIONS: None. FINDINGS: VENTRICLES: Normal size and contour. CEREBRUM: No masses. No hemorrhage. No midline shift. No evidence for acute infarction. Normal gra y/white matter differentiation. No areas of low density in the white matter. CEREBELLUM: No masses. No hemorrhage. No alteration of density. No evidence for acute infarction. EXTRAAXIAL SPACES: No fluid collections. No masses. ORBITS AND GLOBE: No intra- or extraconal masses. Normal contour of globe without masses. CALVARIUM: No fracture. PARANASAL SINUSES: No fluid or mucosal thickening. SOFT TISSUES: No mass or hematoma. OTHER: No other significant finding. IMPRESSION: NORMAL BRAIN CT WITHOUT CONTRAST. EVIDENCE OF ACUTE STROKE: NO. COMMENT: Quality ID # [id number]: Final reports with documentation of one or more dose reduction techniques (e.g., Automated exposure control, adjustment of the mA and/or kV according to patient size, use of iterative reconstruction technique) TECHNICAL DOCUMENTATION: JOB ID: [id number] 2010 [employer]- All Rights Reserved Reading location - IP/workstation name: [email or web address]
[2020-06-08 09:16] LABS: ABSOLUTE EOSINOPHILS # (AUTO) 0.1 10^3/uL (0.0-0.6); ABSOLUTE LYMPHOCYTES (AUTO) 2.7 10^3/uL (0.5-4.7); ABSOLUTE MONOCYTES (AUTO) 0.6 10^3/uL (0.1-1.4); ABSOLUTE NEUT (AUTO) 2.7 10^3/uL (1.7-8.2); BASOPHILS % (AUTO) 0.4 % (0-2); EOSINOPHILS % (AUTO) 2.1 % (0-6); HEMATOCRIT 36.2 % (36.0-47.0); HEMOGLOBIN 12.2 g/dL (12.0-15.5); LYMPHOCYTES % (AUTO) 43.8 % (13-45); MEAN CORPUSCULAR HGB CONC 33.8 g/dL (32.0-36.0); MEAN CORPUSCULAR VOLUME 89 fl (80-97); MONOCYTES % (AUTO) 9.3 % (3-13); PLATELET COUNT 181 10^3/uL (150-450); RED BLOOD COUNT 4.08 10^6/uL (3.72-5.28); RED CELL DISTRIBUTION WIDTH 16.8 % (11.5-14.0); SEGMENTED NEUTROPHILS % (AUTO) 44.4 % (42-78); TOTAL CELLS COUNTED % (AUTO) 100 %; WHITE BLOOD COUNT 6.1 10^3/uL (4.0-10.5)
[2020-06-08 09:31] LABS: ANION GAP 7 (5-19); BLOOD UREA NITROGEN 17 mg/dL (7-20); CARBON DIOXIDE 26 mmol/L (22-30); CHLORIDE 107 mmol/L (98-107); GLUCOSE 123 mg/dL (75-110); POTASSIUM 4.4 mmol/L (3.6-5.0)
--- NOTE | 2020-06-08 09:43 | EKG REPORT ---
SEVERITY:- ABNORMAL ECG - SINUS RHYTHM PROBABLE LEFT ATRIAL ABNORMALITY LVH WITH SECONDARY REPOLARIZATION ABNORMALITY : Confirmed by: Tyler Allen MD 08-Jun-2020 09:42:59
[2020-06-08 10:58] VITALS: BP 150/82
== END 2020-06-08 10:59 | disposition home or self-care (01) ==
LOC: ER 07:21
DX: R03.0 Elevated blood-pressure reading, without diagnosis of hypertension (principal); R42 Dizziness and giddiness; H53.8 Other visual disturbances; Z79.01 Long term (current) use of anticoagulants; Z88.6 Allergy status to analgesic agent
CPT/HCPCS: 36415; 70450; 85025; 93005; 93010; 99285